=== PATIENT | male | born 1965 | race Caucasian/White ===

== ENCOUNTER 2018-07-07 02:18 | Inpatient (IN) ==
--- NOTE | 2018-07-07 03:30 | Emergency Department Note ---
Disposition Clinical Impression: Atrial fibrillation with RVR, Elevated troponin Fluid overload Qualifiers: Hypervolemia type: unspecified Qualified Code(s): E87.70 - Fluid overload, unspecified Disposition: Admitted As Inpatient Condition: Fair Referrals: NONE,PCP [Primary Care Provider] - Forms: ED Satisfaction Letter Time of Disposition: 05:55 General Adult HPI - General Chief complaint: ED Shortness of Breath/Dyspnea Stated complaint: sob and legs swelling Time Seen by Provider: 07/07/18 02:45 Source: patient, EMS Limitations: no limitations Nursing Notes Reviewed: Yes Vital Signs Reviewed: Yes - History of Present Illness HPI Narrative: Patient is a 52-year-old male presenting with difficulty breathing. Patient has little known medical history as he does not follow with her regular physician. Patient states over the past 4-5 months she has been noticing increased weight gain, with his regular weight being around 350 pounds, currently 390 pounds with significant lower extremity swelling. He states that shortness of breath is significantly worsened at night when he is laying flat, currently he does have to lay upward in a recliner to sleep. He denies any chest pain, no nausea or vomiting. No diaphoresis. Does state that his lower extrude a swelling has Nicho worsening over the past few weeks. Shortness of breath worse over the past few days significant worse over the last day. He does not wear oxygen at home. He is a chronic smoker. Patient denies history of heart issues, however he does not follow a physician regularly. He does not take any medications daily. He does state that he has been diagnosed with atrial fibrillation, however has been unable to afford his medications, therefore is no longer taking his warfarin. No fever, chills or cough. Pain Scale: 0 - Related Data Allergies Allergy/AdvReac Type Severity Reaction Status Date / Time No Known Allergies Allergy Verified 07/07/18 02:25 Review of Systems: In addition to that documented in the HPI above, the additional ROS was obtained: General: Denies fever. Denies chills. Denies weight loss. Denies behavioral change. Affirms weight gain Eyes: Denies visual changes. ENT: Denies nasal congestion. Denies sore throat. Denies hearing change. Cardio: Denies chest pain. Denies palpitations. Respiratory: Affirms shortness of breath. GI: Denies nausea, Denies vomiting, or diarrhea. Denies hematochezia denies melena. Denies abdominal pain. : Denies dysuria, hematuria, or urinary retention MSK: Affirms lower extrude a swelling Neuro: Denies slurred speech. Denies numbness or tingling. Denies focal weakness. Denies headache. Denies loss of consciousness. Psych: Denies mood changes. Past Medical History - Past Medical History Medical history: Reports: no medical history Psychiatric history: Reports: no psych history - Social History Smoking Status: Current every day smoker Smokeless Tobacco Status: No Alcohol use: Reports: rarely Drug use: Reports: none Physical Exam General: Conversant. No apparent distress. Follow commands. Appears stated age. Neck: No JVD. Trachea midline. Neck supple. Eyes: PERRL. No scleral icterus. HENT: Normocephalic and atraumatic. Moist mucus membranes. Cardiovascular: Tachycardic and irregular. Normal S1 and S2. No murmurs appreciated. Normal capillary refill. Extremities well perfused with 2+ distal pulses bilaterally. Patient has a significant 3+ pitting edema that extends up into his lower thigh Pulmonary: Normal and equal breath sounds bilaterally, anteriorly and posteriorly. No wheezes, rales, or rhonchi. Not in respiratory distress. Speaks in full sentences. Abdomen: Soft, nondistended, without tenderness. No bruits or masses. No guarding or rebound. Obese abdomen Neuro: Alert and oriented x3. No slurred speech. No focal deficits noted. Skin: No rashes noted on visualized skin. Musculoskeletal: No bony abnormalities visualized. Moves all extremities. Psych: Normal mood. Pleasant. Makes appropriate eye contact. - General Limitations: no limitations General appearance: alert, in no apparent distress Course Vital Signs Temperature 98.7 F 07/07/18 02:19 Pulse Rate 62 07/07/18 02:19 Respiratory Rate 20 07/07/18 02:19 Blood Pressure 185/126 07/07/18 02:19 O2 Sat by Pulse Oximetry 97 07/07/18 02:19 Temperature 98.7 F 07/07/18 02:19 Pulse Rate 105 07/07/18 06:13 Respiratory Rate 20 07/07/18 06:13 Blood Pressure 153/124 07/07/18 06:13 O2 Sat by Pulse Oximetry 95 07/07/18 06:13 Oxygen Delivery Oxygen Delivery Room Air Medical Decision Making - MDM Narrative Medical decision making narrative: Patient is a 52-year-old male presenting with shortness of breath. Patient does not see primary care provider regularly. States that he feels as though he has atrial fibrillation, he is not on any anticoagulant medication, is not sure if he is actually been diagnosed by physician. Patient has had weight gain diffusely throughout his entire body, also specifically to his lower extremities. On examination, patient is in no acute distress, alert and oriented 3, clear to auscultation bilaterally, he does have an irregular tachycardic rhythm. EKG on arrival, patient shows to be atrial fibrillation and RVR, patient does not know when this started. He also has about 3+ pitting edema that extends up into his distal thigh. CBC is unremarkable, BMP does showed serum creatinine of 2.2, otherwise unremarkable. Unknown baseline. Chest x-ray shows perihilar interstitial edema. Due to this as well as extensive appearance of fluid overload, we will hold fluids at this time. Lasix was started as BNP was in the 1300s. Troponin is also elevated at 0.18, suspect this is most likely demand ischemia secondary to atrial fibrillation and RVR as well as congestive heart failure with chronic fluid overload. Given these findings, as well as A. fib RVR, patient will be given 20 mg IV of Cardizem and started on drip. Patient was also given Lasix 40 mg IV. Patient is remained stable while here in the ER, at this point in time, given elevated troponin, atrial fibrillation with RVR as well as significant fluid overload with elevated BNP, those with the patient would be best suited for admission at this point in time. I did discuss this with the patient and he is agreeable. 618: Spoke with hospitalist, will start low-dose heparin, as well as order TSH, magnesium as well as give the patient potassium chloride 20 mEq. - Medical Records Medical records reviewed: Yes I reviewed the patient's medical records. - Lab Data Lab results reviewed: Yes I reviewed the patient's lab results. Result diagrams: 07/07/18 03:55 07/07/18 03:55 Lab Results 07/07/18 07/07/18 07/07/18 Range/Units 03:55 03:55 03:55 WBC 8.4 (4.3-11.1) K/mcL RBC 4.82 (4.19-5.50) M/mcL Hgb 13.9 (12.9-16.9) g/dL Hct 43.1 (37.5-50.1) % MCV 89.4 (83.0-100.0) fL MCH 28.8 (28.0-33.3) pg MCHC 32.3 (31.6-35.5) g/dL RDW 16.0 H (11.5-14.5) % Plt Count 253 (140-400) K/mcL MPV 9.7 (9.4-12.4) fL Immature Gran % 0.4 (0-4) % Seg Neutrophils % 75.0 % Lymphocytes % 16.7 % Monocytes % 7.0 % Eosinophils % 0.5 % Basophils % 0.4 % Neutrophils # 6.3 (1.6-8.9) K/mcL Lymphocytes # 1.4 (0.6-4.6) K/mcL Monocytes # 0.6 (0.0-1.3) K/mcL Eosinophils # 0.0 (0.0-0.6) K/mcL Basophils # 0.0 (0.0-0.2) K/mcL Sodium 138 (136-145) mEq/L Potassium 3.5 (3.5-5.1) mEq/L Chloride 102 (98-107) mEq/L Carbon Dioxide 25 (23-29) mEq/L BUN 32 H (6-20) mg/dL Creatinine 2.02 H (0.70-1.30) mg/dL Est GFR ( Amer) 42 L (> 60) Est GFR (Non-Af Amer) 35 L (> 60) BUN/Creatinine Ratio 16 (6-26) Glucose 124 H (70-105) mg/dL Calculated Osmolality 294 (280-300) Calcium 9.5 (8.6-10.3) mg/dL Troponin I 0.18 H* (< 0.04) ng/mL B-Natriuretic Peptide 1314 H (Less than 100) pg/mL - Radiology Data Radiology results reviewed: Yes I reviewed the patient's radiology results. Chest X-Ray 07/07/18 03:09 IMPRESSION: Cardiomegaly and perihilar interstitial edema. D/ / Jerrod Mcclendon MD / Jerrod Mcclendon MD Interpreting Provider: Jerrod Mcclendon MD - EKG Data EKG #1 EKG attestation: Yes I reviewed and interpreted this EKG. EKG results narrative: EKG performed at 320 ventricular rate of 133, irregularly irregular rhythm, left axis deviation, slight ST depression in lead V5 and V6, no ST segment elevation. Appears to be atrial fibrillation with RVR with nonspecific ST changes. S.B.Shaina - Ken.Christopher Situation: Demographics, MOA Background: Presenting Complaint, Relevant PMH, Meds, & Allergies Assessment: Vital Signs, Course and respsone to treatment, Exam Concerns, Patient/Family Expectation, Pertinant Lab Results, Outstanding Labs Recommendation: Barrier(s) to disposition, Recommendation based on pending studies, treatments, or consults S.B.A.Baltazar Report Given to: Hospitalist Naye Repor Time: 05:55
[2018-07-07 04:06] LABS: Basophils % 0.4 %; Eosinophils % 0.5 %; Hematocrit 43.1 % (37.5-50.1); Hemoglobin 13.9 g/dL (12.9-16.9); Immature Granulocytes % 0.4 % (0-4); Lymphocytes # 1.4 K/mcL (0.6-4.6); Lymphocytes % 16.7 %; Mean Corpuscular HGB Conc 32.3 g/dL (31.6-35.5); Mean Corpuscular Hemoglobin 28.8 pg (28.0-33.3); Mean Corpuscular Volume 89.4 fL (83.0-100.0); Mean Platelet Volume 9.7 fL (9.4-12.4); Monocytes # 0.6 K/mcL (0.0-1.3); Neutrophils # 6.3 K/mcL (1.6-8.9); Platelet Count 253 K/mcL (140-400); Red Blood Count 4.82 M/mcL (4.19-5.50)
[2018-07-07 04:35] LABS: Calcium 9.5 mg/dL (8.6-10.3); Potassium 3.5 mEq/L (3.5-5.1)
[2018-07-07 04:37] LABS: Troponin I 0.18 ng/mL (< 0.04)
[2018-07-07] MEDS ORDERED: Furosemide 40 MG/4 ML VIAL IVP ONE (04:57)
[2018-07-07] MEDS ORDERED: *HR* Heparin 5,000 UNIT/ML VIAL IVP PRN ×2 (06:16)
[2018-07-07] MEDS ORDERED: *HR* Heparin 5,000 UNIT/ML VIAL IVP ONE (06:16)
[2018-07-07] MEDS: Heparin 25,000 UNIT/250 ML D5W 25,000 UNIT/250 ML IV.SOLN IVC SCH (06:40)
--- NOTE | 2018-07-07 06:53 | Emergency Department Note ---
Disposition Clinical Impression: Atrial fibrillation with RVR, Elevated troponin Fluid overload Qualifiers: Hypervolemia type: unspecified Qualified Code(s): E87.70 - Fluid overload, unspecified Disposition: Admitted As Inpatient Condition: Fair General Adult HPI - General Chief complaint: ED Shortness of Breath/Dyspnea Stated complaint: sob and legs swelling Time Seen by Provider: 07/07/18 02:45 Source: patient, EMS Limitations: no limitations Nursing Notes Reviewed: Yes Vital Signs Reviewed: Yes - History of Present Illness Pain Scale: 0 - Related Data Allergies Allergy/AdvReac Type Severity Reaction Status Date / Time No Known Allergies Allergy Verified 07/07/18 02:25 Past Medical History - Past Medical History Medical history: Reports: no medical history Psychiatric history: Reports: no psych history - Social History Smoking Status: Current every day smoker Smokeless Tobacco Status: No Alcohol use: Reports: rarely Drug use: Reports: none Physical Exam - General Limitations: no limitations General appearance: alert, in no apparent distress Course Vital Signs Temperature 98.7 F 07/07/18 02:19 Pulse Rate 62 07/07/18 02:19 Respiratory Rate 20 07/07/18 02:19 Blood Pressure 185/126 07/07/18 02:19 O2 Sat by Pulse Oximetry 97 07/07/18 02:19 Temperature 98.7 F 07/07/18 02:19 Pulse Rate 104 07/07/18 06:48 Respiratory Rate 20 07/07/18 06:48 Blood Pressure 170/139 07/07/18 06:48 O2 Sat by Pulse Oximetry 95 07/07/18 06:13 Oxygen Delivery Oxygen Delivery Room Air Medical Decision Making - Lab Data Lab results reviewed: Yes I reviewed the patient's lab results. Result diagrams: 07/07/18 03:55 07/07/18 03:55 Lab Results 07/07/18 07/07/18 07/07/18 Range/Units 03:55 03:55 03:55 WBC 8.4 (4.3-11.1) K/mcL RBC 4.82 (4.19-5.50) M/mcL Hgb 13.9 (12.9-16.9) g/dL Hct 43.1 (37.5-50.1) % MCV 89.4 (83.0-100.0) fL MCH 28.8 (28.0-33.3) pg MCHC 32.3 (31.6-35.5) g/dL RDW 16.0 H (11.5-14.5) % Plt Count 253 (140-400) K/mcL MPV 9.7 (9.4-12.4) fL Immature Gran % 0.4 (0-4) % Seg Neutrophils % 75.0 % Lymphocytes % 16.7 % Monocytes % 7.0 % Eosinophils % 0.5 % Basophils % 0.4 % Neutrophils # 6.3 (1.6-8.9) K/mcL Lymphocytes # 1.4 (0.6-4.6) K/mcL Monocytes # 0.6 (0.0-1.3) K/mcL Eosinophils # 0.0 (0.0-0.6) K/mcL Basophils # 0.0 (0.0-0.2) K/mcL Sodium 138 (136-145) mEq/L Potassium 3.5 (3.5-5.1) mEq/L Chloride 102 (98-107) mEq/L Carbon Dioxide 25 (23-29) mEq/L BUN 32 H (6-20) mg/dL Creatinine 2.02 H (0.70-1.30) mg/dL Est GFR ( Amer) 42 L (> 60) Est GFR (Non-Af Amer) 35 L (> 60) BUN/Creatinine Ratio 16 (6-26) Glucose 124 H (70-105) mg/dL Calculated Osmolality 294 (280-300) Calcium 9.5 (8.6-10.3) mg/dL Troponin I 0.18 H* (< 0.04) ng/mL B-Natriuretic Peptide 1314 H (Less than 100) pg/mL - Radiology Data Radiology results reviewed: Yes I reviewed the patient's radiology results. Chest X-Ray 07/07/18 03:09 IMPRESSION: Cardiomegaly and perihilar interstitial edema. D/ / Jerrod Mcclendon MD / Jerrod Mcclendon MD Interpreting Provider: Jerrod Mcclendon MD - EKG Data EKG #1 EKG attestation: Yes I reviewed and interpreted this EKG. EKG results narrative: EKG shows atrial fibrillation with RVR with ventricular rate of 133. ST segment depression in V5 and V6. No ST segment elevation. Critical Care Time Critical Care Time: Yes Total Critical Care Time: 45 Attestation: Critical care performed: Time is exclusive of separately billable procedures. Time includes: direct [place] ent care, patient reassessment, coordination of patient care, interpretation of data (laboratory data, radiology data, and respiratory data), review of patient's medical records, medical consultation and documentation of patient care. Procedures included in critical care time: Procedures excluded from critical care time: Attestation Statement - Attestation Attestation: I, Joe Proctor MD, personally evaluated this patient and discussed their management with the resident physician. I reviewed the resident's note and agree with the documented findings, medical decision making, and plan of care. 52-year-old male present to the emergency department by EMS with a complaint of increasing swelling of his lower extremities and increasing shortness of breath. Patient states the symptoms started about February but got especially worse over the past 2 weeks. He denies any chest pain. He complains of dyspnea with any significant exertion. He also complains of orthopnea and states if he tries to lie down at all and get short of breath. He has been sleeping in a recliner and actually sometimes sleeps sitting straight up and leaning forward. He has not seen a doctor in years. He is not on any medications. He states that he has diagnosed himself with atrial fibrillation based on his feeling of his heart fluttering and beating irregular and rapid. On examination patient is a well-developed morbidly obese male in no acute distress. He is alert and oriented 3. There is no cyanosis or diaphoresis. Patient is tachypneic. Chest is nontender to palpation. Breath sounds are clear and equal bilaterally. Heart is irregularly irregular with a moderate tachycardia. Abdomen soft and nontender with normal bowel sounds. Patient does have 3+ pitting edema of the lower extremities bilaterally. EKG shows atrial fibrillation with RVR with ventricular rate of 133. ST segment depression in V5 and V6. No ST segment elevation. Chest x-ray shows cardiomegaly and perihilar congestion. Labs reviewed. Elevated troponin and BNP. Patient received a Cardizem bolus and started on Cardizem infusion. He also received IV Lasix. Started on heparin infusion. The hospitalist, Dr. Silver, was consulted and accepted admission of the patient.
[2018-07-07 07:19] LABS: Hematocrit 43.5 % (37.5-50.1); Hemoglobin 13.9 g/dL (12.9-16.9); Mean Corpuscular Hemoglobin 28.7 pg (28.0-33.3); Mean Corpuscular Volume 89.9 fL (83.0-100.0); Mean Platelet Volume 9.7 fL (9.4-12.4); Platelet Count 258 K/mcL (140-400); Red Blood Count 4.84 M/mcL (4.19-5.50); Red Cell Distribution Width 16.2 % (11.5-14.5)
[2018-07-07 07:36] LABS: Heparin anti-factor XA UFH 0.01 IU/mL (0.30-0.70); INR 1.2
[2018-07-07 07:40] LABS: Magnesium 2.3 mg/dL (1.6-2.6)
[2018-07-07 07:53] LABS: Thyroid Stimulating Hormone 7.25 mcIU/mL (0.340-5.600)
[2018-07-07] MEDS ORDERED: MOM Conc 10 ML UD.LIQ PO PRN (08:01)
[2018-07-07] MEDS ORDERED: Naloxone 0.4 MG/ML INJ IVP PRN (08:01)
[2018-07-07] MEDS ORDERED: Ondansetron 4 MG/2 ML VIAL IVP PRN (08:01)
[2018-07-07] MEDS ORDERED: Mag Hydrox/Al Hydrox/Simeth 30 ML UDC PO PRN (08:01)
--- NOTE | 2018-07-07 09:27 | Internal Med History&Physical ---
Date of Encounter: 07/07/18 Time of Encounter: 10:02 Internal Medicine - H&P: HPI Chief complaint: short of breath Admitted From: Emergency Dept Plans for Post Hospital Care: Home History of present illness: Mr. Potter is a 52 year old male with no reported medical history (but not been to doctor in long time) presented to ED with dyspnea and palpitations. He was evaluated in ED and found to be in rapid a fib and subsequently admitted. Mr Potter stated he has had issues with palpitations for about the last year. He feels that his heart rate is rapid and irregular at times but normal other times. His father has a fib and patient thought that was the problem. Over the last few months he has also noted increased dyspnea and edema. These symptoms have become much worse over last 2 weeks. No fever or chills. Denies chest pain. Just hard to take a deep breath at times. He has been sleeping upright over last 2 weeks and has awakened with dyspnea. Nothing has seemed to help. Denies prior hx of cardiac disease except he has had untreated hypertension he thinks for about the last 3 years. At this time he is feeling somewhat better. Heart rate is better controlled with Cardizem drip. Past Med Surg Social Fam HX - Past Medical History Source: patient, obtained from family Medical history: hypertension Psychiatric history: no psych history - Past Surgical History Surgical History: no surgical history - Social History Smoking Status: Current every day smoker Packs per day: 1 pack per week Smokeless Tobacco Status: No Alcohol use: rarely Drug use: none Occupational status: employed (personnel director) Current living situation: With Family Activity Level: Independent ambulation Recent Out of Country Travel Within the Last 8 Weeks: No Exposure or Possible Exposure to Illness During Travel: No - Family History Father Living Status: Hx Family Cardiac Disorders: Yes (Had AFIB) Hx Family Respiratory Disorders: Yes (absess outside of lung) Hx Family Cancer: No Hx Family GI Disorders: Yes (lost part of stomach due to ulcers) Hx Family Genitourinary Disorders: No Hx Family Endocrine Disorder: No Hx Family Musculoskeletal Disorders: No Hx Family Neuromuscular Disorders: No Hx Family Neurologic Disorders: No Hx Family HEENT Disorders: Yes (cataracts) Hx Family Autoimmune Disorders: No Hx Family Reproductive Disorders: No Hx Family Psychosocial Disorders: No Hx Family Medical Disorders: No Mother Living Status: Hx Family Endocrine Disorder: Yes (thyroid problem) Internal Medicine - H&P: Meds Allergy/AdvReac Type Severity Reaction Status Date / Time No Known Allergies Allergy Verified 07/07/18 02:25 All Systems PM: A 10-system review of systems was performed and is negative for pertinent findings except as documented above in the HPI. - Constitutional Constitutional: fatigue, malaise, weight gain - EENT Eyes: no discharge, no loss of vision Ears: no decreased hearing Nose, mouth and throat: no dental pain, no post-nasal drip - Cardiovascular Cardiovascular ROS IM: dyspnea, dyspnea on exertion, edema, irregular heart rhythm, orthopnea, palpitations, paroxysmal nocturnal dyspnea, no chest pain, no lightheadedness, no syncope - Respiratory Respiratory: dyspnea, dyspnea on exertion, no cough, no wheezing, no snoring, no pain with cough Additional comments: stated he does have apnea at night. - Gastrointestinal Gastrointestinal: bloating, no abdominal pain, no diarrhea, no vomiting - Genitourinary Genitourinary ROS male: no dysuria, no nocturia - Musculoskeletal Musculoskeletal ROS IM: back pain, no arthralgias - Integumentary Integumentary IM: erythema (legs), no rash - Neurological Neurological ROS: no abnormal gait, no memory loss, no numbness - Endocrine Endocrine IM: no cold intolerance, no polydipsia - Hematologic/Lymphatic Hematologic/Lymphatic: no easy bleeding - Allergic/Immunologic Allergic/Immunologic: no itchy eyes - Constitutional Vitals: Temp Pulse Resp BP Pulse Ox 98.7 F 113 17 172/141 95 07/07/18 08:07 07/07/18 08:07 07/07/18 08:29 07/07/18 08:07 07/07/18 08:29 General appearance: Present: A&O X 3, answers questions appropriately Exam: See below - Head Head exam: Present: normocephalic - Eye Eye exam: Present: EOMI, PERRL Pupils: Present: PERRL - ENT ENT exam: Present: mucous membranes moist - Neck Neck exam general surgery: Present: supple. Absent: thyromegaly - Respiratory Respiratory exam: Present: rales (L base greater than R). Absent: rhonchi, wheezes - Cardiovascular Cardiovascular exam: Present: irregular rhythm, tachycardia - GI/Abdominal GI/Abdominal exam: Present: distended, normal bowel sounds, soft. Absent: mass, tenderness - Extremities Exam Extremities exam: Present: full ROM, tenderness (Both legs with edema above knees and erythema noted both lower legs. No open areas. Tinea noted.), warm - Back Exam Back exam: Present: full ROM - Neurological Exam Neurological exam: Present: alert, oriented X3, no focal deficits - Psychiatric Psychiatric exam: Present: normal affect, normal mood - Skin Skin exam: Present: dry, erythema, warm Internal Med - H&P Results - Labs CBC & Chem 7: 07/07/18 07:07 07/07/18 03:55 Labs: Short CBC 07/07/18 07/07/18 Range/Units 03:55 07:07 WBC 8.4 8.8 (4.3-11.1) K/mcL Hgb 13.9 13.9 (12.9-16.9) g/dL Hct 43.1 43.5 (37.5-50.1) % Plt Count 253 258 (140-400) K/mcL Neutrophils # 6.3 (1.6-8.9) K/mcL BMP 07/07/18 03:55 Sodium 138 Potassium 3.5 Chloride 102 Carbon Dioxide 25 BUN 32 H Creatinine 2.02 H Glucose 124 H Calcium 9.5 Cardiac Enzymes 07/07/18 Range/Units 03:55 Troponin I 0.18 H* (< 0.04) ng/mL - EKG Data -: EKG Interpreted by Myself Rate: tachycardia (Rapid a fib. No acute change) - Impressions ITS Impressions Chest X-Ray 07/07/18 03:09 IMPRESSION: Cardiomegaly and perihilar interstitial edema. D/ / Jerrod Mcclendon MD / Jerrod Mcclendon MD Interpreting Provider: Jerrod Mcclendon MD - Assessment and Plan (1) CHF (congestive heart failure) Current Visit: Yes Status: Suspected Assessment and plan: Pt presents with symptoms of dyspnea and edema. Echo ordered - suspect systolic heart failure. Diurese today. Qualifiers: Heart failure type: systolic Heart failure chronicity: acute on chronic Qualified Code(s): I50.23 - Acute on chronic systolic (congestive) heart failure (2) Atrial fibrillation Current Visit: Yes Status: Suspected Assessment and plan: Pt with hx of one year of symptoms. Was in rapid atrial fibrillation on admission Currently on Cardizem drip. Heparin drip started. Echo ordered. Coreg added for rate and BP as well. Pt has limited finances which will affect PO medications at discharge. Qualifiers: Atrial fibrillation type: paroxysmal Qualified Code(s): I48.0 - Paroxysmal atrial fibrillation (3) Morbid obesity with BMI of 45.0-49.9, adult Current Visit: Yes Status: Chronic Assessment and plan: Chronic issue. (4) Demand ischemia Current Visit: Yes Status: Acute Assessment and plan: Pt has mild elevation of troponin on admission Plan serial checks for 3 instances. (5) CKD (chronic kidney disease) stage 3, GFR 30-59 ml/min Current Visit: Yes Status: Suspected Assessment and plan: Pt has elevated creatinine. No baseline in computer. Continue cautious diuresis and rate control. Recheck labs tomorrow. (6) Hypertension Current Visit: Yes Status: Chronic Assessment and plan: Pt has hx of hypertension for at least 3 years and is on no meds. Coreg added. No JOJO or ARB due to renal function No hydralazine to prevent reflex tachycardia. Qualifiers: Hypertension type: essential hypertension Qualified Code(s): I10 - Essential (primary) hypertension - Time Spent With Patient Total time spent is greater than 50% in coordination of care (as documented) at patient's floor/unit and/or counseling patient:
--- NOTE | 2018-07-07 10:31 | Electrocardiograph Report ---
[address] [place], [place] [address] Test Date: 2018-07-07 Pat Name: Law Potter Department: EXAM4 Room: 2S2 Gender: M [employer] Fin[employer]: : 1965 Requested By: Haider Cardona Order Number: [id number] Reading MD: Bernabe Gilliland Measurements Intervals [place] Rate: 133 P: NM: QRS: -76 QRSD: 121 T: 96 QT: 359 QTc: 534 Interpretive Statements Atrial fibrillation with rapid ventricular response Nonspecific IVCD with LAD Anteroseptal infarct, old Abnormal T, consider ischemia, lateral leads Electronically Signed On 07-07-2018 10:30:03 EDT by Bernabe Gilliland
[2018-07-07] MEDS ORDERED: Perflutren Lipid Microsphere 1.3 ML in 0.9 % Sodium Chloride 8.7 ML IVP ONE (13:20)
[2018-07-07] MEDS: Furosemide 40 MG/4 ML VIAL IVP SCH (16:01)
[2018-07-07 16:52] LABS: Estimated Average Glucose 120 mg/dl; Hemoglobin A1C 5.8 %
[2018-07-08] MEDS ORDERED: *HR* Metoprolol 5 MG/5 ML VIAL IVP ONE ×2 (00:06→23:24)
[2018-07-08] MEDS: Heparin 25,000 UNIT/250 ML D5W 25,000 UNIT/250 ML IV.SOLN IVC SCH ×2 (02:16→15:23)
[2018-07-08 06:53] LABS: Calcium 9.6 mg/dL (8.6-10.3); Chol/HDL Ratio 2.4 (0-4.9); Magnesium 2.2 mg/dL (1.6-2.6); Potassium 3.4 mEq/L (3.5-5.1)
[2018-07-08 07:01] LABS: Hematocrit 41.5 % (37.5-50.1); Hemoglobin 13.4 g/dL (12.9-16.9); Mean Corpuscular HGB Conc 32.3 g/dL (31.6-35.5); Mean Corpuscular Hemoglobin 29.3 pg (28.0-33.3); Mean Corpuscular Volume 90.6 fL (83.0-100.0); Platelet Count 255 K/mcL (140-400); Red Blood Count 4.58 M/mcL (4.19-5.50); Red Cell Distribution Width 16.5 % (11.5-14.5)
[2018-07-08] MEDS: Furosemide 40 MG/4 ML VIAL IVP SCH (08:08)
--- NOTE | 2018-07-08 09:45 | Cardiology Consult Note ---
<Ray Jules - Last Filed: 07/08/18 10:30> Date of Encounter: 07/08/18 Time of Encounter: 09:45 Assessment and Plan (1) CHF (congestive heart failure) Current Visit: Yes Status: Acute Per Cardiology: Presented with CHF symptoms. Chest x-ray showed cardiomegaly with edema. EF on echo 30-35%. BNP 1300s. On IV Lasix 40 mg twice a day per primary service. Patient reports baseline weight about 360 pounds, currently about 35-40 pound we ight gain. Current net I&O -2825ml. we will implement strict I&O, daily weight, 1.5 L fluid restriction. On Coreg 3.125 mg by mouth twice a day, heart rates in the 80s to 90s, systolic blood pressures in the 150s, we will titrate beta gurmeet. We will avoid adding JOJO inhibitor or ARB at this point due to kidney function. Recommendations for left heart catheterization, however optimize clinica status and recommend nephrology consult for concerns of ZBIGNIEW vs CKD. Anticipate may need more aggressive diuresis, will defer to nephrology recommendations. Qualifiers: Heart failure type: systolic Heart failure chronicity: acute on chronic Qualified Code(s): I50.23 - Acute on chronic systolic (congestive) heart failure (2) Elevated troponin Current Visit: Yes Status: Acute Per Cardiology: Troponins flat and adynamic of 0.18, 0.17, 0.14, and 0.16. Chest pain-free. Suspect demand ischemia in the setting of CHF, ZBIGNIEW vs CKD, A. fib with RVR, however non-STEMI cannot be excluded. Plan for left heart catheterization during this hospital stay. We will consider cardiac rehabilitation consult if appropriate based on clinical course. On heparin drip. (3) Atrial fibrillation Current Visit: Yes Status: Acute Per Cardiology: ECG showed A. fib in the 130s. Currently A. fib in the 90s to 100s on telemetry. Cardizem drip now off. We will discontinue. Recommend avoiding calcium channel gurmeet with EF of 3035%. Titrating beta gurmeet. Continue with rate control strategy for now. Recommend further ischemic evaluation. Regarding long-term anticoagulation, [id number] = at least a 2 (HTN, CHF). Continue heparin drip for now. We will need to address long-term anticoagulation during hospital course. Qualifiers: Atrial fibrillation type: unspecified Qualified Code(s): I48.91 - Unspecified atrial fibrillation (4) CKD (chronic kidney disease) stage 3, GFR 30-59 ml/min Current Visit: Yes Status: Acute Per Cardiology: AK versus EKG. Patient denies any past history of CK D. Does not follow with PCP. Recommend nephrology consult. Additionally, anticipate left heart catheterization during hospital stay. Discussion w patient/family: The assessment and plan as outlined above was discussed with the patient and/or family members who expressed understanding and agreement. All questions were answered. Thank you for involving us in the care of your patient. Please call with any questions. History of Present Illness Consult date: 07/08/18 Consult reason: EF 30% Chief complaint: URENA, Palps History of present illness: Mr. Potter is a 52 year old male with a relevant past medical history of hypertension, nicotine abuse. Cardiology consult for EF of 30%. Patient seen with at bedside. He reports progressively worsening dyspnea on exertion over the past 3-4 months. 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 Additionally, he indicates significant increased swelling to lower extremity is from baseline. He does report about 35-40 pound weight gain. He denies any chest pain symptoms. He does report intermittent palpitations for quite some time, however recently increase in frequency and has been continuous. He denies any known history of atrial fibrillation, CAD, or CHF. Does not have a PCP. He denies any active bleeding or blood loss. Reports shortness of breath has improved somewhat during hospital stay with Lasix. He denies any dizziness, syncope, falls. He reports he smokes about one pack per week the past 30 years. Past Med Surg Social Fam HX - Past Medical History Attestation: Yes The following information was validated with the patient. Source: patient, old records reviewed, obtained from family Medical history: hypertension Psychiatric history: no psych history - Past Surgical History Surgical History: no surgical history - Social History Smoking Status: Current every day smoker Packs per day: 1 pack per week Smokeless Tobacco Status: No Alcohol use: rarely Drug use: none - Family History Father Living Status: Hx Family Cardiac Disorders: Yes (Had AFIB) Hx Family Respiratory Disorders: Yes (absess outside of lung) Hx Family Cancer: No Hx Family GI Disorders: Yes (lost part of stomach due to ulcers) Hx Family Genitourinary Disorders: No Hx Family Endocrine Disorder: No Hx Family Musculoskeletal Disorders: No Hx Family Neuromuscular Disorders: No Hx Family Neurologic Disorders: No Hx Family HEENT Disorders: Yes (cataracts) Hx Family Autoimmune Disorders: No Hx Family Reproductive Disorders: No Hx Family Psychosocial Disorders: No Hx Family Medical Disorders: No Mother Living Status: Hx Family Endocrine Disorder: Yes (thyroid problem) Medications and Allergies Allergy/AdvReac Type Severity Reaction Status Date / Time No Known Allergies Allergy Verified 07/07/18 02:25 All Systems Review: The remainder of the systems were reviewed and are negative - Constitutional Constitutional: weight gain - Cardiovascular Cardiovascular: as per HPI, dyspnea on exertion, irregular heart rhythm, leg edema, palpitations - Respiratory Respiratory: dyspnea Physical Examination Vital Signs, Last 4 Hours Temp Pulse Resp BP Pulse Ox 07/08/18 06:44 98.2 F 88 15 155/126 95 General: Conversant, No Apparent Distress HEENT: Atraumatic, Normocephaly, Mucus Membranes Moist Neck: No JVD, Normal carotid pulses Cardiac: No Murmur, Other (Irregularly irregular) Lungs: No Wheeze, Rales, Rhonchi, Other (Mild conversational dyspnea noted, diminished breath sounds at bilateral bases) Neuro: Alert and responsive, No focal deficits noted Abdomen: Soft, Non-Tender Skin: No rashes noted on visualized skin Musculoskeletal: No Chest Wall Tenderness Extremities: No Clubbing, No Cyanosis, Normal Pulses, Other (> than +3 bilateral lower extremity edema to knees) Results 07/08/18 05:52 07/08/18 05:52 Lab Results Laboratory Tests 07/07/18 07/07/18 07/07/18 03:55 03:55 07:07 Hgb Hct INR Potassium Creatinine Est GFR (Non-Af Amer) Hemoglobin A1c Magnesium Troponin I 0.18 H* B-Natriuretic Peptide 1314 H LDL Cholesterol, Calc TSH 7.250 H 07/07/18 07/07/18 07/07/18 07:07 07:07 09:05 Hgb Hct INR 1.2 Potassium Creatinine Est GFR (Non-Af Amer) Hemoglobin A1c 5.8 H Magnesium Troponin I 0.17 H* B-Natriuretic Peptide LDL Cholesterol, Calc TSH 03/14/19 03/14/19 03/15/19 15:31 21:37 05:52 Hgb 13.4 Hct 41.5 INR Potassium Creatinine Est GFR (Non-Af Amer) Hemoglobin A1c Magnesium Troponin I 0.14 H* 0.16 H* B-Natriuretic Peptide LDL Cholesterol, Calc TSH 07/08/18 05:52 Hgb Hct INR Potassium 3.4 L Creatinine 2.17 H Est GFR (Non-Af Amer) 32 L Hemoglobin A1c Magnesium 2.2 Troponin I B-Natriuretic Peptide LDL Cholesterol, Calc 35 TSH ITS Impressions Chest X-Ray 07/07/18 03:09 IMPRESSION: Cardiomegaly and perihilar interstitial edema. D/ / Jerrod Mcclendno MD / Jerrod Mcclendon MD Interpreting Provider: Jerrod Mcclendon MD Echocardiogram 07/07/18 08:06 Impressions: LVEF 30-35%. Moderately dilated left ventricle. Moderate concentric left ventricular hypertrophy. Indeterminate diastolic function. Normal right ventricular structure and function. Moderate biatrial enlargement Mild mitral regurgitation. No evidence of pulmonary hypertension. Covering hospitalist notified via the paging system Left Ventricular Wall Motion: Rest Echo Findings The apex, apical inferior, mid inferior, basal inferior, apical anterior, mid anterior, basal anterior, apical septal, mid inferior septal, basal inferior septal, apical lateral, mid anterior lateral, basal anterior lateral, mid anterior septal, mid inferior lateral, basal anterior septal and basal inferior lateral wilson were hypokinetic. Findings: Study Quality * Technically adequate exam. ECG Findings * Atrial fibrillation. Left Ventricle * LVEF 30-35%. * Moderately dilated left ventricle. * Moderate concentric left ventricular hypertrophy. * Indeterminate diastolic function. * Definity echo contrast was used. * There is no LV thrombus. * Severe global left ventricular systolic dysfunction. Right Ventricle * Normal right ventricular structure and function. Left Atrium * Moderate biatrial enlargement Right Atrium * Moderately dilated right atrium. Interatrial Septum * No evidence of PFO by color Doppler. Aortic Valve * Aortic valve not well visualized. * No aortic regurgitation. * No aortic stenosis. Mitral Valve * Normal mitral valve structure. * No mitral stenosis. * Mild mitral regurgitation. Tricuspid Valve * Trace tricuspid regurgitation. * No tricuspid stenosis. * Normal tricuspid valve structure. * No evidence of pulmonary hypertension. Pulmonic Valve * No pulmonic regurgitation. Aorta * Normally sized aortic root. Pericardium * The pericardium appears normal. IVC * The IVC is dilated. Pulmonary Artery * Normal visualized portions of the main pulmonary artery. Active Medications Al Hydrox/Mg Hydrox/Simethicone (Maalox) 15 ml PO Q6HR PRN PRN Reason: Dyspepsia Stop: 01/06/19 08:02 Carvedilol (Coreg) 3.125 mg PO BIDWM SMITHA; Protocol Stop: 01/06/19 09:46 Last Admin: 07/08/18 08:07 Dose: 3.125 mg Furosemide (Lasix) 40 mg IVP BIDDIURETIC SMITHA Stop: 01/06/19 17:01 Last Admin: 07/08/18 08:08 Dose: 40 mg Heparin Sodium (Porcine) (Heparin) 4,000 unit IVP Q6HR PRN PRN Reason: SEE COMMENTS Stop: 01/06/19 06:17 Last Admin: 07/07/18 16:42 Dose: 4,000 unit Heparin Sodium (Porcine) (Heparin) 2,000 unit IVP Q6H PRN PRN Reason: SEE COMMENTS Stop: 01/06/19 06:17 Diltiazem HCl 50 mg/ Sodium (Chloride) 50 mls @ 5 mls/hr IVC .Q10H SMITHA; Protocol Stop: 01/06/19 04:31 Last Admin: 07/08/18 00:35 Dose: Not Given Heparin Sodium/Dextrose (Heparin 25,000 Unit/250 Ml D5w) 25,000 unit in 250 mls @ 9.874 mls/hr IVC .Q24H SMITHA; Protocol Stop: 01/06/19 06:31 Last Titration: 07/08/18 07:05 Dose: 9.52 unit/kg/hr, 17.1 mls/hr Magnesium Hydroxide (Milk Of Magnesia Conc) 10 ml PO DAILY PRN PRN Reason: Constipation Stop: 01/06/19 08:02 Naloxone HCl (Narcan) 0.4 mg IVP Q2M PRN PRN Reason: SEE COMMENTS Stop: 01/06/19 08:02 Ondansetron HCl (Zofran) 4 mg IVP Q8HR PRN PRN Reason: Nausea And Vomiting Stop: 01/06/19 08:02 - Imaging and Cardiology Echo: report reviewed - EKG Interpretation EKG results cardiology: personally reviewed (atrial fibrillation the 130s) Consult Discharge Plan - Plan Referrals: NONE,PCP [Primary Care Provider] - <Maine Duenas - Last Filed: 07/08/18 13:19> Date of Encounter: 07/08/18 - Attending Attestation I examined this patient and my medical decision-making was reviewed with the [employer]ER. I agree with the documented findings, disposition and treatment plan as described. Assessment and Plan Discussion w patient/family: The assessment and plan as outlined above was discussed with the patient and/or family members who expressed understanding and agreement. All questions were ans wered. Thank you for involving us in the care of your patient. Please call with any questions. History of Present Illness History of present illness: Mr. Potter is a 52 year old male All Systems Review: The remainder of the systems were reviewed and are negative Physical Examination Vital Signs, Last 4 Hours Temp Pulse Resp BP Pulse Ox 07/08/18 11:04 98.6 F 104 16 169/137 95 Results 07/08/18 05:52 07/08/18 05:52 Lab Results 07/07/18 07/07/18 07/08/18 15:31 21:37 05:52 WBC 7.4 Hgb 13.4 Hct 41.5 Plt Count 255 Sodium Potassium Chloride Carbon Dioxide BUN Creatinine Glucose Calcium Magnesium Troponin I 0.14 H* 0.16 H* 07/08/18 05:52 WBC Hgb Hct Plt Count Sodium 141 Potassium 3.4 L Chloride 100 Carbon Dioxide 28 BUN 31 H Creatinine 2.17 H Glucose 100 Calcium 9.6 Magnesium 2.2 Troponin I
--- NOTE | 2018-07-08 09:52 | Internal Med Progress Note ---
<Ney Alvarez - Last Filed: 07/08/18 16:59> Hospitalist Progress Note - Encounter Date of Encounter: 07/08/18 - Exam Vitals: Temp Pulse Resp BP Pulse Ox 98.3 F 102 16 163/108 92 07/08/18 15:21 07/08/18 15:21 07/08/18 15:21 07/08/18 15:21 07/08/18 15:21 - Assessment and Plan (1) CHF (congestive heart failure) Current Visit: Yes Status: Acute (2) Atrial fibrillation Current Visit: Yes Status: Chronic (3) Morbid obesity with BMI of 45.0-49.9, adult Current Visit: Yes Status: Chronic (4) Demand ischemia Current Visit: Yes Status: Acute (5) CKD (chronic kidney disease) stage 3, GFR 30-59 ml/min Current Visit: Yes Status: Acute (6) Hypertension Current Visit: Yes Status: Chronic - Time Spent with Patient Total time spent is greater than 50% in coordination of care (as documented) at patient's floor/unit and/or counseling patient: Internal Medicine: Result - Labs CBC & Chem 7: 07/08/18 05:52 07/08/18 05:52 Labs: Short CBC 07/08/18 Range/Units 05:52 WBC 7.4 (4.3-11.1) K/mcL Hgb 13.4 (12.9-16.9) g/dL Hct 41.5 (37.5-50.1) % Plt Count 255 (140-400) K/mcL BMP 07/08/18 05:52 Sodium 141 Potassium 3.4 L Chloride 100 Carbon Dioxide 28 BUN 31 H Creatinine 2.17 H Glucose 100 Calcium 9.6 Cardiac Enzymes 07/07/18 Range/Units 21:37 Troponin I 0.16 H* (< 0.04) ng/mL - ABG Interpretation ABG results: PT/INR, D-dimer PT 13.0 Seconds (9.4-12.1) H 07/07/18 07:07 Consult Discharge Plan - Plan Referrals: NONE,PCP [Primary Care Provider] - [facility]] - Attending Attestation I examined this patient and my medical decision-making was reviewed with the Res ident Physician on 07/08/18. I agree with the documented findings, disposition and treatment plan as described except to the extent set forth below. Mr Potter is currently admitted for acute systolic CHF and rapid a fib. He remains moderate to high risk due to potential for worsening clinical status. Mr Potter is doing OK. He has diuresed well. No fever or chills. Renal function remains elevated. No CP. Exam alert comfortable Mucus membranes dry Heart irreg - not tachy Lungs decreased Abd soft Less edema today. i/P 1. Acute systolic CHF - diuresing. Cardiology input appreciated 2. Chronic atrial fib - rate better controlled 3. Probable CKD - renal to see Further diagnoses and plan as above. <Diana Bradshaw - Last Filed: 07/08/18 17:50> Hospitalist Progress Note - Encounter Date of Encounter: 07/08/18 Time of Encounter: 08:30 - Subjective Interval History: Patient reports palpitations has ceased. His shortness or breath and edema is improving. He reports polyuria but no difficulty or burning with urinations. No events overnight. Cardizem drip has been titrated off. - Exam Vitals: Temp Pulse Resp BP Pulse Ox 98.2 F 88 15 155/126 95 07/08/18 06:44 07/08/18 06:44 07/08/18 06:44 07/08/18 06:44 07/08/18 06:44 Exam: General: pleasant, in no acute distress, A&Ox3 Head: atraumatic, normocephalic, Mouth: mucous membranes moist, no mucosal lesions, no obvious caries Cardiac:irregularly irregular Respiratory: rales worse in lung bases Abdomen: BSx4, Soft, not distended, no tenderness, no masses, no organomegaly Extremities: pulses intact,normal ROM, bilat pedeal edema +2 pitting up to knees Psychiatric: normal mood and affect, intact memory, good judgement and insight - Assessment and Plan (1) Atrial fibrillation with RVR Current Visit: Yes Status: Acute Assessment and Plan: New diagnosis of A fib symptomatic and seen on EKG; currently rate controlled A fib off cardizem drip . CAD VASC of 2 - increase coreg due to hypertension - continue heparin drip - cardiology consulted (2) Elevated troponin Current Visit: Yes Status: Acute Assessment and Plan: Elevated troponin trended 0.16, 0.14, 0.17 to 0.18 with out EKG acute change of ST elevations or chest pain - cardiology consulted and advised may be demand ischemia but can not use out NSTEMI thus plan for LHC during hospital stay - continue cardiac monitoring - continue heparin drip (3) CHF (congestive heart failure) Current Visit: Yes Status: Acute Assessment and Plan: New diagnosis of CHF with increased shortness of breath and pedal edema after long untreated HTN. Chest XR showed cardiomegaly and pulmonary edema with BNP of 1314 on admit. Lipid panel essentially normal with low HDL 34. - increased dose of coreg - continue IV lasix 40 mg Bid - strict I/Os - daily weights - fluid restriction, cardiac and renal diets - cardiology consulted ECHO 07-07-18 EF 30-35% with moderate LVH and indeterminate diastolic function (4) Hypertension Current Visit: Yes Status: Chronic Assessment and Plan: Uncontrolled with BP on admit 185/126 now 140/115. Avoid JOJO or ARB due to renal toxic . Avoid hydralazine due to rebound HTN - increase coreg dose - prn lopressor with parameter (5) CKD (chronic kidney disease) stage 3, GFR 30-59 ml/min Current Visit: Yes Status: Acute Assessment and Plan: Undiagnosed CKD v ZBIGNIEW with Scr 2.17 from 1.02 with unknown baseline and no history of CKD - avoid nephrotoxic - strict I/Os - nephrology consulted as requested by cardiology for recommendations with plans for [facility] (6) Pre-diabetes Current Visit: Yes Status: Acute Assessment and Plan: New diagnosis pre-DM with A1c 5.8; mild hyperglycemia 100-130 - patient referred for residency clinic for out patient follow up (7) Morbid obesity with BMI of 45.0-49.9, adult Current Visit: Yes Status: Chronic Assessment and Plan: Morbid obesity modifiable risk factor for many diagnosis above Elevated TSH with normal free T thus less likely to be due to hypothyroid (8) Uninsured Current Visit: Yes Status: Acute Assessment and Plan: Social work following with [facility] paperwork - expect in patient cost may be covered but will attempt to keep medication cost in mind on discharge DVT Prophylaxis: heparin drip - Time Spent with Patient Total time spent is greater than 50% in coordination of care (as documented) at patient's floor/unit and/or counseling patient: Internal Medicine: Result - Labs CBC & Chem 7: 07/08/18 05:52 07/08/18 05:52 Labs: Short CBC 07/08/18 Range/Units 05:52 WBC 7.4 (4.3-11.1) K/mcL Hgb 13.4 (12.9-16.9) g/dL Hct 41.5 (37.5-50.1) % Plt Count 255 (140-400) K/mcL BMP 07/08/18 05:52 Sodium 141 Potassium 3.4 L Chloride 100 Carbon Dioxide 28 BUN 31 H Creatinine 2.17 H Glucose 100 Calcium 9.6 Cardiac Enzymes 07/07/18 07/07/18 07/07/18 Range/Units 09:05 15:31 21:37 Troponin I 0.17 H* 0.14 H* 0.16 H* (< 0.04) ng/mL - ABG Interpretation ABG results: PT/INR, D-dimer PT 13.0 Seconds (9.4-12.1) H 07/07/18 07:07 - Impressions Impressions Echocardiogram 07/07/18 08:06 Impressions: LVEF 30-35%. Moderately dilated left ventricle. Moderate concentric left ventricular hypertrophy. Indeterminate diastolic function. Normal right ventricular structure and function. Moderate biatrial enlargement Mild mitral regurgitation. No evidence of pulmonary hypertension. Covering hospitalist notified via the paging system Left Ventricular Wall Motion: Rest Echo Findings The apex, apical inferior, mid inferior, basal inferior, apical anterior, mid anterior, basal anterior, apical septal, mid inferior septal, basal inferior septal, apical lateral, mid anterior lateral, basal anterior lateral, mid anterior septal, mid inferior lateral, basal anterior septal and basal inferior lateral wilson were hypokinetic. Findings: Study Quality * Technically adequate exam. ECG Findings * Atrial fibrillation. Left Ventricle * LVEF 30-35%. * Moderately dilated left ventricle. * Moderate concentric left ventricular hypertrophy. * Indeterminate diastolic function. * Definity echo contrast was used. * There is no LV thrombus. * Severe global left ventricular systolic dysfunction. Right Ventricle * Normal right ventricular structure and function. Left Atrium * Moderate biatrial enlargement Right Atrium * Moderately dilated right atrium. Interatrial Septum * No evidence of PFO by color Doppler. Aortic Valve * Aortic valve not well visualized. * No aortic regurgitation. * No aortic stenosis. Mitral Valve * Normal mitral valve structure. * No mitral stenosis. * Mild mitral regurgitation. Tricuspid Valve * Trace tricuspid regurgitation. * No tricuspid stenosis. * Normal tricuspid valve structure. * No evidence of pulmonary hypertension. Pulmonic Valve * No pulmonic regurgitation. Aorta * Normally sized aortic root. Pericardium * The pericardium appears normal. IVC * The IVC is dilated. Pulmonary Artery * Normal visualized portions of the main pulmonary artery. <Ney Alvarez - Last Filed: 07/08/18 16:59> (1) CHF (congestive heart failure) Qualifiers: Heart failure type: systolic Heart failure chronicity: acute on chronic Qualified Code(s): I50.23 - Acute on chronic systolic (congestive) heart failure (2) Atrial fibrillation Qualifiers: Atrial fibrillation type: persistent Qualified Code(s): I48.1 - Persistent atrial fibrillation (6) Hypertension Qualifiers: Hypertension type: essential hypertension Qualified Code(s): I10 - Essential (primary) hypertension <Diana Bradshaw - Last Filed: 07/08/18 17:50> (3) CHF (congestive heart failure) Qualifiers: Heart failure type: systolic Heart failure chronicity: acute on chronic Qualified Code(s): I50.23 - Acute on chronic systolic (congestive) heart failure (4) Hypertension Qualifiers: Hypertension type: essential hypertension Qualified Code(s): I10 - Essential (primary) hypertension
[2018-07-08] MEDS: Aspirin Enteric Coated 81 MG Tablet PO SCH (13:14)
[2018-07-08] MEDS: Furosemide 20 MG/2 ML VIAL IVP SCH (16:44)
--- NOTE | 2018-07-08 23:45 | Nephrology Consult Note ---
Date of Encounter: 07/08/18 Time of Encounter: 18:00 Assessment and Plan (1) Elevated serum creatinine Current Visit: Yes Status: Acute Unclear if ZBIGNIEW vs CKD Will obtain US of kidney Will check Urine for UA, urea, sodium and protein Will hold diuretics for now UOP noted at 2675cc in the past 24hrs (2) Atrial fibrillation with RVR Current Visit: Yes Status: Acute per cardio (3) CHF (congestive heart failure) Current Visit: Yes Status: Acute Continue fluid restriction Continue strict I/Os Will discuss pro/cons of LHC given renal dysfxn with patient Qualifiers: Heart failure type: systolic Heart failure chronicity: acute Qualified Code(s): I50.21 - Acute systolic (congestive) heart failure History of Present Illness - Reason for Consult Consult date: 07/08/18 Acute Kidney Injury Requesting physician: Diana Bradshaw - History of Present Illness 52 y o male with no known PMH as pt has not seen a doctor in years admitted for progressive dyspnea of sveral months duration. He wsa noted in Afib and treatme nt was started for CHF with iv lasix. Echo showed EF of 30-35%. Renal consulted for elevated SCr at 2.17, baseline SCr unkbonw as pt has not had labs in the recent past. Pt denied any prior history of renal disease. Cardiology also consulted for cardiac evaluation with LHC planned once optimized. Past Med Surg Social Fam HX - Past Medical History Medical history: hypertension Psychiatric history: no psych history - Past Surgical History Surgical History: no surgical history - Social History Smoking Status: Current every day smoker Packs per day: 1 pack per week Smokeless Tobacco Status: No Alcohol use: rarely Drug use: none - Family History Father Living Status: Hx Family Cardiac Disorders: Yes (Had AFIB) Hx Family Respiratory Disorders: Yes (absess outside of lung) Hx Family Cancer: No Hx Family GI Disorders: Yes (lost part of stomach due to ulcers) Hx Family Genitourinary Disorders: No Hx Family Endocrine Disorder: No Hx Family Musculoskeletal Disorders: No Hx Family Neuromuscular Disorders: No Hx Family Neurologic Disorders: No Hx Family HEENT Disorders: Yes (cataracts) Hx Family Autoimmune Disorders: No Hx Family Reproductive Disorders: No Hx Family Psychosocial Disorders: No Hx Family Medical Disorders: No Mother Living Status: Hx Family Endocrine Disorder: Yes (thyroid problem) Medications and Allergies Multivitamin [One Daily] 1 tab PO DAILY 07/08/18 [History] Ubidecarenone [Co Q-10] 400 mg PO DAILY 07/08/18 [History] Allergy/AdvReac Type Severity Reaction Status Date / Time No Known Allergies Allergy Verified 07/07/18 02:25 Review of Systems All Systems review (narrative): The rest of the systems are negative Constitutional: fatigue (denies) Cardiovascular: chest pain (denies), leg edema (admits) Respiratory: dyspnea (admits) Exam - Vital Signs Vital signs: Initial Vital Signs Temp Pulse Resp BP Pulse Ox 98.7 F 62 20 185/126 97 07/07/18 02:19 07/07/18 02:19 07/07/18 02:19 07/07/18 02:19 07/07/18 02:19 Vital Signs - Last 8 Hours Temp Pulse Resp BP Pulse Ox 07/08/18 23:24 99.0 F 102 16 178/125 95 07/08/18 21:28 132/98 07/08/18 19:50 98.5 F 105 16 141/102 94 Intake and Output 07/08/18 07/08/18 07/08/18 07:59 15:59 23:59 Intake Total 137.7 / 137.7 164.5 / 164.5 240 / 240 Output Total 425 / 425 1650 / 1650 950 / 950 Balance -287.3 / -287.3 -1485.5 / -1485.5 -710 / -710 Intake: IV Fluids 137.7 / 137.7 164.5 / 164.5 Heparin 25,000 UNIT/250 ML D5W 137.7 / 137.7 164.5 / 164.5 25,000 unit In 250 ml @ 5.5 UNIT/KG/HR 9.874 mls/hr IVC . Q24H [facility] Rx#:[id number] Oral 240 / 240 Output: Urine 425 / 425 1650 / 1650 950 / 950 Other: Meal Dinner Percent of Meal Consumed 100% Blood Glucose* 85 95 Results - Lab Results 07/09/18 05:44 07/11/18 06:30 Most recent lab results Calcium 9.6 mg/dL (8.6-10.3) 07/08/18 05:52 Magnesium 2.2 mg/dL (1.6-2.6) 07/08/18 05:52 Consult Discharge Plan - Plan Referrals: [facility] [Outside] NONE,PCP [Primary Care Provider] -
[2018-07-09] MEDS: Heparin 25,000 UNIT/250 ML D5W 25,000 UNIT/250 ML IV.SOLN IVC SCH ×2 (05:33→21:28)
[2018-07-09 06:03] LABS: Basophils % 0.9 %; Eosinophils % 2.9 %; Hematocrit 41.7 % (37.5-50.1); Hemoglobin 13.1 g/dL (12.9-16.9); Immature Granulocytes % 0.6 % (0-4); Lymphocytes % 28.7 %; Mean Corpuscular HGB Conc 31.4 g/dL (31.6-35.5); Mean Corpuscular Hemoglobin 28.9 pg (28.0-33.3); Mean Corpuscular Volume 91.9 fL (83.0-100.0); Mean Platelet Volume 9.7 fL (9.4-12.4); Monocytes % 10.7 %; Platelet Count 249 K/mcL (140-400); Red Blood Count 4.54 M/mcL (4.19-5.50); Red Cell Distribution Width 16.7 % (11.5-14.5); Segmented Neutrophils % 56.2 %
[2018-07-09 06:04] LABS: Basophils # 0.1 K/mcL (0.0-0.2); Eosinophils # 0.2 K/mcL (0.0-0.6); Monocytes # 0.7 K/mcL (0.0-1.3); Neutrophils # 3.9 K/mcL (1.6-8.9)
[2018-07-09 06:22] LABS: Calcium 9.6 mg/dL (8.6-10.3)
--- NOTE | 2018-07-09 07:32 | Cardiology Progress Note ---
Date of Encounter: 07/09/18 Time of Encounter: 07:30 Assessment and Plan (1) CHF (congestive heart failure) Current Visit: Yes Status: Acute Per Cardiology: Presented with CHF symptoms. Chest x-ray showed cardiomegaly with edema. EF on echo 30-35%. BNP 1300s. On IV Lasix 20 mg twice a day. Patient reports baseline weight about 360 pounds. Current net I&O -5145ml. On strict I&O, daily weight, 1.5 L fluid restriction. On BB, no ACEI/ARB for now d/t ZBIGNIEW vs CKD. Will eval for C during stay. Qualifiers: Heart failure type: systolic Heart failure chronicity: acute on chronic Qualified Code(s): I50.23 - Acute on chronic systolic (congestive) heart failure (2) Elevated troponin Current Visit: Yes Status: Acute Per Cardiology: Troponins flat and adynamic of 0.18, 0.17, 0.14, and 0.16. Chest pain-free. Suspect demand ischemia in the setting of CHF, ZBIGNIEW vs CKD, A. fib with RVR, however non-STEMI cannot be excluded. Plan for left heart catheterization during this hospital stay. On Hep gtt. asa, statin, BB. (3) Atrial fibrillation Current Visit: Yes Status: Chronic Per Cardiology: ECG showed A. fib in the 130s. Currently A. fib in the 90s to 100s on telemetry. Cardizem drip now off-- recommend avoiding calcium channel gurmeet with EF of 30-35%. Continue with rate control strategy for now; will titrate beta gurmeet. Regarding long-term anticoagulation, [id number] = at least a 2 (HTN, CHF). Continue heparin drip for now. We will need to address long-term anticoagulation during hospital course. Qualifiers: Atrial fibrillation type: persistent Qualified Code(s): I48.1 - Persistent atrial fibrillation (4) CKD (chronic kidney disease) stage 3, GFR 30-59 ml/min Current Visit: Yes Status: Acute Per Cardiology: ZBIGNIEW vs CKD. Nephrology following. Discussion w patient/family: The assessment and plan as outlined above was discussed with the patient and/or family members who expressed understanding and agreement. All questions were answered. Thank you for involving us in the care of your patient. Please call with any questions. Subjective Principal diagnosis: CHF, Afib, CMP Interval history: Reports SOB has improved. No CP, no palps. Objective Vital Signs, Last 4 Hours Temp Pulse Resp BP Pulse Ox 07/09/18 07:08 98.5 F 65 16 151/96 95 07/09/18 04:20 155/124 General: Conversant, No Apparent Distress HEENT: Atraumatic, Normocephaly, Mucus Membranes Moist Neck: No JVD, Normal carotid pulses Cardiac: No Murmur, Other (Irregularly irregular) Lungs: Normal Breath Sounds, No Wheeze, Rales, Rhonchi Neuro: Alert and responsive, No focal deficits noted Abdomen: Soft, Non-Tender Skin: No rashes noted on visualized skin Musculoskeletal: No Chest Wall Tenderness Extremities: No Clubbing, No Cyanosis, Normal Pulses, Other (+3 pitting edema) Results 07/09/18 05:44 07/09/18 05:44 Lab Results Laboratory Tests 07/07/18 07/09/18 07/09/18 03:55 05:44 05:44 Hgb 13.1 Hct 41.7 Creatinine 2.34 H Est GFR (Non-Af Amer) 29 L Troponin I 0.18 H* Intake & Output 07/06/18 07/07/18 07/08/18 07/09/18 23:59 23:59 23:59 23:59 Intake Total 537.8 / 537.8 542.2 / 542.2 450 / 450 Output Total 2675 / 2675 3025 / 3025 975 / 975 Balance -2137.2 / -2137.2 -2482.8 / -2482.8 -525 / -525 Weight 179.532 kg 180.2 kg Active Medications Al Hydrox/Mg Hydrox/Simethicone (Maalox) 15 ml PO Q6HR PRN PRN Reason: Dyspepsia Stop: 01/06/19 08:02 Aspirin (Aspirin Ec) 81 mg PO DAILY [facility] Stop: 01/07/19 11:01 Last Admin: 07/08/18 13:14 Dose: 81 mg Atorvastatin Calcium (Lipitor) 20 mg PO HS [facility] Stop: 01/07/19 21:01 Last Admin: 07/08/18 20:48 Dose: 20 mg Carvedilol (Coreg) 6.25 mg PO BIDWM [facility]; Protocol Stop: 01/07/19 17:01 Last Admin: 07/08/18 16:44 Dose: 6.25 mg Furosemide (Lasix) 20 mg IVP BIDDIURETIC [facility] Stop: 01/07/19 17:01 Last Admin: 07/08/18 16:44 Dose: 20 mg Heparin Sodium (Porcine) (Heparin) 4,000 unit IVP Q6HR PRN PRN Reason: SEE COMMENTS Stop: 01/06/19 06:17 Last Admin: 07/07/18 16:42 Dose: 4,000 unit Heparin Sodium (Porcine) (Heparin) 2,000 unit IVP Q6H PRN PRN Reason: SEE COMMENTS Stop: 01/06/19 06:17 Heparin Sodium/Dextrose (Heparin 25,000 Unit/250 Ml D5w) 25,000 unit in 250 mls @ 9.874 mls/hr IVC .Q24H [facility]; Protocol Stop: 01/06/19 06:31 Last Admin: 07/09/18 05:33 Dose: 9.52 unit/kg/hr, 17.1 mls/hr Magnesium Hydroxide (Milk Of Magnesia Conc) 10 ml PO DAILY PRN PRN Reason: Constipation Stop: 01/06/19 08:02 Metoprolol Tartrate (Lopressor) 5 mg IVP Q6HR PRN PRN Reason: Blood Pressure - High Stop: 01/07/19 15:31 Naloxone HCl (Narcan) 0.4 mg IVP Q2M PRN PRN Reason: SEE COMMENTS Stop: 01/06/19 08:02 Ondansetron HCl (Zofran) 4 mg IVP Q8HR PRN PRN Reason: Nausea And Vomiting Stop: 01/06/19 08:02 - Imaging and Cardiology Echo: report reviewed Consult Discharge Plan - Plan Referrals: [facility] [Outside] NONE,PCP [Primary Care Provider] -
[2018-07-09] MEDS: Aspirin Enteric Coated 81 MG Tablet PO SCH (08:31)
[2018-07-09] MEDS: Furosemide 20 MG/2 ML VIAL IVP SCH ×2 (08:32→17:22)
--- NOTE | 2018-07-09 14:36 | Internal Med Progress Note ---
<Sidney Hannah - Last Filed: 07/09/18 15:01> Hospitalist Progress Note - Encounter Date of Encounter: 07/09/18 Time of Encounter: 11:05 - Subjective Interval History: Patient was seen and examined at bedside this morning. He states that overall he is feeling very well with near resolution of the shortness of breath. He s till is experiencing some lower extremity swelling but this is improved as well. Continues to deny any symptoms of fevers, chills, chest pain. No acute events overnight. - Exam Vitals: Temp Pulse Resp BP Pulse Ox 98.0 F 89 16 147/98 92 07/09/18 14:03 07/09/18 14:03 07/09/18 14:03 07/09/18 14:03 07/09/18 14:03 Exam: Gen.: Vitals noted. No acute distress. AAOx3, resting comfortably in bed. Morbidly obese HEENT: PERRL/EOMI, oropharynx clear, Normocephalic, atraumatic, MMM. No JVD Cardiac: Irregularly irregular rhythm, rate controlled, no murmur, +S1/S2, 2+ BLE edema, right greater than left Pulmonary: CTA bilaterally, no wheezes, rales or rhonchi, equal chest expansion, unlabored breathing Abdomen: soft, nontender, BS noted, no guarding, no palpable HSM Skin: warm and dry, no visible lesions. MSK: ROM intact, no joint swelling noted, gait no assessed while in bed. Non tender calf or clubbing Neuro: A&Ox3, moves all extremities, no focal deficits, sensation intact Psych: Appropriate mood and behavior, AOx3 - Assessment and Plan (1) CHF (congestive heart failure) Current Visit: Yes Status: Acute Assessment and Plan: - Acute onset congestive heart failure, no previous known history - Presented with acute onset shortness of breath and swelling - Echocardiogram obtained at this visit shows ejection fraction of 30-35% with severe LVH and indeterminant diastolic dysfunction - Cardiology has been consulted, appreciate recommendations - I/Os of -5.6L since admission - Etiology is likely CAD which is never been worked up Plan - We will continue to diuresis gently however patient does have kidney disease which is unclear if acute or chronic - Lasix 20 mg IV twice a day for now - Have consulted nephrology for further management of kidney function, workup pending - Cardiology recommends ischemic workup once patient has been further diuresed - Fluid restriction diet. Strict I/Os (2) Atrial fibrillation Current Visit: Yes Status: Chronic Assessment and Plan: - Pt with hx of one year of symptoms. Was in rapid atrial fibrillation on admission - No reported history however he does have significant family history - Heparin drip started. - Echocardiogram shows biatrial enlargement - Patient taken off Cardizem drip due to systolic heart failure. Currently tolerating Coreg at 12.5 mg twice a day - CHADVASC 2, will likely need warfarin at discharge - Rate currently controlled. Pt has limited finances which will affect PO medications at discharge. Social work following (3) Morbid obesity with BMI of 45.0-49.9, adult Current Visit: Yes Status: Chronic Assessment and Plan: Chronic issue. Recommend outpatient dietary and exercise changes (4) Demand ischemia Current Visit: Yes Status: Acute Assessment and Plan: Pt has mild elevation of troponin on admission Troponin peak at 0.18, trended and adynamic Cardiology following, heparin drip running Suspect demand secondary to congestive heart failure exacerbation, atrial fibrillation with rapid ventricular response (5) CKD (chronic kidney disease) stage 3, GFR 30-59 ml/min Current Visit: Yes Status: Acute Assessment and Plan: Pt has elevated creatinine. No baseline in computer. Unclear if ZBIGNIEW vs CKD Continue cautious diuresis and rate control. BUNs/creatinine of 32/2.34 which is mildly worse from presentation with a c reatinine of 2.02 after gentle diuresis Nephrology has been consult, appreciate recommendations. Workup including urine studies, retroperitoneal ultrasound pending Will continue to monitor closely. (6) Hypertension Current Visit: Yes Status: Chronic Assessment and Plan: Pt has hx of hypertension for at least 3 years and is on no meds. Coreg added and increased 12.5 mg twice a day. No JOJO or ARB due to renal function No hydralazine to prevent reflex tachycardia. Has when necessary metoprolol Better controlled today 147/98- we will continue monitor current regimen - Time Spent with Patient Total time spent is greater than 50% in coordination of care (as documented) at patient's floor/unit and/or counseling patient: Internal Medicine: Result - Labs CBC & Chem 7: 07/09/18 05:44 07/09/18 05:44 Labs: Short CBC 07/09/18 Range/Units 05:44 WBC 6.9 (4.3-11.1) K/mcL Hgb 13.1 (12.9-16.9) g/dL Hct 41.7 (37.5-50.1) % Plt Count 249 (140-400) K/mcL Neutrophils # 3.9 (1.6-8.9) K/mcL BMP 07/09/18 05:44 Sodium 145 Potassium 4.0 Chloride 103 Carbon Dioxide 33 H BUN 32 H Creatinine 2.34 H Glucose 118 H Calcium 9.6 - ABG Interpretation ABG results: PT/INR, D-dimer PT 13.0 Seconds (9.4-12.1) H 07/07/18 07:07 Consult Discharge Plan - Plan Referrals: [facility] [Outside] NONE,PCP [Primary Care Provider] - <Ney Alvarez - Last Filed: 07/09/18 16:08> Hospitalist Progress Note - Encounter Date of Encounter: 07/09/18 - Exam Vitals: Temp Pulse Resp BP Pulse Ox 98.0 F 89 16 147/98 92 07/09/18 14:03 07/09/18 14:03 07/09/18 14:03 07/09/18 14:03 07/09/18 14:03 - Assessment and Plan (1) CHF (congestive heart failure) Current Visit: Yes Status: Acute (2) Atrial fibrillation Current Visit: Yes Status: Chronic (3) Morbid obesity with BMI of 45.0-49.9, adult Current Visit: Yes Status: Chronic (4) Demand ischemia Current Visit: Yes Status: Acute (5) CKD (chronic kidney disease) stage 3, GFR 30-59 ml/min Current Visit: Yes Status: Suspected (6) Hypertension Current Visit: Yes Status: Chronic - Time Spent with Patient Total time spent is greater than 50% in coordination of care (as documented) at patient's floor/unit and/or counseling patient: Internal Medicine: Result - Labs CBC & Chem 7: 07/09/18 05:44 07/09/18 05:44 Labs: Short CBC 07/09/18 Range/Units 05:44 WBC 6.9 (4.3-11.1) K/mcL Hgb 13.1 (12.9-16.9) g/dL Hct 41.7 (37.5-50.1) % Plt Count 249 (140-400) K/mcL Neutrophils # 3.9 (1.6-8.9) K/mcL BMP 07/09/18 05:44 Sodium 145 Potassium 4.0 Chloride 103 Carbon Dioxide 33 H BUN 32 H Creatinine 2.34 H Glucose 118 H Calcium 9.6 - ABG Interpretation ABG results: PT/INR, D-dimer PT 13.0 Seconds (9.4-12.1) H 07/07/18 07:07 - Attending Attestation I examined this patient and my medical decision-making was reviewed with the Resident Physician on 07/09/18. I agree with the documented findings, disposition and treatment plan as described except to the extent set forth below. Mr Potter is currently admitted for acute exac CHF and a fib. He remains moderate to high risk due to potential for worsening clinical status. Mr Potter is feeling OK. He continues to diurese. He denies pain. No fever or chills. Waiting renal ultrasound. Exam alert Comfortable Mucus membranes dry Heart irrg - not tachy Lungs clear at this time Abd soft Less edema I/P 1. Acute exac chr systolic CHF - continues to diurese as able. Will need ischemic eval. 2. CKD - creatinine around 2. Suspect this is chronic. US pending 3. A fib - rate better controlled with Coreg 4. Morbid obesity Further diagnoses and plan as above. <Sidney Hannah - Last Filed: 07/09/18 15:01> (1) CHF (congestive heart failure) Qualifiers: Heart failure type: systolic Heart failure chronicity: acute Qualified Code(s): I50.21 - Acute systolic (congestive) heart failure (2) Atrial fibrillation Qualifiers: Atrial fibrillation type: persistent Qualified Code(s): I48.1 - Persistent atrial fibrillation (6) Hypertension Qualifiers: Hypertension type: essential hypertension Qualified Code(s): I10 - Essential (primary) hypertension <Ney Alvarez - Last Filed: 07/09/18 16:08> (1) CHF (congestive heart failure) Qualifiers: Heart failure type: systolic Heart failure chronicity: acute Qualified Code(s): I50.21 - Acute systolic (congestive) heart failure (2) Atrial fibrillation Qualifiers: Atrial fibrillation type: persistent Qualified Code(s): I48.1 - Persistent atrial fibrillation (6) Hypertension Qualifiers: Hypertension type: essential hypertension Qualified Code(s): I10 - Essential (primary) hypertension
[2018-07-09 16:02] LABS: Bilirubin,Urine Negative (Negative); Blood,Urine Negative (Negative); Clarity,Urine Clear (Clear); Color,Urine Yellow (Yellow); Glucose,Urine (UA) Normal (Normal); Ketones,Urine Negative (Negative); Leukocyte Esterase,Urine Negative (Negative); Nitrite,Urine Negative (Negative); PH,Urine 5.5 pH Units (5.0-8.0); Protein,Urine 30 mg/dL (Neg-Trace); Specific Gravity,Urine 1.023 (1.010-1.025); Urobilinogen,Urine Normal (Normal)
[2018-07-09 16:05] LABS: Bacteria,Urine None Seen per hpf (None-Few); Hyaline Casts,Urine None Seen per lpf (None-Few); RBC,Urine 0-3 per hpf (0-3); Squamous Epithelial Cell,Urine Few per lpf (None-Few); WBC,Urine 0-3 per hpf (0-3)
[2018-07-09 16:10] LABS: Sodium, Urine 41.6 mEq/L
[2018-07-09] MEDS: *HR* Metoprolol 5 MG/5 ML VIAL IVP PRN (20:34)
--- NOTE | 2018-07-09 23:48 | Nephrology Progress Note ---
Date of Encounter: 07/09/18 Time of Encounter: 17:00 - Assessment and Plan (1) Elevated serum creatinine Current Visit: Yes Status: Acute SCr slightly worse at 2.34, GFR 29, will monitor for now UOP great US of kidney pending Urine studies pending Discussed at length pros/cons of [facility]. Discussed prophylasix with mucomyst, ivf if tolerated etc (2) Atrial fibrillation with RVR Current Visit: Yes Status: Acute per cardio (3) CHF (congestive heart failure) Current Visit: Yes Status: Acute Continue strict I/Os Continue fluid restriction Will use diuretics intermittently Qualifiers: Heart failure type: systolic Heart failure chronicity: acute Qualified Code(s): I50.21 - Acute systolic (congestive) heart failure Subjective Principal diagnosis: CHF, Afib, CMP Interval history: Pt seen and examined with at bedside with no complaints, feels better with slightly less LE edema. UOP noted over 3 liters in the past 24hrs Objective - Vital Signs Vital signs: Vital Signs Temp Pulse Resp BP Pulse Ox 07/09/18 20:25 147/113 07/09/18 19:39 97.9 F 93 16 95 07/09/18 14:03 98.0 F 89 16 147/98 92 07/09/18 10:18 98.0 F 87 14 149/85 92 07/09/18 07:08 98.5 F 65 16 151/96 95 07/09/18 04:20 155/124 07/09/18 02:32 98.2 F 95 20 156/110 95 07/09/18 01:36 100 158/125 Intake and Output 07/09/18 07/09/18 07/09/18 07:59 15:59 23:59 Intake Total 450 / 450 174 / 174 396 / 396 Output Total 975 / 975 1000 / 1000 275 / 275 Balance -525 / -525 -826 / -826 121 / 121 Intake: IV Fluids 250 / 250 54 / 54 196 / 196 Heparin 25,000 UNIT/250 ML D5W 250 / 250 54 / 54 196 / 196 25,000 unit In 250 ml @ 5.5 UNIT/KG/HR 9.874 mls/hr IVC . Q24H [facility] Rx#:[id number] Oral 200 / 200 120 / 120 200 / 200 Output: Urine 975 / 975 1000 / 1000 275 / 275 Other: Meal Lunch Dinner Percent of Meal Consumed 100% 100% # Bowel Movements 0 0 Weight 180.2 kg Patient Weight 07/09/18 23:59 Weight 180.2 kg - General Appearance General appearance: Present: well-developed, well-nourished, obese EENT: Present: ATNC, mucous membranes moist Neck: Present: no JVD, supple Additional Comments: good areation ant bilat with slight decrease BS Cardiology: Present: edema (LE bilat), normal S1, normal S2 Gastrointestinal: Present: no tenderness, no guarding, obese Integumentary: Present: warm and dry Neurologic: Present: no focal deficit Musculoskeletal: Present: no deformities Psychiatric: Present: mood/affect appropriate, cooperative - Lab 07/09/18 05:44 07/11/18 06:30 Most recent lab results Calcium 9.6 mg/dL (8.6-10.3) 07/09/18 05:44 Magnesium 2.2 mg/dL (1.6-2.6) 07/08/18 05:52 Urine Creatinine 160 mg/dL 07/09/18 15:41 Urine Sodium 41.6 mEq/L 07/09/18 15:41 Consult Discharge Plan - Plan Referrals: [facility] [Outside] NONE,PCP [Primary Care Provider] -
[2018-07-10] MEDS: *HR* Metoprolol 5 MG/5 ML VIAL IVP PRN (05:17)
[2018-07-10 06:02] LABS: Calcium 9.3 mg/dL (8.6-10.3); Potassium 3.3 mEq/L (3.5-5.1)
[2018-07-10] MEDS: Furosemide 20 MG/2 ML VIAL IVP SCH ×2 (07:46→16:44)
[2018-07-10] MEDS: Aspirin Enteric Coated 81 MG Tablet PO SCH (07:46)
--- NOTE | 2018-07-10 08:10 | Cardiology Progress Note ---
Date of Encounter: 07/10/18 Time of Encounter: 08:10 Assessment and Plan (1) CHF (congestive heart failure) Current Visit: Yes Status: Acute Per Cardiology: Presented with CHF symptoms. Chest x-ray showed cardiomegaly with edema. EF on echo 30-35%. BNP 1300s. On IV Lasix 20 mg twice a day. Patient reports baseline weight about 360 pounds. Current net I&O -6362ml and weight down 26 lbs according to records. On strict I&O, daily weight, 1.5 L fluid restriction. On BB, no ACEI/ARB for now d/t ZBIGNIEW vs CKD. Will eval for LHC during stay. Qualifiers: Heart failure type: systolic Heart failure chronicity: acute Qualified Code(s): I50.21 - Acute systolic (congestive) heart failure (2) Elevated troponin Current Visit: Yes Status: Acute Per Cardiology: Troponins flat and adynamic of 0.18, 0.17, 0.14, and 0.16. Chest pain-free. Suspect demand ischemia in the setting of CHF, ZBIGNIEW vs CKD, A. fib with RVR, however non-STEMI cannot be excluded. Plan for left heart catheterization during this hospital stay. On Hep gtt. asa, statin, BB. (3) Atrial fibrillation Current Visit: Yes Status: Chronic Per Cardiology: ECG showed A. fib in the 130s. Currently A. fib in the 80's-90's on telemetry. Cardizem drip now off-- recommend avoiding calcium channel gurmeet with EF of 30-35%. On BB; continue with rate control strategy for now. Regarding long-term anticoagulation, [id number] = at least a 2 (HTN, CHF). Continue heparin drip for now. We will need to address long-term anticoagulation during hospital course. Qualifiers: Atrial fibrillation type: persistent Qualified Code(s): I48.1 - Persistent atrial fibrillation (4) CKD (chronic kidney disease) stage 3, GFR 30-59 ml/min Current Visit: Yes Status: Suspected Per Cardiology: ZBIGNIEW vs CKD. Nephrology following. Discussion w patient/family: The assessment and plan as outlined above was discussed with the patient and/or family members who expressed understanding and agreement. All questions were answered. Thank you for involving us in the care of your patient. Please call with any questions. Subjective Principal diagnosis: CHF, Afib, CMP Interval history: Reports SOB has improved. No CP, no palps. Objective Vital Signs, Last 4 Hours Temp Pulse Resp BP Pulse Ox 07/10/18 07:55 98.0 F 95 16 165/119 96 07/10/18 04:50 98.2 F 93 18 151/102 95 General: Conversant, No Apparent Distress HEENT: Atraumatic, Normocephaly, Mucus Membranes Moist Neck: No JVD, Normal carotid pulses Cardiac: Reg Rate and Rhythm, Normal S1 and S2, No Murmur Lungs: Normal Breath Sounds, No Wheeze, Rales, Rhonchi Neuro: Alert and responsive, No focal deficits noted Abdomen: Soft, Non-Tender Skin: No rashes noted on visualized skin Musculoskeletal: No Chest Wall Tenderness Extremities: No Clubbing, No Cyanosis, Normal Pulses, Other (+2-3 pitting bilateral LE edema) Results 07/09/18 05:44 07/10/18 05:13 Lab Results Laboratory Tests 07/10/18 05:13 Potassium 3.3 L Creatinine 2.10 H Est GFR (Non-Af Amer) 33 L Active Medications Al Hydrox/Mg Hydrox/Simethicone (Maalox) 15 ml PO Q6HR PRN PRN Reason: Dyspepsia Stop: 01/06/19 08:02 Aspirin (Aspirin Ec) 81 mg PO DAILY [facility] Stop: 01/07/19 11:01 Last Admin: 07/10/18 07:46 Dose: 81 mg Atorvastatin Calcium (Lipitor) 20 mg PO HS [facility] Stop: 01/07/19 21:01 Last Admin: 07/09/18 20:34 Dose: 20 mg Carvedilol (Coreg) 12.5 mg PO BIDWM [facility]; Protocol Stop: 01/08/19 08:01 Last Admin: 07/10/18 07:46 Dose: 12.5 mg Furosemide (Lasix) 20 mg IVP BIDDIURETIC [facility] Stop: 01/07/19 17:01 Last Admin: 07/10/18 07:46 Dose: 20 mg Heparin Sodium (Porcine) (Heparin) 4,000 unit IVP Q6HR PRN PRN Reason: SEE COMMENTS Stop: 01/06/19 06:17 Last Admin: 07/07/18 16:42 Dose: 4,000 unit Heparin Sodium (Porcine) (Heparin) 2,000 unit IVP Q6H PRN PRN Reason: SEE COMMENTS Stop: 01/06/19 06:17 Heparin Sodium/Dextrose (Heparin 25,000 Unit/250 Ml D5w) 25,000 unit in 250 mls @ 9.874 mls/hr IVC .Q24H [facility]; Protocol Stop: 01/06/19 06:31 Last Titration: 07/10/18 07:47 Dose: 9.52 unit/kg/hr, 17.1 mls/hr Magnesium Hydroxide (Milk Of Magnesia Conc) 10 ml PO DAILY PRN PRN Reason: Constipation Stop: 01/06/19 08:02 Metoprolol Tartrate (Lopressor) 5 mg IVP Q6HR PRN PRN Reason: Blood Pressure - High Stop: 01/07/19 15:31 Last Admin: 07/10/18 05:17 Dose: 5 mg Naloxone HCl (Narcan) 0.4 mg IVP Q2M PRN PRN Reason: SEE COMMENTS Stop: 01/06/19 08:02 Ondansetron HCl (Zofran) 4 mg IVP Q8HR PRN PRN Reason: Nausea And Vomiting Stop: 01/06/19 08:02 - Imaging and Cardiology Echo: report reviewed Cardiac cath: pending Consult Discharge Plan - Plan Referrals: [facility] [Outside] NONE,PCP [Primary Care Provider] -
--- NOTE | 2018-07-10 10:14 | Internal Med Progress Note ---
<Sidney Hannah - Last Filed: 07/10/18 12:32> Hospitalist Progress Note - Encounter Date of Encounter: 07/10/18 Time of Encounter: 10:05 - Subjective Interval History: Patient seen and examined at bedside this morning. He states that he continues to feel better and better each day. His breathing is near baseline and his s welling has improved. He still does have some bilateral lower extremity edema. No other concerns at this time - Exam Vitals: Temp Pulse Resp BP Pulse Ox 98.0 F 95 16 165/119 96 07/10/18 07:55 07/10/18 07:55 07/10/18 07:55 07/10/18 07:55 07/10/18 07:55 Exam: Gen.: Vitals noted. No acute distress. AAOx3, resting comfortably in bed. Morbidly obese HEENT: PERRL/EOMI, oropharynx clear, Normocephalic, atraumatic, MMM. No JVD Cardiac: Irregularly irregular rhythm, rate controlled, no murmur, +S1/S2, 2+ BLE edema, right greater than left Pulmonary: CTA bilaterally, no wheezes, rales or rhonchi, equal chest expansion, unlabored breathing Abdomen: soft, nontender, BS noted, no guarding, no palpable HSM Skin: warm and dry, no visible lesions. MSK: ROM intact, no joint swelling noted, gait no assessed while in bed. Non tender calf or clubbing Neuro: A&Ox3, moves all extremities, no focal deficits, sensation intact Psych: Appropriate mood and behavior, AOx3 - Assessment and Plan (1) CHF (congestive heart failure) Current Visit: Yes Status: Acute Assessment and Plan: - Acute onset congestive heart failure, no previous known history - Presented with acute onset shortness of breath and swelling - Echocardiogram obtained at this visit shows ejection fraction of 30-35% with severe LVH and indeterminant diastolic dysfunction - Cardiology has been consulted, appreciate recommendations - I/Os of -7.5 L since admission - Etiology is likely CAD which is never been worked up Plan - We will continue to diuresis gently however patient does have kidney disease which is unclear if acute or chronic - Lasix 20 mg IV twice a day for now - Have consulted nephrology for further management of kidney function, workup pending - Cardiology recommends ischemic workup once patient has been further diuresed - Fluid restriction diet. Strict I/Os (2) Atrial fibrillation Current Visit: Yes Status: Chronic Assessment and Plan: - Pt with hx of one year of symptoms. Was in rapid atrial fibrillation on admission - No reported history however he does have significant family history - Heparin drip started. - Echocardiogram shows biatrial enlargement - Patient taken off Cardizem drip due to systolic heart failure. Currently tolerating Coreg - CHADVASC 2, will likely need warfarin at discharge - Rate currently controlled. Plan - We will increase Coreg to 25 mg twice a day to assist in blood pressure control - Continue heparin drip with probable transition to warfarin pending cardiology recommendations and further workup Pt has limited finances which will affect PO medications at discharge. Social work following (3) Morbid obesity with BMI of 45.0-49.9, adult Current Visit: Yes Status: Chronic Assessment and Plan: Chronic issue. Recommend outpatient dietary and exercise changes (4) Demand ischemia Current Visit: Yes Status: Acute Assessment and Plan: Pt has mild elevation of troponin on admission Troponin peak at 0.18, trended and adynamic Cardiology following, heparin drip running Suspect demand secondary to congestive heart failure exacerbation, atrial fibrillation with rapid ventricular response (5) CKD (chronic kidney disease) stage 3, GFR 30-59 ml/min Current Visit: Yes Status: Suspected Assessment and Plan: Pt has elevated creatinine. No baseline in computer. Unclear if ZBIGNIEW vs CKD Continue cautious diuresis and rate control. BUNs/creatinine of 31/2.10 which is mildly improved from creatinine of 2.34 yesterday Urine studies suggest an intrinsic etiology, high suspicion for CKD Nephrology has been consult, appreciate recommendations. retroperitoneal ultrasound pending Will continue to monitor closely. (6) Hypertension Current Visit: Yes Status: Chronic Assessment and Plan: Pt has hx of hypertension for at least 3 years and is on no meds. Coreg added and increased 25 mg twice a day. No JOJO or ARB due to renal function No hydralazine to prevent reflex tachycardia. Has when necessary metoprolol Better controlled today 126/87- we will continue monitor current regimen DVT Prophylaxis: heparin drip - Time Spent with Patient Total time spent is greater than 50% in coordination of care (as documented) at patient's floor/unit and/or counseling patient: Internal Medicine: Result - Labs CBC & Chem 7: 07/09/18 05:44 07/10/18 05:13 Labs: BMP 07/10/18 05:13 Sodium 143 Potassium 3.3 L Chloride 104 Carbon Dioxide 30 H BUN 31 H Creatinine 2.10 H Glucose 96 Calcium 9.3 Urine 07/09/18 Range/Units 15:41 Urine Color Yellow (Yellow) Urine Clarity Clear (Clear) Urine pH 5.5 (5.0-8.0) pH Units Ur Specific [place] 1.023 (1.010-1.025) Urine Protein 30 H (Neg-Trace) mg/dL Urine Glucose (UA) Normal (Normal) mg/dL - ABG Interpretation ABG results: PT/INR, D-dimer PT 13.0 Seconds (9.4-12.1) H 07/07/18 07:07 Consult Discharge Plan - Plan Referrals: [facility] [Outside] NONE,PCP [Primary Care Provider] - <Ney Alvarez - Last Filed: 07/10/18 17:55> Hospitalist Progress Note - Encounter Date of Encounter: 07/10/18 - Exam Vitals: Temp Pulse Resp BP Pulse Ox 98.2 F 88 16 145/98 94 07/10/18 14:51 07/10/18 14:51 07/10/18 14:51 07/10/18 14:51 07/10/18 14:51 - Assessment and Plan (1) CHF (congestive heart failure) Current Visit: Yes Status: Acute (2) Atrial fibrillation Current Visit: Yes Status: Chronic (3) Morbid obesity with BMI of 45.0-49.9, adult Current Visit: Yes Status: Chronic (4) Demand ischemia Current Visit: Yes Status: Acute (5) CKD (chronic kidney disease) stage 3, GFR 30-59 ml/min Current Visit: Yes Status: Suspected (6) Hypertension Current Visit: Yes Status: Chronic - Time Spent with Patient Total time spent is greater than 50% in coordination of care (as documented) at patient's floor/unit and/or counseling patient: Internal Medicine: Result - Labs CBC & Chem 7: 07/09/18 05:44 07/10/18 05:13 Labs: BMP 07/10/18 05:13 Sodium 143 Potassium 3.3 L Chloride 104 Carbon Dioxide 30 H BUN 31 H Creatinine 2.10 H Glucose 96 Calcium 9.3 - ABG Interpretation ABG results: PT/INR, D-dimer PT 13.0 Seconds (9.4-12.1) H 07/07/18 07:07 - Impressions Impressions Retroperitoneum Ultrasound 07/10/18 23:34 IMPRESSION: Left renal cyst, otherwise unremarkable study. No obstructive uropathy. D/ / 07/10/2018 13:06:17 Stephan Esqueda MD / mikael Interpreting Provider: Stephan Esqueda MD - Attending Attestation I examined this patient and my medical decision-making was reviewed with the Resident Physician on 07/10/18. I agree with the documented findings, disposition and treatment plan as described except to the extent set forth below. Mr Potter is currently admitted for acute exac CHF and a fib. He remains mode rate to high risk due to potential for worsening clinical status. Mr Potter is doing OK. He continues to diurese. No fever or chills. No CP. Exam Alert Comfortable Mucus membranes dry Heart irreg and not tachy No wheeze Abd soft Less edema I/P 1. Acute exac CHF systolic 2. Atrial fibrillation - rate controlled 3 HTN Further diagnoses and plan as above. <Sidney Hannah - Last Filed: 07/10/18 12:32> (1) CHF (congestive heart failure) Qualifiers: Heart failure type: systolic Heart failure chronicity: acute Qualified Code(s): I50.21 - Acute systolic (congestive) heart failure (2) Atrial fibrillation Qualifiers: Atrial fibrillation type: persistent Qualified Code(s): I48.1 - Persistent atrial fibrillation (6) Hypertension Qualifiers: Hypertension type: essential hypertension Qualified Code(s): I10 - Essential (primary) hypertension <Ney Alvarez - Last Filed: 07/10/18 17:55> (1) CHF (congestive heart failure) Qualifiers: Heart failure type: systolic Heart failure chronicity: acute Qualified Code(s): I50.21 - Acute systolic (congestive) heart failure (2) Atrial fibrillation Qualifiers: Atrial fibrillation type: persistent Qualified Code(s): I48.1 - Persistent atrial fibrillation (6) Hypertension Qualifiers: Hypertension type: essential hypertension Qualified Code(s): I10 - Essential (primary) hypertension
[2018-07-10] MEDS: Heparin 25,000 UNIT/250 ML D5W 25,000 UNIT/250 ML IV.SOLN IVC SCH (14:29)
--- NOTE | 2018-07-10 19:32 | Nephrology Progress Note ---
Date of Encounter: 07/10/18 Time of Encounter: 12:00 - Assessment and Plan (1) Elevated serum creatinine Current Visit: Yes Status: Acute SCr slightly better at 2.1, GFR 33, will monitor UOP remains good with diuretics US of kidney shows slight size asymmetry with other molina unremarkable with no signs of chronicity Urine studies show trace microalbuminuria only Discussed at length pros/cons of LHC. Discussed prophylasix with mucomyst, ivf if tolerated or at least hold am iv lasix etc (2) Atrial fibrillation with RVR Current Visit: Yes Status: Acute per cardio (3) CHF (congestive heart failure) Current Visit: Yes Status: Acute LHC delayed, continue mucomyst for now Will hold lasix when LHC to be done Qualifiers: Heart failure type: systolic Heart failure chronicity: acute Qualified Code(s): I50.21 - Acute systolic (congestive) heart failure Subjective Principal diagnosis: CHF, Afib, CMP Interval history: Pt seen and examined with at bedside with no complaints, feels better with slightly less LE edema. UOP noted over 2 liters in the past 24hrs Objective - Vital Signs Vital signs: Vital Signs Temp Pulse Resp BP Pulse Ox 07/10/18 14:51 98.2 F 88 16 145/98 94 07/10/18 10:27 97.8 F 82 16 126/87 91 07/10/18 07:55 98.0 F 95 16 165/119 96 07/10/18 04:50 98.2 F 93 18 151/102 95 07/09/18 20:25 147/113 07/09/18 19:39 97.9 F 93 16 95 Intake and Output 07/10/18 07/10/18 07/10/18 07:59 15:59 23:59 Intake Total 138 / 138 612 / 612 620 / 620 Output Total 650 / 650 1375 / 1375 Balance -512 / -512 -763 / -763 620 / 620 Intake: IV Fluids 138 / 138 112 / 112 Heparin 25,000 UNIT/250 ML D5W 138 / 138 112 / 112 25,000 unit In 250 ml @ 5.5 UNIT/KG/HR 9.874 mls/hr IVC . Q24H [facility] Rx#:[id number] Oral 500 / 500 620 / 620 Output: Urine 650 / 650 1375 / 1375 Other: Meal Lunch Dinner Percent of Meal Consumed 100% 100% # Bowel Movements 0 0 Weight 167.3 kg Patient Weight 07/10/18 23:59 Weight 167.3 kg - General Appearance General appearance: Present: well-developed, well-nourished, obese EENT: Present: ATNC, mucous membranes moist Neck: Present: supple Additional Comments: good areation with slight decreased bases bilat Cardiology: Present: edema, normal S1, normal S2 Gastrointestinal: Present: no tenderness, no guarding, obese Integumentary: Present: warm and dry Neurologic: Present: no focal deficit Musculoskeletal: Present: no deformities Psychiatric: Present: mood/affect appropriate, cooperative - Lab 07/09/18 05:44 07/11/18 06:30 Most recent lab results Calcium 9.3 mg/dL (8.6-10.3) 07/10/18 05:13 Magnesium 2.2 mg/dL (1.6-2.6) 07/08/18 05:52 Urine Creatinine 160 mg/dL 07/09/18 15:41 Urine Sodium 41.6 mEq/L 07/09/18 15:41 Consult Discharge Plan - Plan Referrals: [facility] [Outside] NONE,PCP [Primary Care Provider] -
[2018-07-10] MEDS: *HR* Acetylcysteine 20% 600 MG/3 ML ORAL SYRINGE PO SCH (21:07)
[2018-07-11] MEDS: Heparin 25,000 UNIT/250 ML D5W 25,000 UNIT/250 ML IV.SOLN IVC SCH ×2 (04:48→20:21)
[2018-07-11 07:10] LABS: Calcium 9.5 mg/dL (8.6-10.3); Potassium 3.5 mEq/L (3.5-5.1)
--- NOTE | 2018-07-11 08:33 | Cardiology Progress Note ---
Date of Encounter: 07/11/18 Time of Encounter: 08:30 Assessment and Plan (1) CHF (congestive heart failure) Current Visit: Yes Status: Acute Per Cardiology: Presented with CHF symptoms. Chest x-ray showed cardiomegaly with edema. EF on echo 30-35%. BNP 1300s. On IV Lasix 20 mg twice a day. Patient reports baseline weight about 360 pounds. Current net I&O -7474ml and weight down 26 lbs according to records. On strict I&O, daily weight, 1.5 L fluid restriction. On BB, no ACEI/ARB for now d/t suspected ZBIGNIEW. Qualifiers: Heart failure type: systolic Heart failure chronicity: acute Qualified Code(s): I50.21 - Acute systolic (congestive) heart failure (2) Elevated troponin Current Visit: Yes Status: Acute Per Cardiology: Troponins flat and adynamic of 0.18, 0.17, 0.14, and 0.16. Chest pain-free. Suspect demand ischemia in the setting of CHF, ZBIGNIEW vs CKD, A. fib with RVR, however non-STEMI cannot be excluded. Plan for [facility] possibly tomorrow-- will continue following with Nephrology. On Hep gtt., asa, statin, BB. (3) Atrial fibrillation Current Visit: Yes Status: Chronic Per Cardiology: ECG showed A. fib in the 130s. Avg HR past 12 hrs 81, afib. Cardizem drip now off-- recommend avoiding calcium channel gurmeet with EF of 30-35%. On BB; continue with rate control strategy for now. Regarding long-term anticoagulation, [id number] = at least a 2 (HTN, CHF). Continue heparin drip for now. We will need to address long-term anticoagulation during hospital course (after [facility]). Qualifiers: Atrial fibrillation type: persistent Qualified Code(s): I48.1 - Persistent atrial fibrillation (4) CKD (chronic kidney disease) stage 3, GFR 30-59 ml/min Current Visit: Yes Status: Suspected Per Cardiology: ZBIGNIEW vs CKD. Nephrology following-- appears to be ZBIGNIEW, recs to hold off on [facility] today. Discussion w patient/family: The assessment and plan as outlined above was discussed with the patient and/or family members who expressed understanding and agreement. All questions were answered. Thank you for involving us in the care of your patient. Please call with any questions. Subjective Principal diagnosis: CHF, Afib, CMP Interval history: Reports SOB has improved. No CP, no palps. Objective Vital Signs, Last 4 Hours Temp Pulse Resp BP Pulse Ox 07/11/18 04:37 97.6 F 84 16 120/83 90 General: Conversant, No Apparent Distress HEENT: Atraumatic, Normocephaly, Mucus Membranes Moist Neck: No JVD, Normal carotid pulses Cardiac: Reg Rate and Rhythm, Normal S1 and S2, No Murmur Lungs: Normal Breath Sounds, No Wheeze, Rales, Rhonchi Neuro: Alert and responsive, No focal deficits noted Abdomen: Soft, Non-Tender Skin: No rashes noted on visualized skin Musculoskeletal: No Chest Wall Tenderness Extremities: No Clubbing, No Cyanosis, Normal Pulses, Other (2+ pitting bilateral lower extremity edema) Results 07/09/18 05:44 07/11/18 06:30 Lab Results Laboratory Tests 07/11/18 06:30 Potassium 3.5 Creatinine 2.10 H Est GFR (Non-Af Amer) 33 L Impressions Retroperitoneum Ultrasound 07/10/18 23:34 IMPRESSION: Left renal cyst, otherwise unremarkable study. No obstructive uropathy. D/ /10/2018 13:06:17 Stephan Esqueda MD / mikael Interpreting Provider: Stephan Esqueda MD Active Medications Acetylcysteine (Acetylcysteine 20%) 600 mg PO BID [facility] Stop: 07/13/18 09:01 Last Admin: 07/10/18 21:07 Dose: 600 mg Al Hydrox/Mg Hydrox/Simethicone (Maalox) 15 ml PO Q6HR PRN PRN Reason: Dyspepsia Stop: 01/06/19 08:02 Aspirin (Aspirin Ec) 81 mg PO DAILY [facility] Stop: 01/07/19 11:01 Last Admin: 07/10/18 07:46 Dose: 81 mg Atorvastatin Calcium (Lipitor) 20 mg PO HS [facility] Stop: 01/07/19 21:01 Last Admin: 07/10/18 21:06 Dose: 20 mg Carvedilol (Coreg) 25 mg PO BIDWM [facility]; Protocol Stop: 01/09/19 17:01 Last Admin: 07/10/18 16:44 Dose: 25 mg Furosemide (Lasix) 20 mg IVP BID [facility] Stop: 01/10/19 09:01 Heparin Sodium (Porcine) (Heparin) 4,000 unit IVP Q6HR PRN PRN Reason: SEE COMMENTS Stop: 01/06/19 06:17 Last Admin: 07/07/18 16:42 Dose: 4,000 unit Heparin Sodium (Porcine) (Heparin) 2,000 unit IVP Q6H PRN PRN Reason: SEE COMMENTS Stop: 01/06/19 06:17 Heparin Sodium/Dextrose (Heparin 25,000 Unit/250 Ml D5w) 25,000 unit in 250 mls @ 9.874 mls/hr IVC .Q24H [facility]; Protocol Stop: 01/06/19 06:31 Last Admin: 07/11/18 04:48 Dose: 9.52 unit/kg/hr, 17.1 mls/hr Magnesium Hydroxide (Milk Of Magnesia Conc) 10 ml PO DAILY PRN PRN Reason: Constipation Stop: 01/06/19 08:02 Metoprolol Tartrate (Lopressor) 5 mg IVP Q6HR PRN PRN Reason: Blood Pressure - High Stop: 01/07/19 15:31 Last Admin: 07/10/18 05:17 Dose: 5 mg Naloxone HCl (Narcan) 0.4 mg IVP Q2M PRN PRN Reason: SEE COMMENTS Stop: 01/06/19 08:02 Ondansetron HCl (Zofran) 4 mg IVP Q8HR PRN PRN Reason: Nausea And Vomiting Stop: 01/06/19 08:02 - Imaging and Cardiology Echo: report reviewed Cardiac cath: pending Consult Discharge Plan - Plan Referrals: [facility] [Outside] NONE,PCP [Primary Care Provider] -
[2018-07-11] MEDS: Furosemide 20 MG/2 ML VIAL IVP SCH ×2 (09:42→20:19)
[2018-07-11] MEDS: Aspirin Enteric Coated 81 MG Tablet PO SCH (09:43)
[2018-07-11] MEDS: *HR* Acetylcysteine 20% 600 MG/3 ML ORAL SYRINGE PO SCH ×2 (09:43→20:19)
[2018-07-11 10:30] LABS: Total Volume 24 Hour,Urine 2.88 Liters (0.80-1.80)
--- NOTE | 2018-07-11 10:42 | Internal Med Progress Note ---
<Diana Bradshaw - Last Filed: 07/11/18 16:57> Hospitalist Progress Note - Encounter Date of Encounter: 07/11/18 Time of Encounter: 10:42 - Subjective Interval History: Patient denies shortness of breath. Reports pedal edema improving. He agrees to [facility] tomorrow. - Exam Vitals: Temp Pulse Resp BP Pulse Ox 97.6 F 84 16 120/83 90 07/11/18 04:37 07/11/18 04:37 07/11/18 04:37 07/11/18 04:37 07/11/18 04:37 Exam: Gen.: Vitals noted. No acute distress. AAOx3, resting comfortably in bed. Morbidly obese HEENT: PERRL/EOMI, oropharynx clear, Normocephalic, atraumatic, Cardiac: RRR +S1/S2, Extremity; 2+ B LE edema up to calves with improvement from Wednesday Pulmonary: CTA bilaterally, no wheezes, rales or rhonchi, equal chest expansion, unlabored breathing Abdomen: soft, nontender, BS noted, no guarding Skin: warm and dry, no visible lesions. MSK: ROM intact, no joint swelling noted, Neuro: A&Ox3, moves all extremities, no focal deficits, sensation intact Psych: Appropriate mood and behavior, AOx3 - Assessment and Plan (1) Atrial fibrillation with RVR Current Visit: Yes Status: Acute Assessment and Plan: New diagnosis A fib rate controlled for past 24 hrs on increased dose of cardizem - continue cardizem 25 mg bid - continue heparin - continue cardiac monitoring (2) Elevated troponin Current Visit: Yes Status: Acute Assessment and Plan: Down trended elevated troponin 0.18, 0.17, 0.14, and 0.16. No acute EKG chagnes DDx silent NSTEMI v demand ischemia due to CNF & A fib - cardiology consulted and plans for [facility] tomorrow (3) CHF (congestive heart failure) Current Visit: Yes Status: Acute Assessment and Plan: New diagnosis heart failure presented in exacerbation with fluid overload on admission with BNP > 1300 and Chest XR interstitial edema . Echo EF 30 % with severe LVH - continue IV lasix 20 mg BID - strict I/O- net cumulative near 8 L Cardiology and nephrology consulted - appreciate recommendations for [facility] tomorrow after second dose mucomyst (4) CKD (chronic kidney disease) stage 3, GFR 30-59 ml/min Current Visit: Yes Status: Suspected Assessment and Plan: ZBIGNIEW v CKD improving slowlt 2.1 from 2.34 with unknown baseline. Continue to have good UOP of 3 L yesterday - nephrology consulted and appreciate recommendation for gentle diaeresis & mycomist - avoid nephrotoxins - urine studies completed 07-10-18 Renal US showed left renal cysts but kidneys normal in size with out hydronephrosis (5) Hypertension Current Visit: Yes Status: Chronic Assessment and Plan: Untreated HTN that is better controlled today 120/83 to 136/90 - continue coreg - prn lopressor - avoid nephrotoxins such as JOJO or ARB - avoid hydralazine due to rebound HTN Discussed with patient need for outpatient follow up and establish PCP (6) Pre-diabetes Current Visit: Yes Status: Acute (7) Morbid obesity with BMI of 45.0-49.9, adult Current Visit: Yes Status: Chronic Assessment and Plan: Chronic -establish PCP outpatient (8) Uninsured Current Visit: Yes Status: Acute Assessment and Plan: Consider medication cost on discharge - Time Spent with Patient Total time spent is greater than 50% in coordination of care (as documented) at patient's floor/unit and/or counseling patient: Internal Medicine: Result - Labs CBC & Chem 7: 07/09/18 05:44 07/11/18 06:30 Labs: BMP 07/11/18 06:30 Sodium 144 Potassium 3.5 Chloride 105 Carbon Dioxide 30 H BUN 31 H Creatinine 2.10 H Glucose 101 Calcium 9.5 - ABG Interpretation ABG results: PT/INR, D-dimer PT 13.0 Seconds (9.4-12.1) H 07/07/18 07:07 - Impressions Impressions Retroperitoneum Ultrasound 07/10/18 23:34 IMPRESSION: Left renal cyst, otherwise unremarkable study. No obstructive uropathy. D/ : / 07/10/2018 13:06:17 Stephan Esqueda MD / mikael Interpreting Provider: Stephan Esqueda MD Consult Discharge Plan - Plan Referrals: [facility] [Outside] NONE,PCP [Primary Care Provider] - <Ney Alvarez - Last Filed: 07/11/18 18:49> Hospitalist Progress Note - Encounter Date of Encounter: 07/11/18 - Exam Vitals: Temp Pulse Resp BP Pulse Ox 97.2 F L 85 16 145/83 93 07/11/18 14:23 07/11/18 14:23 07/11/18 14:23 07/11/18 14:23 07/11/18 14:23 - Assessment and Plan (1) CHF (congestive heart failure) Current Visit: Yes Status: Acute (2) Atrial fibrillation Current Visit: Yes Status: Chronic (3) Morbid obesity with BMI of 45.0-49.9, adult Current Visit: Yes Status: Chronic (4) Demand ischemia Current Visit: Yes Status: Acute (5) CKD (chronic kidney disease) stage 3, GFR 30-59 ml/min Current Visit: Yes Status: Suspected (6) Hypertension Current Visit: Yes Status: Chronic - Time Spent with Patient Total time spent is greater than 50% in coordination of care (as documented) at patient's floor/unit and/or counseling patient: Internal Medicine: Result - Labs CBC & Chem 7: 07/09/18 05:44 07/11/18 06:30 Labs: BMP 07/11/18 06:30 Sodium 144 Potassium 3.5 Chloride 105 Carbon Dioxide 30 H BUN 31 H Creatinine 2.10 H Glucose 101 Calcium 9.5 - ABG Interpretation ABG results: PT/INR, D-dimer PT 13.0 Seconds (9.4-12.1) H 07/07/18 07:07 - Impressions Impressions Retroperitoneum Ultrasound 07/10/18 23:34 IMPRESSION: Left renal cyst, otherwise unremarkable study. No obstructive uropathy. D/ / 07/10/2018 13:06:17 Stephan Esqueda MD / mikael Interpreting Provider: Stephan Esqueda MD - Attending Attestation I examined this patient and my medical decision-making was reviewed with the Resident Physician on 07/11/18. I agree with the documented findings, disposition and treatment plan as described except to the extent set forth below. Mr Potter is currently admitted for acute exac CHF and a fib. He remains moderate to high risk due to potential for worsening clinical status. Mr Potter is resting at this time. No new issues. To have LHC tomorrow. No fever or chills. Exam alert Comfortable Mucus membranes dry Heart irreg and not tachy No wheeze abd soft Edema improving I/P 1. CHF - slowly improving. LHC tomorrow 2. A fib - rate controlled 3. HTN Further diagnoses and plan as above. <Diana Bradshaw - Last Filed: 07/11/18 16:57> (3) CHF (congestive heart failure) Qualifiers: Heart failure type: systolic Heart failure chronicity: acute Qualified Code(s): I50.21 - Acute systolic (congestive) heart failure (5) Hypertension Qualifiers: Hypertension type: essential hypertension Qualified Code(s): I10 - Essential (primary) hypertension <Ney Alvarez A - Last Filed: 07/11/18 18:49> (1) CHF (congestive heart failure) Qualifiers: Heart failure type: systolic Heart failure chronicity: acute Qualified Code(s): I50.21 - Acute systolic (congestive) heart failure (2) Atrial fibrillation Qualifiers: Atrial fibrillation type: persistent Qualified Code(s): I48.1 - Persistent atrial fibrillation (6) Hypertension Qualifiers: Hypertension type: essential hypertension Qualified Code(s): I10 - Essential (primary) hypertension
[2018-07-11 10:56] LABS: Protein/Creatinine Ratio,Urine 0.39 mg/mg (0.00-0.20)
--- NOTE | 2018-07-11 22:33 | Nephrology Progress Note ---
Date of Encounter: 07/11/18 Time of Encounter: 12:30 - Assessment and Plan (1) Elevated serum creatinine Current Visit: Yes Status: Acute SCr noted the same as yesterday at 2.1, GFR 33 Agree with holding LHC for another day Continue diuresis for now, UOP at 3325cc in the past 24hrs Urine showed trace proteinuria with US of kidney mostly unremarkable except for slight asymmetry (2) Atrial fibrillation with RVR Current Visit: Yes Status: Acute per cardio (3) CHF (congestive heart failure) Current Visit: Yes Status: Acute LHC delayed, continue mucomyst for now Will hold lasix when LHC to be done Qualifiers: Heart failure type: systolic Heart failure chronicity: acute Qualified Code(s): I50.21 - Acute systolic (congestive) heart failure Subjective Principal diagnosis: CHF, Afib, CMP Interval history: Pt seen and examined with at bedside with no complaints, continues to feel better. UOP noted over 3 liters in the past 24hrs. LHC delayed vy cardio for more optimization Objective - Vital Signs Vital signs: Vital Signs Temp Pulse Resp BP Pulse Ox 07/11/18 20:17 97.5 F L 70 15 146/96 95 07/11/18 14:23 97.2 F L 85 16 145/83 93 07/11/18 11:42 97.9 F 76 17 136/80 93 07/11/18 08:30 93 07/11/18 04:37 97.6 F 84 16 120/83 90 07/10/18 23:32 97.3 F L 85 15 147/89 95 Intake and Output 07/11/18 07/11/18 07/11/18 07:59 15:59 23:59 Intake Total 244 / 244 322.3 / 322.3 287.7 / 287.7 Output Total 650 / 650 1075 / 1075 Balance -406 / -406 -752.7 / -752.7 287.7 / 287.7 Intake: IV Fluids 244 / 244 82.3 / 82.3 167.7 / 167.7 Heparin 25,000 UNIT/250 ML D5W 244 / 244 82.3 / 82.3 167.7 / 167.7 25,000 unit In 250 ml @ 5.5 UNIT/KG/HR 9.874 mls/hr IVC . Q24H SMITHA Rx#:[id number] Oral 0 / 0 240 / 240 120 / 120 Output: Urine 650 / 650 1075 / 1075 Other: Meal Lunch Dinner Percent of Meal Consumed 100% 100% # Bowel Movements 0 0 Blood Glucose* 87 - General Appearance General appearance: Present: well-developed, well-nourished, obese EENT: Present: ATNC, mucous membranes moist Neck: Present: no JVD, supple Additional Comments: improved areation ant bilat Cardiology: Present: edema (LE improving bilat), normal S1, normal S2 Gastrointestinal: Present: no tenderness, no guarding, obese Integumentary: Present: warm and dry Neurologic: Present: no focal deficit Musculoskeletal: Present: no deformities Psychiatric: Present: mood/affect appropriate, cooperative - Lab 07/09/18 05:44 07/11/18 06:30 Most recent lab results Calcium 9.5 mg/dL (8.6-10.3) 07/11/18 06:30 Magnesium 2.2 mg/dL (1.6-2.6) 07/08/18 05:52 Urine Creatinine 74 mg/dL 07/09/18 15:41 Ur Total Protein 24 Hr 835 mg/day (50-80) H 07/09/18 15:41 Urine Sodium 41.6 mEq/L 07/09/18 15:41 Urine Total Protein 29 mg/dL (1-14) H 07/09/18 15:41 Consult Discharge Plan - Plan Referrals: [facility] [Outside] NONE,PCP [Primary Care Provider] -
[2018-07-12 06:09] LABS: Calcium 9.4 mg/dL (8.6-10.3); Potassium 3.5 mEq/L (3.5-5.1)
--- NOTE | 2018-07-12 08:25 | Event Note ---
Date of Encounter: 07/12/18 Time of Encounter: 08:30 - Cardiology Event Note Laboratory Tests 07/12/18 04:36 Creatinine 2.11 H Est GFR (Non-Af Amer) 33 L Net I&O = -9539ml. discussed with nephrology, and for left heart catheterization today. Holding IV Lasix this morning. Will evaluate resuming after catheterization. We will need to evaluate long-term anticoagulation after catheterization as well.
[2018-07-12] MEDS ORDERED: Heparin 1,000 UNITS/500 mL 500 ML ONE (08:33)
[2018-07-12] MEDS ORDERED: *HR* Heparin 10,000 UNIT/10 ML VIAL ONE (08:33)
[2018-07-12] MEDS ORDERED: ISOVUE-370 200 ML INFUS..BTL ONE (08:33)
[2018-07-12] MEDS ORDERED: 0.9 % Sodium Chloride 1,000 ML ONE (08:33)
[2018-07-12] MEDS ORDERED: Nitroglycerin 1,000 MCG/10 ML VIAL IV ONE (08:33)
[2018-07-12] MEDS ORDERED: ISOVUE-250 150 ML INFUS..BTL ONE (08:42)
--- NOTE | 2018-07-12 08:42 | Pre-Sedation Evaluation ---
Pre-sedation evaluation - Pre-sedation checklist Date of procedure: 07/12/18 Procedure: [facility] Recent Vitals: Last Vital Signs Temp 97.9 F 07/12/18 07:25 Pulse 79 07/12/18 07:25 Resp 16 07/12/18 07:25 BP 151/99 07/12/18 07:25 Pulse Ox 94 07/12/18 07:25 H&P (including ROS) documented in medical record: Yes Previous reaction to sedatives/anesthetics: No Dietary Status: NPO after Midnight Airway Assessment: Patient can open mouth completely, TMJ function normal, Micrognathia (under-bite, receding chin) absent, Neck with adequate range of mot ion Dentition: No loose teeth or bridges Possible difficult airway: Yes If Yes;: Morbid obesity ASA Classification *see protocol: CLASS II-Mild systemic disease Plan of Care: Pt appropriate candidate for procedure/moderate/conscious sedation, Risks/benefits of procedure/sedation discussed w/ patient/family Cardiac Registry (Cardio Only) - Functional Capacity Functional Capacity: < 4 METS - Clincal Frailty Scale Clinical Frailty Scale: Vulnerable
[2018-07-12] MEDS ORDERED: *HR* FentaNYL (PF) 100 MCG/2 ML VIAL ONE (08:49)
[2018-07-12] MEDS ORDERED: *HR* Midazolam HCl 2 MG/2 ML VIAL ONE (08:50)
[2018-07-12] MEDS ORDERED: Verapamil 5 MG/2 ML VIAL ONE (09:05)
--- NOTE | 2018-07-12 09:56 | Invasive Diagnostic Lab Proc ---
Name: Law Potter Date of Study: 07/12/2018 Date: 1965 Ht: 75.2in Medical Record#: [id number] Age: 52 Wt: 368.17lb Gender: Male BSA: 2.85 Order #: [id number] BMI: 45.78 Physicians Procedure Physician: Ny Adams MD, [facility] Referring MD: Referring MD: Staff Name Position Time In Masha Zapata RN Monitor 09:03 AM Bong Caraballo RN Framing Manager 09:03 AM Carrie Rowley RT (R) Scrub 09:03 AM Freddy Gonzalez RN Framing Manager 09:18 AM Indications Indication Non-Stemi Procedures Performed Procedure CORONARY ARTERY ANGIO S&I Pre-Procedure Checklist Informed consent is complete signed and on chart. H&P is on chart. ID band is on and ID verified with patient. Patient NPO for procedure The procedure was described for the patient and questions were answered. Blood Pressure: 151/99 ECG is on chart. Rhythm: Atrial Fibrillation Plan of Care Patient will tolerate the procedure without complications. Adequate level of comfort will be maintained. Hemodynamics will remain stable Patient will recover from procedure without complications. Respiratory function will be maintained. Cardiac rhythm will remain stable. Patient temperature will be maintained. Patient and/or family have verbalized understanding of the procedure. Patient Education Chief Complaint/Reason for Test: Cardiac Cath Developmental Category: Adult (18-64 years) Developmentally Appropriate for Age: Yes Learning Barriers: None Education Needs: Procedure Education Method: Verbal Information Taught: Cardiac Cath Educational Evaluation: Able to repeat information Intravenous Access Time IV Size Location DC'd Fluid/Drip Rate Units RN 08:56 AM 20g 1 1/4" Patent On Arrival Lt Hand 0.9NaCl 25 ml/hr Bong Caraballo RN Allergies No Known Allergies Vital Signs Time BP (mmHg) HR (bpm) O2 Sat. RR (bpm) LOC 08:56 AM 151 / 99 79 94 % 16 5 = Fully awake and oriented or at pre-proc level 09:04 AM / % 5 = Fully awake and oriented or at pre-proc level 09:04 AM / % 4 = Oriented but drowsy 09:19 AM / % 5 = Fully awake and oriented or at pre-proc level 09:15 AM 187 / 134 94 87 % 18 09:20 AM 182 / 114 102 87 % 21 09:25 AM 184 / 110 101 92 % 26 09:30 AM 168 / 117 81 94 % 16 09:35 AM 169 / 119 79 95 % 19 Procedural Medications Time Medication Dose Units Method Given By 09:04 AM Oxygen 2 L/min nasal cannula Bong Caraballo RN 09:18 AM Versed 2 mg Intravenous Bong Caraballo RN 09:18 AM Fentanyl 50 mcg Intravenous Bong Caraballo RN 09:21 AM Lidocaine 2% 1.5 ml Subcutaneous Ny Adams MD, [facility] 09:25 AM Heparin 4000 units Nitroglycerin 200 mcg Verapamil 2.5 mg Intraarterial Ny Adams MD, [facility] ASA Classification: CLASS II- Mild systemic disease (i.e. well-controlled diabetes, hypertension, asthma, cigarette smoking) Lia Score Preprocedure Postprocedure Activity 2- Moves 4 extremities sustained head lift Activity 2- Moves 4 extremities sustained head lift Circulation 2- SBP +/= 20 points of pre-anesthetic level Circulation 2- SBP +/= 20 points of pre-anesthetic level Consciousness 2- Awake and alert oriented x 3 Consciousness 2- Awake and alert oriented x 3 O2 Saturation 2- Able to maintain O2 satruation of 92% on room air O2 Saturation 2- Able to maintain O2 satruation of 92% on room air Respiratory 2- Able to deep breathe and cough well Respiratory 2- Able to deep breathe and cough well Total Score 10 Total Score 10 Contrast Agent: Isovue Diagnostic Contrast: 48 ml Total Contrast: 48 ml Fluoro Dose: 64 mGy Procedure Log Time Note Enter By 08:44 AM CathStat 09:02 AM Pt arrived to denture laboratory technician 1 at 09:02 scoates 09:03 AM Masha Zapata RN Position: Monitor Time in: 09:03 scoates 09:03 AM Bong Caraballo RN Position: Framing Manager Time in: 09:03 scoates 09:03 AM Carrie Rowley RT (R) Position: Scrub Time in: 09:03 scoates 09:03 AM Patient charges- Angio tray pack, Navilyst 3mm J, Pulse Oximetry and ACIST tubing and transducer scoates 09:03 AM Case Delayed no scoates 09:03 AM Physician arrived 09:03 scoates 09:03 AM Lamberto completed scoates 09:03 AM Sign in performed according to hospital policy. Informed consent was obtained. scoates 09:03 AM Procedure start 09:03 scoates 09:04 AM Time: 09:04 Patient comfortable and pain free: Yes scoates 09:04 AM Time: 09:04LOC: 5 = Fully awake and oriented or at pre-proc level scoates 09:04 AM Time: 09:04 Oxygen on at 2 L/min per nasal cannula by Bong Caraballo RN scoates 09:08 AM ASA Class CLASS II- Mild systemic disease (i.e. well-controlled diabetes, hypertension, asthma, cigarette smoking) scoates 09:08 AM Hair removed from procedure site in procedure lab using clippers. Lt wrist and rt groin prepped with Chloraprep by Bong Caraballo RN, then patient was draped. Skin intact. scoates 09:14 AM Vitals capture started with the following parameters, Patient=Adult, Interval=5 min, Initial Omeesjds=089 mmHg, Deflation Rate=3 mmHg, Cuff placed on Right Arm 09:15 AM HR=94 bpm, VUKX=651/134 mmhg, SpO2=87.0 %, Resp=18 B/min 09:17 AM Recorded ECG: HR=81 Condition=Condition 1 09:17 AM Reference ECG taken 09:17 AM Reference ECG taken 09:18 AM Time: :18 Versed 2 mg Intravenous Given by Bong Caraballo RN scoates 09:18 AM Time: 09:18 Fentanyl 50 mcg Intravenous Given by Bong Caraballo RN scoates 09:18 AM Freddy Gonzalez RN Position: Framing Manager Time in: 09:18 scoates 09:19 AM Time: :04LOC: 4 = Oriented but drowsy scoates 09:19 AM Time: 09:04 Patient comfortable and pain free: Yes scoates 09:20 AM AK=065 bpm, MITC=748/114 mmhg, SpO2=87.0 %, Resp=21 B/min 09:21 AM Time out was performed according to hospital policy. Conscious sedation and anesthesia was achieved (see medication log with in this report above) scoates 09:22 AM Time: 09:21 1.5 ml Lidocaine 2% to left radial Subcutaneous Given by Ny Adams MD, [facility] scoates 09:24 AM Access obtained by percutaneous puncture. 6Fr 11cm Terumo Glidesheath sheath placed in right Radial artery. [id number] scoates 09:25 AM Time: 09:25 Patient given 4,000 units Heparin, 200 mcg Nitroglycerin, and 2.5 mg Verapamil Intraarterial by Ny Adams MD, [facility]. This is given to reduce risk of vessel spasm and thrombosis. scoates 09:25 AM GH=274 bpm, KRHH=238/110 mmhg, SpO2=92.0 %, Resp=26 B/min, Comment=afib 09:27 AM Pressure channel 1 zeroed. 09:28 AM 5Fr FR 4 catheter inserted over the wire DN scoates 09:29 AM Recorded Pressure: Ao, HR=92, Condition=Condition 1 (Aorta) Ao 123/100/111 09:30 AM HR=81 bpm, KRLE=691/117 mmhg, SpO2=94.0 %, Resp=16 B/min, Comment=afib 09:30 AM RCA angiography performed in multiple views. scoates 09:30 AM Coronary Dominance: right scoates 09:31 AM Catheter removed scoates 09:32 AM 5Fr FL 4 catheter inserted over the wire DN scoates 09:33 AM Recorded Pressure: Ao, HR=90, Condition=Condition 1 (Aorta) Ao 123/95/108 09:33 AM LCA angiography performed in multiple views. scoates 09:34 AM Time: 09:19 Patient comfortable and pain free: Yes scoates 09:34 AM Time: 09:19LOC: 5 = Fully awake and oriented or at pre-proc level scoates 09:35 AM Catheter removed scoates 09:35 AM HR=79 bpm, JDUD=513/119 mmhg, SpO2=95.0 %, Resp=19 B/min 09:36 AM Procedure completed at 09:36 07/12/2018 scoates 09:36 AM Did you address TERESA flow and Dominance? Yes scoates 09:38 AM Sign out completed: Radiation Dose 478 mGy, 63.53 Gy/cm2 Fluoro Time: 1.8 Isovue 370 - 200ml contrast 48 ml given by Ny Adams MD, [facility]. Complications: None. The patient was discharged out of the carpenter/labor in stable condition. Sedation minutes 19. Cardiac Rehab Consult needed: No. Confirmed administered medications: Yes scoates 09:38 AM Isovue 370 - 200ml,1 Bottle(s) used. scoates 09:38 AM Arterial sheath pulled, Vasc Band closure device used and was Successful S/N. scoates 09:38 AM 15 ml air in Vasc Band. scoates 09:39 AM Estimated Blood Loss: minimal scoates 09:39 AM Post ECG Atrial Fibrillation scoates 09:40 AM Post Blood Pressure 184/117 scoates 09:40 AM 09:40 Post Pulses Lt Radial 1+ scoates 09:40 AM Information taught Cardiac Cath and Vasc Band scoates 09:41 AM Education needs Procedure, Plan of Care, and Responsibilities of Patient in Care scoates 09:41 AM Learning barriers :None scoates 09:41 AM Education Methods Verbal scoates 09:41 AM Education evaluation Able to repeat information scoates 09:41 AM Site status No bleeding/hematoma - Lt Wrist as reported by Janet Shukla RT at 09:41 scoates 09:41 AM Plavix, Effient or Brilinta given No scoates 09:41 AM Delay to floor No scoates 09:41 AM Family placed in consult room. scoates 09:43 AM Lesion found in Proximal RCA. Pre Stenosis: 20 Pre TERESA Flow: scoates 09:43 AM Lesion found in Mid RCA. Pre Stenosis: 20 Pre TERESA Flow: scoates 09:43 AM Lesion found in Proximal LAD. Pre Stenosis: 25 Pre TERESA Flow: scoates 09:43 AM Lesion found in Proximal Circumflex. Pre Stenosis: 25 Pre TERESA Flow: scoates 09:45 AM Report given to 3A nurse RN Pt taken to 3A Room #35. 09:45 scoates 09:45 AM Patient out of room: 09:45 scoates 09:47 AM Proximal Left Anterior Descending Coronary Artery with 25% stenosis. If graft is supplying this territory, 0 % stenosis. scoates 09:47 AM Circumflex, Obtuse Marginal, Left Posterior Descending, and Left Posterolateral Coronary Arteries with 25 % stenosis. If graft is supplying this area, 0 % stenosis scoates 09:47 AM Right Coronary, Right Posterior Descending Arteries with Right Posterolateral and Acute Marginal branches with 20 % stenosis. If graft is supplying this area, 0 % stenosis scoates Complications Complication None Hemodynamics Pressures Site Systolic/A Wave Diastolic/V Wave Mean AO 123 100 111 AO 123 95 108 Post Procedure Information Blood Pressure: 184/117 mmHg Rhythm: Atrial Fibrillation Post procedural instructions were given Closure Device Time Device Success/Fail 07/12/2018 9:40:00 AM Manual Compression Successful Site Checks Time Location Status Staff Sheath In? Note 09:41 AM Lt Wrist No bleeding/hematoma Janet Shukla RT Pulses Time Site Pre-Procedure Post-Procedure Note 07/12/2018 9:01:00 AM Bilateral DP & PT 1+ Bilateral radial 2+ 9:40:00 AM Lt Radial 1+ Updated by Masha Colvin RN on 07/12/2018 9:49:24 AM electronically signed on 07/12/2018 9:49:43 AM with status of Final
[2018-07-12] MEDS ORDERED: 0.9 % Sodium Chloride 1,000 ML IVC SCH (10:00)
--- NOTE | 2018-07-12 10:06 | Internal Med Progress Note ---
<Diana Bradshaw - Last Filed: 07/12/18 13:25> Hospitalist Progress Note - Encounter Date of Encounter: 07/12/18 Time of Encounter: 10:15 - Subjective Interval History: No new complaints- palpations and shortness of breath resolved. He is eager for [facility] today as dislikes NPO - Exam Vitals: Temp Pulse Resp BP Pulse Ox 97.9 F 79 16 151/99 94 07/12/18 07:25 07/12/18 07:25 07/12/18 07:25 07/12/18 07:25 07/12/18 07:25 Exam: Gen.: Vitals noted. No acute distress. AAOx3, resting comfortably in bed. Morbidly obese Cardiac: irregularly irregular rate controled + Extremity; 2+ B LE edema up to calves R>L Pulmonary: CTA bilaterally, no wheezes, rales or rhonchi, equal chest expansion, unlabored breathing Abdomen: soft, nontender, BS noted, no guarding Skin: warm and dry, no visible lesions. MSK: ROM intact, no joint swelling noted, Neuro: A&Ox3, moves all extremities, no focal deficits, sensation intact Psych: Appropriate mood and behavior, AOx3 - Assessment and Plan (1) Atrial fibrillation with RVR Current Visit: Yes Status: Acute Assessment and Plan: New diagnosis A fib rate controlled on cardizem 25 mg bid - restarted continue heparin after [facility] - start coumadin pharmacy to dose - moreno check lovenox bridge as patient anxious for discharge - continue cardiac monitoring CADVAS of 2 -per cardiology plan for skilled nursing anticoagulation with coumadin (2) Elevated troponin Current Visit: Yes Status: Acute Assessment and Plan: Down trended elevated troponin 0.18, 0.17, 0.14, and 0.16. No acute EKG changes DDx silent NSTEMI v demand ischemia due to CNF & A fib - cardiology consulted with [facility] today after mucomyst 07-12-18 [facility] showing minimal CAD recommended medical management (3) CHF (congestive heart failure) Current Visit: Yes Status: Acute Assessment and Plan: New diagnosis heart failure improving with dieureiss On admission presented in exacerbation with fluid overload with BNP > 1300 and Chest XR interstitial edema . Echo EF 30 % with severe LVH - agree with cardiology PO lasix 40 mg daily - strict I/O- net cumulative greater than 9 L Cardiology and nephrology consulted - appreciate recommendations (4) CKD (chronic kidney disease) stage 3, GFR 30-59 ml/min Current Visit: Yes Status: Suspected Assessment and Plan: Despite dieresis Scr holding steady around 2.1 from 2.34 with unknown baseline. Epect some increase tomorrow with C but received mucomyst prophylaxis Continue to have good UOP of nearly 2L yesterday Urine studies completed FEN suggesting pre-renal etiology. Trace protienuria - nephrology consulted and appreciate recommendations - avoid nephrotoxins 07-10-18 Renal US showed left renal cysts but kidneys normal in size with out hydronephrosis (5) Hypertension Current Visit: Yes Status: Chronic Assessment and Plan: Elevated today up to 160/118 with history of untreated HTN - continue coreg - prn lopressor - avoid nephrotoxins such as JOJO or ARB - avoid hydralazine due to rebound HTN Again discussed with patient need for outpatient follow up and establish PCP for continued adjustment (6) Pre-diabetes Current Visit: Yes Status: Acute Assessment and Plan: Plan for out patient follow up with [facility] (7) Morbid obesity with BMI of 45.0-49.9, adult Current Visit: Yes Status: Chronic (8) Uninsured Current Visit: Yes Status: Acute Assessment and Plan: Appreciate social work help with pricing lovenox bridge and HCAP DVT Prophylaxis: heparin - Summary of Assessment and Plan Summary of Assessment and Plan: Patient eager for possible discharge tomorrow - Time Spent with Patient Total time spent is greater than 50% in coordination of care (as documented) at patient's floor/unit and/or counseling patient: Internal Medicine: Result - Labs CBC & Chem 7: 07/12/18 11:15 07/12/18 04:36 Labs: BMP 07/12/18 04:36 Sodium 145 Potassium 3.5 Chloride 106 Carbon Dioxide 31 H BUN 33 H Creatinine 2.11 H Glucose 93 Calcium 9.4 - ABG Interpretation ABG results: PT/INR, D-dimer PT 13.0 Seconds (9.4-12.1) H 07/07/18 07:07 Consult Discharge Plan - Plan Referrals: [facility] [Outside] NONE,PCP [Primary Care Provider] - <Ney Alvarez - Last Filed: 07/12/18 18:12> Hospitalist Progress Note - Encounter Date of Encounter: 07/12/18 - Exam Vitals: Temp Pulse Resp BP Pulse Ox 97.9 F 79 16 146/99 93 07/12/18 14:58 07/12/18 14:58 07/12/18 14:58 07/12/18 14:58 07/12/18 14:58 - Assessment and Plan (1) CHF (congestive heart failure) Current Visit: Yes Status: Acute (2) Atrial fibrillation Current Visit: Yes Status: Chronic (3) Morbid obesity with BMI of 45.0-49.9, adult Current Visit: Yes Status: Chronic (4) Demand ischemia Current Visit: Yes Status: Acute (5) CKD (chronic kidney disease) stage 3, GFR 30-59 ml/min Current Visit: Yes Status: Suspected (6) Hypertension Current Visit: Yes Status: Chronic - Time Spent with Patient Total time spent is greater than 50% in coordination of care (as documented) at patient's floor/unit and/or counseling patient: Internal Medicine: Result - Labs CBC & Chem 7: 07/12/18 11:15 07/12/18 04:36 Labs: Short CBC 07/12/18 Range/Units 11:15 WBC 5.7 (4.3-11.1) K/mcL Hgb 13.3 (12.9-16.9) g/dL Hct 41.1 (37.5-50.1) % Plt Count 238 (140-400) K/mcL BMP 07/12/18 04:36 Sodium 145 Potassium 3.5 Chloride 106 Carbon Dioxide 31 H BUN 33 H Creatinine 2.11 H Glucose 93 Calcium 9.4 - ABG Interpretation ABG results: PT/INR, D-dimer PT 12.6 Seconds (9.4-12.1) H 07/12/18 11:15 - Attending Attestation I examined this patient and my medical decision-making was reviewed with the Resident Physician on 07/12/18. I agree with the documented findings, disposition and treatment plan as described except to the extent set forth below. Mr Potter is currently admitted for CHF exac and rapid a fib. He remains moderate to high risk due to potential for worsening clinical status. Mr Potter had [facility] today - medical management. No fever or chills. Feels OK. Hopes to be discharged soon. Exam alert Comfortable Mucus membranes dry Heart irreg and not tachy No wheeze abd soft Edema persists but better I/P 1. Systolic CHF- nonischemic. On medical management with betablocker. No JOJO/ARB due to renal disease. 2. Atrial fibrillation - rate controlled 3. Morbid obesity Further diagnoses and plan as above. Recheck labs tomorrow. <Diana Bradshaw - Last Filed: 07/12/18 13:25> (3) CHF (congestive heart failure) Qualifiers: Heart failure type: systolic Heart failure chronicity: acute Qualified Code(s): I50.21 - Acute systolic (congestive) heart failure (5) Hypertension Qualifiers: Hypertension type: essential hypertension Qualified Code(s): I10 - Essential (primary) hypertension <Ney Alvarez - Last Filed: 07/12/18 18:12> (1) CHF (congestive heart failure) Qualifiers: Heart failure type: systolic Heart failure chronicity: acute Qualified Code(s): I50.21 - Acute systolic (congestive) heart failure (2) Atrial fibrillation Qualifiers: Atrial fibrillation type: persistent Qualified Code(s): I48.1 - Persistent atrial fibrillation (6) Hypertension Qualifiers: Hypertension type: essential hypertension Qualified Code(s): I10 - Essential (primary) hypertension
[2018-07-12] MEDS ORDERED: *HR* Heparin 5,000 UNIT/ML VIAL IVP PRN ×2 (11:00)
[2018-07-12] MEDS ORDERED: *HR* Heparin 5,000 UNIT/ML VIAL IVP ONE (11:00)
--- NOTE | 2018-07-12 11:03 | Event Note ---
Date of Encounter: 07/12/18 Time of Encounter: 11:00 - Cardiology Event Note Per Dr. Marychuy Adams, [facility] with no intervention warranted; consider amyloidosis. I had lengthy discussion with patient and family regarding long-term anticoagulation. Has [id number]= 2 (CHF, HTN), patient has no health insurance and with ZBIGNIEW vs CKD, patient agreeable to Coumadin with target INR 2.0-3.0-- will initiate with pharmacy to dose. Will follow BMP and INR tomorrow. Consider resuming diuretics; will defer to nephrology.
[2018-07-12 11:31] LABS: Hematocrit 41.1 % (37.5-50.1); Hemoglobin 13.3 g/dL (12.9-16.9); Mean Corpuscular HGB Conc 32.4 g/dL (31.6-35.5); Mean Corpuscular Hemoglobin 29.3 pg (28.0-33.3); Mean Corpuscular Volume 90.5 fL (83.0-100.0); Mean Platelet Volume 9.7 fL (9.4-12.4); Platelet Count 238 K/mcL (140-400); Red Blood Count 4.54 M/mcL (4.19-5.50); Red Cell Distribution Width 16.7 % (11.5-14.5)
[2018-07-12] MEDS: *HR* Acetylcysteine 20% 600 MG/3 ML ORAL SYRINGE PO SCH ×2 (11:39→20:36)
[2018-07-12] MEDS: Aspirin Enteric Coated 81 MG Tablet PO SCH (11:39)
[2018-07-12 11:43] LABS: Heparin anti-factor XA UFH 0.34 IU/mL (0.30-0.70)
[2018-07-12 11:44] LABS: INR 1.1; Prothrombin Time 12.6 Seconds (9.4-12.1)
[2018-07-12] MEDS: Heparin 25,000 UNIT/250 ML D5W 25,000 UNIT/250 ML IV.SOLN IVC SCH (13:34)
[2018-07-12] MEDS: Furosemide 40 MG TABLET PO SCH (13:34)
[2018-07-12] MEDS ORDERED: Warfarin perPT PO PRN (18:00)
[2018-07-12] MEDS ORDERED: *HR* Warfarin 5 MG TABLET PO SCH (18:00)
--- NOTE | 2018-07-12 23:43 | Nephrology Progress Note ---
Date of Encounter: 07/12/18 Time of Encounter: 17:00 - Assessment and Plan (1) Elevated serum creatinine Current Visit: Yes Status: Acute SCr remains about the same at 2.11, GFR 33, recommended LHC today Diuretics held today, will resume by tomorrow orally UOP noted at 1725cc in the past 24hrs Po fluids today only Avoid any more nephrotoxins if possible Continue mucomyst for 6 doses total (2) Atrial fibrillation with RVR Current Visit: Yes Status: Acute (3) CHF (congestive heart failure) Current Visit: Yes Status: Acute Qualifiers: Heart failure type: systolic Heart failure chronicity: acute Qualified Code(s): I50.21 - Acute systolic (congestive) heart failure Subjective Principal diagnosis: CHF, Afib, CMP Interval history: Interim noted s/p LHC with mild CAD noted, amyloidosis to be considered. Pt seen and examined with at bedside with no complaints, still feeling better. UOP noted approx. 1.7 liters in the past 24hrs Objective - Vital Signs Vital signs: Vital Signs Temp Pulse Resp BP Pulse Ox 07/12/18 23:01 97.6 F 82 16 155/96 94 07/12/18 18:48 98.1 F 94 18 136/85 94 07/12/18 14:58 97.9 F 79 16 146/99 93 07/12/18 09:59 97.5 F L 87 16 160/118 93 07/12/18 07:25 97.9 F 79 16 151/99 94 07/12/18 04:42 97.9 F 79 14 155/108 90 07/12/18 00:28 98.0 F 92 17 158/90 95 Intake and Output 07/12/18 07/12/18 07/12/18 07:59 15:59 23:59 Intake Total 490 / 490 900 / 900 Output Total 1600 / 1600 175 / 175 18745 Balance -1600 / -1600 315 / 315 -975 / -975 Intake: IV Fluids 250 / 250 Heparin 25,000 UNIT/250 ML D5W 250 / 250 25,000 unit In 250 ml @ 5.5 UNIT/KG/HR 9.874 mls/hr IVC . Q24H SMITHA Rx#:[id number] Oral 240 / 240 900 / 900 Output: Urine 1600 / 1600 175 / 175 1874 Other: Meal Lunch Dinner Percent of Meal Consumed 100% 100% # Bowel Movements 0 0 Weight 168.339 kg Patient Weight 07/12/18 23:59 Weight 168.339 kg - Lab 07/12/18 11:15 07/12/18 04:36 Most recent lab results Calcium 9.4 mg/dL (8.6-10.3) 07/12/18 04:36 Magnesium 2.2 mg/dL (1.6-2.6) 07/08/18 05:52 Urine Creatinine 74 mg/dL 07/09/18 15:41 Ur Total Protein 24 Hr 835 mg/day (50-80) H 07/09/18 15:41 Urine Sodium 41.6 mEq/L 07/09/18 15:41 Urine Total Protein 29 mg/dL (1-14) H 07/09/18 15:41 Consult Discharge Plan - Plan Referrals: [facility] [Outside] NONE,PCP [Primary Care Provider] -
[2018-07-13] MEDS: Heparin 25,000 UNIT/250 ML D5W 25,000 UNIT/250 ML IV.SOLN IVC SCH (03:13)
[2018-07-13 06:23] LABS: INR 1.2; Prothrombin Time 13.6 Seconds (9.4-12.1)
[2018-07-13 06:38] LABS: Calcium 9.5 mg/dL (8.6-10.3); Potassium 3.7 mEq/L (3.5-5.1)
--- NOTE | 2018-07-13 08:58 | Discharge Summary ---
<Alberta Marsh - Last Filed: 07/13/18 14:00> Orders not resulted at time of discharge: Pending orders 07/14/18 04:00 BMP [Basic Metabolic Panel] AM 0400 PT/INR [Prothrombin Time INR] [COAG] AM 0400 07/15/18 04:00 PT/INR [Prothrombin Time INR] [COAG] AM 0400 Date of Encounter: 07/13/18 - Discharge Diagnosis (1) CHF (congestive heart failure) Status: Acute Qualifiers: Heart failure type: systolic Heart failure chronicity: acute Qualified Code(s): I50.21 - Acute systolic (congestive) heart failure (2) Atrial fibrillation Status: Acute Qualifiers: Atrial fibrillation type: unspecified Qualified Code(s): I48.91 - Unspecified atrial fibrillation (3) Morbid obesity with BMI of 45.0-49.9, adult Status: Chronic (4) Demand ischemia Status: Resolved (5) CKD (chronic kidney disease) stage 3, GFR 30-59 ml/min Status: Suspected (6) Hypertension Status: Chronic Qualifiers: Hypertension type: essential hypertension Qualified Code(s): I10 - Essential (primary) hypertension Hospital course: Mr. Potter is a 52 year old male - Time Spent with Patient Total time spent providing and/or coordinating discharge services: Time spent: Greater than 30 minutes (45 min) - Discharge Medications Prescriptions: New amLODIPine [Norvasc] 5 mg PO DAILY #30 tablet Aspirin Enteric Coated [Aspirin EC] 81 mg PO DAILY #30 tablet. Atorvastatin [Lipitor] 20 mg PO HS #30 tablet Carvedilol [Coreg] 25 mg PO BIDWM #60 tablet Furosemide [Lasix] 40 mg PO DAILY #30 tablet Warfarin [Coumadin] 5 mg PO DAILY@1800 30 Days #30 tablet Enoxaparin [Lovenox] 150 mg SQ Q12HR 7 Days #14 syr Continue Ubidecarenone [Co Q-10] 400 mg PO DAILY Multivitamin [One Daily] 1 tab PO DAILY Home Medications: Multivitamin [One Daily] 1 tab PO DAILY 07/08/18 [History] Ubidecarenone [Co Q-10] 400 mg PO DAILY 07/08/18 [History] Aspirin Enteric Coated [Aspirin EC] 81 mg PO DAILY #30 tablet. 07/13/18 [Rx] Atorvastatin [Lipitor] 20 mg PO HS #30 tablet 07/13/18 [Rx] Carvedilol [Coreg] 25 mg PO BIDWM #60 tablet 07/13/18 [Rx] Enoxaparin [Lovenox] 150 mg SQ Q12HR 7 Days #14 syr 07/13/18 [Rx] Furosemide [Lasix] 40 mg PO DAILY #30 tablet 07/13/18 [Rx] Warfarin [Coumadin] 5 mg PO DAILY@1800 30 Days #30 tablet 07/13/18 [Rx] amLODIPine [Norvasc] 5 mg PO DAILY #30 tablet 07/13/18 [Rx] Allergies/Adverse Reactions: Allergy/AdvReac Type Severity Reaction Status Date / Time No Known Allergies Allergy Verified 07/07/18 02:25 Date of admission: 07/07/18 08:01 Primary care physician: PCP NONE Consults: 07/07/18 10:00 Consult to Cio [CONS] Routine Reason for SW Consult: Finances, assistance with care. 07/07/18 15:43 Consult to Cardiology [CONS] Routine Comment: Consulting Provider: Cardiology Ayesha Reason for Consult: Echo findings for EF 30%, Severe LVH Call Completed: Yes 07/07/18 16:39 Consult to Nurse Navigator [CONS] Routine Comment: chf 07/08/18 14:45 Consult to Nephrology [CONS] Routine Consulting Provider: Kidney Ayesha/COLETTE/CARINE/LUIS Reason for Consult: ZBIGNIEW v unknwon CKD with new diagnosis A fib and CHF Ef 30% Call Completed: Yes - Constitutional Vitals: Temp Pulse Resp BP Pulse Ox 98.4 F 89 15 132/87 94 07/13/18 09:30 07/13/18 09:30 07/13/18 09:30 07/13/18 09:30 07/13/18 09:30 - Patient Status Disposition: Home, Self-Care Condition: Good - Discharge Instructions Follow Up With: Nicolette Gonzalez, LIFTER [Advanced Practice Nurse] - (nicolette arranging fu outpt) Mike Benitez [Resident] - 07/19/18 2:00 pm Tao Gibbs MD [Partnered Physician] - Additional Instructions: RISK FACTORS: STOP SMOKING: If you smoke, STOP. Smoking or tobacco use significantly increases your risk of heart disease because nicotine causes the arteries to narrow or constrict. It also causes fats to stick to the artery. Your chances of having a heart attack are greatly increased if you continue to smoke. For more information, call the education line for smoking cessation 1-370-WVDIHGT EAT A LOW FAT/CHOLESTEROL/SODIUM DIET: This diet may help reduce your chances of having a heart attack. LIFTING: With affected extremity: Avoid bending, pushing off and lifting more than 2 pounds for 24 hours The following 48 hours, avoid lifting anything more than 5 pounds Avoid strenuous activity or repetitive motions ACTIVITY: You may walk or climb stairs as tolerated You can resume sexual activity as tolerated In general, you are encouraged to engage in a minimum of 30 minutes or more of moderate intensity physical activity, such as brisk walking, daily or at least 3-4 times weekly BATHING Do not submerge the site into water (bath tub, hot tub, swimming pool, dishes) for 1 week. This can be a source for infection into the blood stream. You may shower after 24 hours SITE CARE: After 24 hours, you may remove the dressing and leave the site open to air. Keep the site clean and dry. Clean gently and pat dry. You can expect bruising and tenderness that gradually resolve within a week or two. Return to work as instructed per your physician Resume driving as instructed per physician Keep all scheduled follow up appointments Resume medications as instructed IMPORTANT: If prescribed a Platelet Aggregation Inhibitor such as, Plavix, Brilinta or Effient: Duration of therapy is minimum one year These medications are often used in combination with Aspirin in prevention of future heart attacks Never discontinue unless consult with your Senior Mechanical Technician STROKE (CVA) Risk factors for a stroke are: Age, cigarette smoking, diabetes, excessive alcohol consumption, family history, high blood pressure, overweight, physical inactivity, prior stroke, heart attack, diagnosis of carotid artery stenosis or other artery disease. Warning signs: Sudden numbness or weakness of the face, arm or leg; especially on one side of the body, sudden confusion, trouble speaking or understanding, sudden trouble seeing in one or both eyes, sudden trouble walking, dizziness, loss of balance or coordination, sudden severe headache with no cause. Call 911 or go to the Emergency Room. CONGESTIVE HEART FAILURE: If you have been diagnosed with Congestive Heart Failure (CHF) and your symptoms return, make an appointment with your physician Weigh yourself daily. Notify your physician if you have a weight gain of two or more pounds in one day or five or more pounds in one week. If you experience any difficulty breathing, please call 911 BLEEDING: Although the risk of bleeding is minimal, it can happen. If you have any bleeding from the site, apply firm pressure above the puncture site for 10-15 minutes. If the bleeding does not stop, continue manual pressure and call 911 Contact [facility] ( ) if: You develop a fever greater than 101 degrees Fahrenheit Your site becomes reddened or has any drainage You have an increase in pain or burning at the site or if a large knot forms at the site. If you experience chest pain, shortness of breath, dizziness, or extreme tiredness, stop the activity and rest. Please notify [facility] office if you experience any of these symptoms and they are not relieved by rest please call 911! - Diet and Activity Diet: low fat, low cholesterol, low salt diet, other (1.5 Liter daily fluid restriction) - Attending Attestation I examined this patient and my medical decision-making was reviewed with the Resident Physician Dr Hannah. I agree with the documented findings, disposition and treatment plan as described except to the extent set forth below. Mr Potter is admitted for CHF exac and rapid a fib which is now improved and rate controlled afib. His renal status is improving. He is stable for dc to home with lovenox renal dose bridge to coumadin as d/w pharmacy and cards and nephro fu outpt. Mr Potter is awake with family at bedside. He i feeling well. no cp, pressure sob, palpitations. gen- alert, awake,appears stated age eyes- pupils equal round cv- reg rate and irreg/irreg rhythm, normal s1,s2, no murmurs appreciated, trace pitting le edema, no jvd lungs- ctabl, no wheezing, rhonchi or crackles, normal resp effort on ra abd- soft, non tender, non distended, + bs neuro- AAOx3 1. Acute new diagnosis Systolic CHF- nonischemic. On medical management with betablocker. No JOJO/ARB due to renal disease. will fu with cards outpt. cont daily po lasix and nephro fu outpt; cards will further investigate possible infiltrative heart disease outpt 2. Atrial fibrillation - rate controlled- cont current regimen on dc, renal dose lovenox bridge to therapeutic coumadin, Coumadin clinic appt in place at time of dc 3. Morbid obesity- lifestyle modifications 4. HTN, stable with meds- outpt fu 5. CKD III- nephro followed and assisted in diuresis, fu outpt Further diagnoses and plan as noted by resident time spent on dc 45 min <Sidney Hannah - Last Filed: 07/13/18 14:52> - NOTES TO OUTPATIENT PROVIDER Notes to Outpatient Provider: Mr. Potter admitted for new onset HFrEF as well as new onset AFib. Underwent LHC with no stenotic lesions. Anticoagulated on warfarin and needs to follow up with coumadin clinic. Has cardiology follow up for etiology- cardiology considering amyloidosis. Orders not resulted at time of discharge: Pending orders 07/13/18 12:00 Heparin anti-factor XA UFH [COAG] Timed 07/14/18 04:00 BMP [Basic Metabolic Panel] AM 0400 PT/INR [Prothrombin Time INR] [COAG] AM 0400 07/15/18 04:00 PT/INR [Prothrombin Time INR] [COAG] AM 0400 Date of Encounter: 07/13/18 Time of Encounter: 08:57 - Discharge Diagnosis (1) CHF (congestive heart failure) Priority: Primary Status: Acute Qualifiers: Heart failure type: systolic Heart failure chronicity: acute Qualified Code(s): I50.21 - Acute systolic (congestive) heart failure (2) Atrial fibrillation Priority: Primary Status: Acute Qualifiers: Atrial fibrillation type: unspecified Qualified Code(s): I48.91 - Unspecified atrial fibrillation (3) Morbid obesity with BMI of 45.0-49.9, adult Priority: Secondary Status: Chronic (4) Demand ischemia Priority: Secondary Status: Resolved (5) Hypertension Priority: Secondary Status: Chronic Qualifiers: Hypertension type: essential hypertension Qualified Code(s): I10 - Essential (primary) hypertension (6) CKD (chronic kidney disease) stage 3, GFR 30-59 ml/min Priority: Secondary Status: Suspected Hospital course: Mr. Potter is a 52 year old male with no PMHx presents to ED with a complaint of SOB and palpitations. He reports no PCP and is unsure of his previous medical history. He reported becoming increasingly dyspnic on exertion for the past couple months. He has been experiencing palpitations for about a year but has not seen a doctor about it. He has a family history of AFib in his father. He thinks he may have had HTN for the past couple years which may have been uncontrolled. In the emergency department, vitals were significant for HR in the 130s and EKG confirmed atrial fibrillation. He was started on a cardizem gtt with good control of symptoms and heart rate. Labs showed a BUN/Cr of 32/2.02 with unclear baseline, Hgb A1c of 5.8%, Troponin peak of 0.18, and BNP of 1314. Lipid panel wnl except for HDl of 34. CXR showed evidence cardiomegaly with perihilar interstitial edema. He was admitted for suspected new onset CHF for diuresis as well as rate control of his AFIb. Throughout course of hospital stay, patient gradually improved. He was diuresed with improvement of symptoms. Echocardiogram showed EF of 30-35% with moderately dilated LV, Moderate LVH, indeterminate diastolic dysfunction, mild MR. Cardiology was consulted as well as nephrology. Cardiology performed LHC after optomization of respiratory status with findings of no stenotic lesions. They will follow as outpatient for further workup of etiology including infiltrative disease. Nephrology did optimize kidney function however this appears to be basline and suspect CKD III. He will follow up as outpatient. On day of discharge, his symptoms have improved and he is eager to return home. New meds of metoprolol, coumadin, aspirin, amlodipine, statin. He will be bridged with lovenox and follow up with coumadin clinic. He voices understanding. Discharged in stable medical condition. Discharge discussed with: patient, social work, case management - Time Spent with Patient Total time spent providing and/or coordinating discharge services: Date of admission: 07/07/18 08:01 Primary care physician: PCP NONE Consults: 07/07/18 10:00 Consult to Cio [CONS] Routine Reason for SW Consult: Finances, assistance with care. 07/07/18 15:43 Consult to Cardiology [CONS] Routine Comment: Consulting Provider: Dmitry Hodge Reason for Consult: Echo findings for EF 30%, Severe LVH Call Completed: Yes 07/07/18 16:39 Consult to Nurse Navigator [CONS] Routine Comment: chf 07/08/18 14:45 Consult to Nephrology [CONS] Routine Consulting Provider: Kidney Ayesha/COLETTE/CARINE/LUIS Reason for Consult: ZBIGNIEW v unknwon CKD with new diagnosis A fib and CHF Ef 30% Call Completed: Yes Discharging clinician: Sidney Hannah Anticipated date of discharge: 07/13/18 - Constitutional Vitals: Temp Pulse Resp BP Pulse Ox 98.1 F 82 15 148/119 92 07/13/18 06:37 07/13/18 06:37 07/13/18 06:37 07/13/18 06:37 07/13/18 06:37 General appearance: Present: A&O X 3, answers questions appropriately Exam: Gen.: Vitals noted. No acute distress. AAOx3, sitting up comfortably. HEENT: PERRL/EOMI, oropharynx clear, Normocephalic, atraumatic, MMM Cardiac: Irregularly irregular rhythm, rate controlled. , no murmur, +S1/S2, 2+ BLE edema, R>L improved from previous. Pulmonary: Minimal crackles appreciated at right base, otherwise CTA bilaterally. equal chest expansion, unlabored breathing Abdomen: soft, nontender, BS noted, no guarding, no palpable HSM Skin: warm and dry, no visible lesions. MSK: ROM intact, no joint swelling noted, gait no assessed while in bed. Non tender calf or clubbing Neuro: A&Ox3, moves all extremities, no focal deficits, sensation intact Psych: Appropriate mood and behavior, AOx3 - Patient Status Functional capacity at discharge: independent ambulation Overall status at discharge: patient is progressing back to baseline - Diet and Activity Activity: increase activity as tolerated, resume usual activities as tolerated Diet: advance to your usual diet
[2018-07-13] MEDS ORDERED: amLODIPine 5 MG TABLET PO SCH (09:00)
[2018-07-13] MEDS: Furosemide 40 MG TABLET PO SCH (09:50)
[2018-07-13] MEDS: *HR* Acetylcysteine 20% 600 MG/3 ML ORAL SYRINGE PO SCH (09:50)
[2018-07-13] MEDS: Aspirin Enteric Coated 81 MG Tablet PO SCH (09:50)
[2018-07-13 10:37] VITALS: BP 132/87
--- NOTE | 2018-07-13 11:08 | Cardiology Progress Note ---
Date of Encounter: 07/13/18 Time of Encounter: 11:06 Assessment and Plan (1) CHF (congestive heart failure) Current Visit: Yes Status: Acute Per Cardiology: Presented with CHF symptoms. CXR showed cardiomegaly with edema. EF on echo 30-35%. BNP 1300s. Has been transitioned to PO Lasix 40mg daily. Baseline weight ~ 360 pounds. Current net I&O -[id number] and weight down 26 lbs according to records. On strict I&O, daily weight, 1.5 L fluid restriction. On BB, no ACEI/ARB for now d/t suspected ZBIGNIEW. Underwent LHC yesterday d/t CMP. Minimal CAD, no intervention. Right radial access site healing well. No bleeding, hematoma or ecchymosis noted. Rest rictions discussed. On ASA, Statin, BB. Cardiology signing off. Reconsult PRN. Will coordinate outpt follow-up in 2 weeks. Qualifiers: Heart failure type: systolic Heart failure chronicity: acute Qualified Code(s): I50.21 - Acute systolic (congestive) heart failure (2) Atrial fibrillation Current Visit: Yes Status: Chronic Per Cardiology: ECG showed A. fib in the 130s. Avg HR past 12 hrs 78, afib. Cardizem drip off-- recommend avoiding calcium channel gurmeet with EF of 30-35%. On BB; continue with rate control strategy for now. Regarding long-term anticoagulation, [id number] = at least a 2 (HTN, CHF). Continue heparin drip while inpt. Notes reviewed from yesterday and pt is agreeable to Coumadin, started last night with dosing per pharmacy inpt. INR 1.2 today. Will send outpt referral to [facility] for management. Qualifiers: Atrial fibrillation type: persistent Qualified Code(s): I48.1 - Persistent atrial fibrillation (3) CKD (chronic kidney disease) stage 3, GFR 30-59 ml/min Current Visit: Yes Status: Suspected Per Cardiology: ZBIGNIEW vs CKD. Nephrology following-- appears to be ZBIGNIEW. No ACEi/ARB currently. Discussion w patient/family: The assessment and plan as outlined above was discussed with the patient and/or family members who expressed understanding and agreement. All questions were answered. Thank you for involving us in the care of your patient. Please call with any questions. I will discuss all the above with Dr. Ch and make changes as necessary. Subjective Principal diagnosis: CHF, Afib, CMP Interval history: No acute complaints this AM. Dyspnea has improved. [facility] yesterday with minimal CAD, no intervention. Objective Vital Signs, Last 4 Hours Temp Pulse Resp BP Pulse Ox 07/13/18 09:30 98.4 F 89 15 132/87 94 Vital Signs Temp Pulse Resp BP Pulse Ox 07/13/18 09:30 98.4 F 89 15 132/87 94 07/13/18 06:37 98.1 F 82 15 148/119 92 07/13/18 03:17 97.7 F 73 16 158/98 95 07/12/18 23:01 97.6 F 82 16 155/96 94 07/12/18 18:48 98.1 F 94 18 136/85 94 07/12/18 14:58 97.9 F 79 16 146/99 93 Intake and Output 07/12/18 07/13/18 07/13/18 23:59 07:59 15:59 Intake Total 900 / 900 230 / 230 480 / 480 Output Total 1875 / 1875 925 / 925 0 / 0 Balance -975 / -975 -695 / -695 480 / 480 Intake: IV Fluids 230 / 230 Heparin 25,000 UNIT/250 ML D5W 230 / 230 25,000 unit In 250 ml @ 14 UNIT /KG/HR 23.422 mls/hr IVC . [id number] [facility] Rx#:[id number] Oral 900 / 900 0 / 0 480 / 480 Output: Urine 1875 / 1875 925 / 925 0 / 0 Other: Meal Dinner Breakfast Percent of Meal Consumed 100% 100% Weight 168 kg Patient Weight 07/13/18 23:59 Weight 168 kg General: Conversant, No Apparent Distress HEENT: Atraumatic, Normocephaly, Mucus Membranes Moist Neck: No JVD, Normal carotid pulses Cardiac: Other (irregularly irregular) Lungs: Normal Breath Sounds, No Wheeze, Rales, Rhonchi Neuro: Alert and responsive, No focal deficits noted Abdomen: Soft, Non-Tender Skin: Other (right radial access site healing well. No bleeding, hematoma or ecchymosis noted.) Musculoskeletal: No Chest Wall Tenderness Extremities: No Clubbing, No Cyanosis, No Edema, Normal Pulses Results 07/12/18 11:15 07/13/18 05:30 Lab Results 07/12/18 07/12/18 07/13/18 11:15 11:15 05:30 WBC 5.7 Hgb 13.3 Hct 41.1 Plt Count 238 INR 1.1 Sodium 144 Potassium 3.7 Chloride 105 Carbon Dioxide 30 H BUN 27 H Creatinine 2.00 H Glucose 109 H Calcium 9.5 07/13/18 05:30 WBC Hgb Hct Plt Count INR 1.2 Sodium Potassium Chloride Carbon Dioxide BUN Creatinine Glucose Calcium Short CBC 07/12/18 Range/Units 11:15 WBC 5.7 (4.3-11.1) K/mcL Hgb 13.3 (12.9-16.9) g/dL Hct 41.1 (37.5-50.1) % Plt Count 238 (140-400) K/mcL BMP 07/13/18 Range/Units 05:30 Sodium 144 (136-145) mEq/L Potassium 3.7 (3.5-5.1) mEq/L Chloride 105 (98-107) mEq/L Carbon Dioxide 30 H (23-29) mEq/L BUN 27 H (6-20) mg/dL Creatinine 2.00 H (0.70-1.30) mg/dL Glucose 109 H (70-105) mg/dL Calcium 9.5 (8.6-10.3) mg/dL Active Medications Al Hydrox/Mg Hydrox/Simethicone (Maalox) 15 ml PO Q6HR PRN PRN Reason: Dyspepsia Stop: 01/06/19 08:02 Amlodipine Besylate (Norvasc) 5 mg PO DAILY [facility]; Protocol Stop: 01/12/19 09:01 Last Admin: 07/13/18 09:50 Dose: 5 mg Aspirin (Aspirin Ec) 81 mg PO DAILY [facility] Stop: 01/07/19 11:01 Last Admin: 07/13/18 09:50 Dose: 81 mg Atorvastatin Calcium (Lipitor) 20 mg PO HS [facility] Stop: 01/07/19 21:01 Last Admin: 07/12/18 20:35 Dose: 20 mg Carvedilol (Coreg) 25 mg PO BIDWM [facility]; Protocol Stop: 01/09/19 17:01 Last Admin: 07/13/18 06:51 Dose: 25 mg Furosemide (Lasix) 40 mg PO DAILY [facility] Stop: 01/11/19 12:31 Last Admin: 07/13/18 09:50 Dose: 40 mg Heparin Sodium (Porcine) (Heparin) 9,000 unit IVP Q6HR PRN PRN Reason: SEE COMMENTS Stop: 01/11/19 11:01 Heparin Sodium (Porcine) (Heparin) 4,500 unit IVP Q6H PRN PRN Reason: SEE COMMENTS Stop: 01/11/19 11:01 Heparin Sodium/Dextrose (Heparin 25,000 Unit/250 Ml D5w) 25,000 unit in 250 mls @ 23.422 mls/hr IVC .[id number] [facility]; Protocol Stop: 01/11/19 11:01 Last Admin: 07/13/18 03:13 Dose: 10.22 unit/kg/hr, 17.1 mls/hr Magnesium Hydroxide (Milk Of Magnesia Conc) 10 ml PO DAILY PRN PRN Reason: Constipation Stop: 01/06/19 08:02 Metoprolol Tartrate (Lopressor) 5 mg IVP Q6HR PRN PRN Reason: Blood Pressure - High Stop: 01/07/19 15:31 Last Admin: 07/10/18 05:17 Dose: 5 mg Naloxone HCl (Narcan) 0.4 mg IVP Q2M PRN PRN Reason: SEE COMMENTS Stop: 01/06/19 08:02 Ondansetron HCl (Zofran) 4 mg IVP Q8HR PRN PRN Reason: Nausea And Vomiting Stop: 01/06/19 08:02 Warfarin Sodium (Coumadin Perpt) 1 each PO DAILY@1800 PRN PRN Reason: SEE COMMENTS Stop: 01/11/19 18:01 Warfarin Sodium (Coumadin) 5 mg PO DAILY@1800 [facility] Stop: 01/11/19 18:01 Last Admin: 07/12/18 18:49 Dose: 5 mg - Imaging and Cardiology Echo: report reviewed Cardiac cath: report reviewed - EKG Interpretation EKG results cardiology: other (12 hr tele AVG HR 78, A-Fib) Consult Discharge Plan - Plan Additional Instructions: RISK FACTORS: STOP SMOKING: If you smoke, STOP. Smoking or tobacco use significantly increases your risk of heart disease because nicotine causes the arteries to narrow or constrict. It also causes fats to stick to the artery. Your chances of having a heart attack are greatly increased if you continue to smoke. For more information, call the education line for smoking cessation 7-918-MQPNWRA EAT A LOW FAT/CHOLESTEROL/SODIUM DIET: This diet may help reduce your chances of having a heart attack. LIFTING: With affected extremity: Avoid bending, pushing off and lifting more than 2 pounds for 24 hours The following 48 hours, avoid lifting anything more than 5 pounds Avoid strenuous activity or repetitive motions ACTIVITY: You may walk or climb stairs as tolerated You can resume sexual activity as tolerated In general, you are encouraged to engage in a minimum of 30 minutes or more of moderate intensity physical activity, such as brisk walking, daily or at least 3-4 times weekly BATHING Do not submerge the site into water (bath tub, hot tub, swimming pool, dishes) for 1 week. This can be a source for infection into the blood stream. You may shower after 24 hours SITE CARE: After 24 hours, you may remove the dressing and leave the site open to air. Keep the site clean and dry. Clean gently and pat dry. You can expect bruising and tenderness that gradually resolve within a week or two. Return to work as instructed per your physician Resume driving as instructed per physician Keep all scheduled follow up appointments Resume medications as instructed IMPORTANT: If prescribed a Platelet Aggregation Inhibitor such as, Plavix, Brilinta or Effient: Duration of therapy is minimum one year These medications are often used in combination with Aspirin in prevention of future heart attacks Never discontinue unless consult with your Desktop Support Engineer STROKE (CVA) Risk factors for a stroke are: Age, cigarette smoking, diabetes, excessive alcohol consumption, family history, high blood pressure, overweight, physical inactivity, prior stroke, heart attack, diagnosis of carotid artery stenosis or other artery disease. Warning signs: Sudden numbness or weakness of the face, arm or leg; especially on one side of the body, sudden confusion, trouble speaking or understanding, sudden trouble seeing in one or both eyes, sudden trouble walking, dizziness, loss of balance or coordination, sudden severe headache with no cause. Call 911 or go to the Emergency Room. CONGESTIVE HEART FAILURE: If you have been diagnosed with Congestive Heart Failure (CHF) and your symptoms return, make an appointment with your physician Weigh yourself daily. Notify your physician if you have a weight gain of two or more pounds in one day or five or more pounds in one week. If you experience any difficulty breathing, please call 911 BLEEDING: Although the risk of bleeding is minimal, it can happen. If you have any bleeding from the site, apply firm pressure above the puncture site for 10-15 minutes. If the bleeding does not stop, continue manual pressure and call 911 Contact [facility] ( ) if: You develop a fever greater than 101 degrees Fahrenheit Your site becomes reddened or has any drainage You have an increase in pain or burning at the site or if a large knot forms at the site. If you experience chest pain, shortness of breath, dizziness, or extreme tiredness, stop the activity and rest. Please notify [facility] office if you experience any of these symptoms and they are not relieved by rest please call 911! Referrals: [facility] [Outside] NONE,PCP [Primary Care Provider] - Prescriptions: amLODIPine [Norvasc] 5 mg PO DAILY #30 tablet Aspirin Enteric Coated [Aspirin EC] 81 mg PO DAILY #30 tablet. Atorvastatin [Lipitor] 20 mg PO HS #30 tablet Carvedilol [Coreg] 25 mg PO BIDWM #60 tablet Furosemide [Lasix] 40 mg PO DAILY #30 tablet Warfarin [Coumadin] 5 mg PO DAILY@1800 30 Days #30 tablet
[2018-07-13] MEDS ORDERED: *HR* Enoxaparin 150 MG/ML SYRINGE SQ ONE (13:25)
--- NOTE | 2018-07-13 23:59 | Nephrology Progress Note ---
Date of Encounter: 07/13/18 Time of Encounter: 12:00 - Assessment and Plan (1) Elevated serum creatinine Status: Acute SCr remains stable and slightly better at 2.0, GFR 35, s/p LHC yesterday Agree with discharged today if planned by primary team with po Diuretics Will need followup with nephrology within 4 weeks, BMP within 1 week Lifestyle modification advised (2) Atrial fibrillation with RVR Status: Acute per cardio (3) CHF (congestive heart failure) Status: Acute Continue fluid restriction Continue strict I/Os s/p LHC with mild CAD, amyloidosis to be considered Qualifiers: Heart failure type: systolic Heart failure chronicity: acute Qualified Code(s): I50.21 - Acute systolic (congestive) heart failure Subjective Principal diagnosis: CHF, Afib, CMP Interval history: Interim noted s/p LHC with mild CAD noted, amyloidosis to be considered. Pt seen and examined with at bedside with no complaints but eager to go home. UOP noted approx. 3650cc in the past 24hrs Objective - Vital Signs Vital signs: Vital Signs Temp Pulse Resp BP Pulse Ox 07/13/18 09:30 98.4 F 89 15 132/87 94 07/13/18 06:37 98.1 F 82 15 148/119 92 07/13/18 03:17 97.7 F 73 16 158/98 95 Intake and Output 07/13/18 07/13/18 07/13/18 07:59 15:59 23:59 Intake Total 230 / 230 640.5 / 640.5 Output Total 925 / 925 450 / 450 Balance -695 / -695 190.5 / 190.5 Intake: IV Fluids 230 / 230 160.5 / 160.5 Heparin 25,000 UNIT/250 ML D5W 230 / 230 160.5 / 160.5 25,000 unit In 250 ml @ 14 UNIT /KG/HR 23.422 mls/hr IVC . [id number] [facility] Rx#:[id number] Oral 0 / 0 480 / 480 Output: Urine 925 / 925 450 / 450 Other: Meal Lunch Percent of Meal Consumed 100% Weight 168 kg Patient Weight 07/13/18 23:59 Weight 168 kg - General Appearance General appearance: Present: well-developed, well-nourished, obese EENT: Present: ATNC, mucous membranes moist Neck: Present: no JVD, supple Respiratory: Present: clear Cardiology: Present: edema (Improving LE bilat), normal S1, normal S2 Gastrointestinal: Present: no tenderness, no guarding, obese Integumentary: Present: warm and dry Neurologic: Present: no focal deficit Musculoskeletal: Present: no deformities Psychiatric: Present: mood/affect appropriate, cooperative - Lab 07/12/18 11:15 07/13/18 05:30 Most recent lab results Calcium 9.5 mg/dL (8.6-10.3) 07/13/18 05:30 Magnesium 2.2 mg/dL (1.6-2.6) 07/08/18 05:52 Urine Creatinine 74 mg/dL 07/09/18 15:41 Ur Total Protein 24 Hr 835 mg/day (50-80) H 07/09/18 15:41 Urine Sodium 41.6 mEq/L 07/09/18 15:41 Urine Total Protein 29 mg/dL (1-14) H 07/09/18 15:41 Consult Discharge Plan - Plan Instructions: Atrial Fibrillation (DC) Additional Instructions: RISK FACTORS: STOP SMOKING: If you smoke, STOP. Smoking or tobacco use significantly increases your risk of heart disease because nicotine causes the arteries to narrow or constrict. It also causes fats to stick to the artery. Your chances of having a heart attack are greatly increased if you continue to smoke. For more information, call the education line for smoking cessation 7-009-DQYWAHG EAT A LOW FAT/CHOLESTEROL/SODIUM DIET: This diet may help reduce your chances of having a heart attack. LIFTING: With affected extremity: Avoid bending, pushing off and lifting more than 2 pounds for 24 hours The following 48 hours, avoid lifting anything more than 5 pounds Avoid strenuous activity or repetitive motions ACTIVITY: You may walk or climb stairs as tolerated You can resume sexual activity as tolerated In general, you are encouraged to engage in a minimum of 30 minutes or more of moderate intensity physical activity, such as brisk walking, daily or at least 3-4 times weekly BATHING Do not submerge the site into water (bath tub, hot tub, swimming pool, dishes) for 1 week. This can be a source for infection into the blood stream. You may shower after 24 hours SITE CARE: After 24 hours, you may remove the dressing and leave the site open to air. Keep the site clean and dry. Clean gently and pat dry. You can expect bruising and tenderness that gradually resolve within a week or two. Return to work as instructed per your physician Resume driving as instructed per physician Keep all scheduled follow up appointments Resume medications as instructed IMPORTANT: If prescribed a Platelet Aggregation Inhibitor such as, Plavix, Brilinta or Effient: Duration of therapy is minimum one year These medications are often used in combination with Aspirin in prevention of future heart attacks Never discontinue unless consult with your Local Sales Manager STROKE (CVA) Risk factors for a stroke are: Age, cigarette smoking, diabetes, excessive alcohol consumption, family history, high blood pressure, overweight, physical inactivity, prior stroke, heart attack, diagnosis of carotid artery stenosis or other artery disease. Warning signs: Sudden numbness or weakness of the face, arm or leg; especially on one side of the body, sudden confusion, trouble speaking or understanding, sudden trouble seeing in one or both eyes, sudden trouble walking, dizziness, loss of balance or coordination, sudden severe headache with no cause. Call 911 or go to the Emergency Room. CONGESTIVE HEART FAILURE: If you have been diagnosed with Congestive Heart Failure (CHF) and your symptoms return, make an appointment with your physician Weigh yourself daily. Notify your physician if you have a weight gain of two or more pounds in one day or five or more pounds in one week. If you experience any difficulty breathing, please call 911 BLEEDING: Although the risk of bleeding is minimal, it can happen. If you have any bleeding from the site, apply firm pressure above the puncture site for 10-15 minutes. If the bleeding does not stop, continue manual pressure and call 911 Contact [facility] ( ) if: You develop a fever greater than 101 degrees Fahrenheit Your site becomes reddened or has any drainage You have an increase in pain or burning at the site or if a large knot forms at the site. If you experience chest pain, shortness of breath, dizziness, or extreme tiredness, stop the activity and rest. Please notify [facility] office if you experience any of these symptoms and they are not relieved by rest please call 911! Referrals: Darius Gonzalez, SENIOR LEAD SOFTWARE ENGINEER [Advanced Practice Nurse] - (darius schuster fu outpt) Mike Benitez [Resident] - 07/19/18 2:00 pm Tao Gibbs MD [Partnered Physician] - Prescriptions: Enoxaparin [Lovenox] 150 mg SQ Q12HR 7 Days #14 syr amLODIPine [Norvasc] 5 mg PO DAILY #30 tablet Aspirin Enteric Coated [Aspirin EC] 81 mg PO DAILY #30 tablet. Atorvastatin [Lipitor] 20 mg PO HS #30 tablet Carvedilol [Coreg] 25 mg PO BIDWM #60 tablet Furosemide [Lasix] 40 mg PO DAILY #30 tablet Warfarin [Coumadin] 5 mg PO DAILY@1800 30 Days #30 tablet
== END 2018-07-13 15:50 | disposition home or self-care (01) | DRG 286 ==
LOC: EMEROOARM 02:18 → 2SOUTHHOLD 02:18 → SUATTDRO 06:33 → 2SOUTHHOLD 07:45 → SUATTDRO 08:01 → 3ANU 07-08 13:01
PROVIDERS: ADMIT Internal Medicine; ATTEND Internal Medicine

== ENCOUNTER 2018-11-19 18:35 | Inpatient (IN) ==
[2018-11-19] MEDS ORDERED: Isovue-370 500 ML BOTTLE IVP ONE (18:55)
[2018-11-19 19:06] LABS: Basophils % 0.5 %; Eosinophils # 0.2 K/mcL (0.0-0.6); Eosinophils % 2.7 %; Hematocrit 39.5 % (37.5-50.1); Immature Granulocytes % 0.7 % (0-4); Lymphocytes % 25.1 %; Mean Corpuscular HGB Conc 30.4 g/dL (31.6-35.5); Mean Corpuscular Hemoglobin 30.2 pg (28.0-33.3); Mean Corpuscular Volume 99.5 fL (83.0-100.0); Mean Platelet Volume 9.7 fL (9.4-12.4); Monocytes # 0.8 K/mcL (0.0-1.3); Monocytes % 10.2 %; Neutrophils # 4.9 K/mcL (1.6-8.9); Platelet Count 426 K/mcL (140-400); Red Blood Count 3.97 M/mcL (4.19-5.50); Red Cell Distribution Width 15.7 % (11.5-14.5); Segmented Neutrophils % 60.8 %; White Blood Count 8.1 K/mcL (4.3-11.1)
[2018-11-19 19:23] LABS: Albumin 3.4 g/dL (3.5-5.7); Albumin/Globulin Ratio 0.9 (1.1-2.2); Bilirubin,Total 0.6 mg/dL (0.3-1.0); Calcium 9.7 mg/dL (8.6-10.3); Globulin 3.6 g/dL (2.4-3.5); Potassium 4.1 mEq/L (3.5-5.1)
[2018-11-19] MEDS: DilTIAZem 50 MG in 0.9 % Sodium Chloride 40 ML IVC SCH (19:35)
[2018-11-19] MEDS ORDERED: Piperacillin/Tazobactam 3.375 GM in 0.9 % Sodium Chloride Mini Bag 100 ML IVPB ONE (20:58)
[2018-11-19] MEDS ORDERED: levoFLOXacin 750 MG/150 ML 750 MG/150 ML BAG IVPB ONE (21:00)
[2018-11-19 21:07] LABS: Bilirubin,Urine Negative (Negative); Blood,Urine Moderate (Negative); Clarity,Urine Turbid (Clear); Color,Urine Yellow (Yellow); Glucose,Urine (UA) Normal (Normal); Ketones,Urine Negative (Negative); Leukocyte Esterase,Urine Large (Negative); Nitrite,Urine Positive (Negative); Protein,Urine 30 mg/dL (Neg-Trace); Specific Gravity,Urine 1.012 (1.010-1.025); Urobilinogen,Urine Normal (Normal)
[2018-11-19 21:10] LABS: Bacteria,Urine Moderate per hpf (None-Few); Hyaline Casts,Urine None Seen per lpf (None-Few); Squamous Epithelial Cell,Urine Moderate per lpf (None-Few); WBC,Urine TNTC per hpf (0-3)
[2018-11-19] MEDS ORDERED: 0.9 % Sodium Chloride 1,000 ML IVC ONE (21:20)
[2018-11-19] MEDS ORDERED: Ondansetron 4 MG/2 ML VIAL IVP PRN (23:46)
[2018-11-19] MEDS ORDERED: Naloxone 0.4 MG/ML INJ IVP PRN (23:46)
[2018-11-19] MEDS ORDERED: Acetaminophen 325 MG TABLET PO PRN (23:46)
[2018-11-19] MEDS ORDERED: Docusate Oral Soln 100 MG/10 ML UDC GTUBE PRN (23:56)
[2018-11-19] MEDS ORDERED: Saliva Stimulant 100ml BOTTLE PO PRN (23:56)
[2018-11-20 00:28] LABS: White Blood Count 8.3 K/mcL (4.3-11.1)
[2018-11-20 00:29] LABS: Basophils % 0.5 %; Eosinophils # 0.2 K/mcL (0.0-0.6); Eosinophils % 2.9 %; Hematocrit 38.6 % (37.5-50.1); Immature Granulocytes % 0.7 % (0-4); Lymphocytes # 1.7 K/mcL (0.6-4.6); Mean Corpuscular HGB Conc 31.1 g/dL (31.6-35.5); Mean Corpuscular Hemoglobin 30.5 pg (28.0-33.3); Mean Platelet Volume 9.6 fL (9.4-12.4); Monocytes # 0.6 K/mcL (0.0-1.3); Monocytes % 7.5 %; Neutrophils # 5.6 K/mcL (1.6-8.9); Platelet Count 399 K/mcL (140-400); Red Blood Count 3.94 M/mcL (4.19-5.50); Red Cell Distribution Width 15.7 % (11.5-14.5); Segmented Neutrophils % 67.4 %
[2018-11-20 00:39] LABS: INR 1.3; Prothrombin Time 15.2 Seconds (9.4-12.1)
[2018-11-20] MEDS: MetroNIDAZOLE 500 MG/100 ML 500 MG/100 ML BAG IVPB SCH ×4 (00:39→23:33)
[2018-11-20 00:42] LABS: Activated Partial Thrombo Time 37.1 Seconds (26.0-36.0)
[2018-11-20 00:49] LABS: Albumin 3.5 g/dL (3.5-5.7); Bilirubin,Total 0.7 mg/dL (0.3-1.0); Calcium 9.5 mg/dL (8.6-10.3); Globulin 3.5 g/dL (2.4-3.5); Potassium 3.8 mEq/L (3.5-5.1)
[2018-11-20] MEDS: DilTIAZem 50 MG in 0.9 % Sodium Chloride 40 ML IVC SCH (04:12)
[2018-11-20] MEDS ORDERED: Amantadine Oral Soln 50 MG/5 ML UDC PO SCH (09:00)
[2018-11-20] MEDS: Ondansetron ODT 4 MG TAB.RAPDIS PO SCH ×3 (10:01→17:20)
[2018-11-20] MEDS: Sennosides/Docusate Sodium TABLET PO SCH ×2 (10:02→20:46)
[2018-11-20] MEDS: Famotidine 20 MG TABLET PO SCH ×2 (10:02→17:19)
[2018-11-20] MEDS: Furosemide 20 MG TABLET PO SCH (10:02)
[2018-11-20] MEDS: carvediloL 25 MG TABLET PO SCH ×2 (10:02→17:19)
[2018-11-20] MEDS: Apixaban 5 MG TABLET PO SCH ×2 (10:02→20:45)
[2018-11-20] MEDS: Piperacillin/Tazobactam 3.375 GM in 0.9 % Sodium Chloride Mini Bag 100 ML IVPB SCH ×2 (11:05→20:45)
[2018-11-20] MEDS ORDERED: Perflutren Lipid Microsphere 1.3 ML in 0.9 % Sodium Chloride 8.7 ML IVP ONE (12:41)
[2018-11-21 05:31] LABS: Basophils # 0.1 K/mcL (0.0-0.2); Basophils % 0.6 %; Eosinophils # 0.2 K/mcL (0.0-0.6); Hematocrit 36.3 % (37.5-50.1); Hemoglobin 11.1 g/dL (12.9-16.9); Immature Granulocytes % 0.6 % (0-4); Lymphocytes # 1.7 K/mcL (0.6-4.6); Lymphocytes % 21.8 %; Mean Corpuscular HGB Conc 30.6 g/dL (31.6-35.5); Mean Corpuscular Hemoglobin 30.6 pg (28.0-33.3); Mean Platelet Volume 9.8 fL (9.4-12.4); Monocytes # 0.8 K/mcL (0.0-1.3); Monocytes % 9.9 %; Neutrophils # 5.1 K/mcL (1.6-8.9); Platelet Count 375 K/mcL (140-400); Red Blood Count 3.63 M/mcL (4.19-5.50); Red Cell Distribution Width 15.5 % (11.5-14.5); Segmented Neutrophils % 65.1 %; White Blood Count 7.9 K/mcL (4.3-11.1)
[2018-11-21 05:55] LABS: Calcium 9.7 mg/dL (8.6-10.3); Magnesium 2.1 mg/dL (1.6-2.6); Phosphorous 3.6 mg/dL (2.7-4.5); Potassium 3.6 mEq/L (3.5-5.1)
[2018-11-21] MEDS: Famotidine 20 MG TABLET PO SCH ×2 (09:18→18:09)
[2018-11-21] MEDS: Apixaban 5 MG TABLET PO SCH ×2 (09:18→22:03)
[2018-11-21] MEDS: Piperacillin/Tazobactam 3.375 GM in 0.9 % Sodium Chloride Mini Bag 100 ML IVPB SCH ×2 (09:19→18:10)
[2018-11-21] MEDS: carvediloL 25 MG TABLET PO SCH ×2 (09:19→18:09)
[2018-11-21] MEDS: Ondansetron ODT 4 MG TAB.RAPDIS PO SCH ×3 (09:19→18:09)
[2018-11-21] MEDS: Sennosides/Docusate Sodium TABLET PO SCH ×2 (09:19→22:03)
[2018-11-21] MEDS: Furosemide 20 MG TABLET PO SCH (09:19)
[2018-11-22] MEDS: Piperacillin/Tazobactam 3.375 GM in 0.9 % Sodium Chloride Mini Bag 100 ML IVPB SCH ×3 (00:57→16:49)
[2018-11-22] MEDS: carvediloL 25 MG TABLET PO SCH ×2 (06:23→16:49)
[2018-11-22] MEDS: Apixaban 5 MG TABLET PO SCH ×2 (09:45→20:29)
[2018-11-22] MEDS: Ondansetron ODT 4 MG TAB.RAPDIS PO SCH ×3 (09:45→16:49)
[2018-11-22] MEDS: Sennosides/Docusate Sodium TABLET PO SCH ×2 (09:45→20:29)
[2018-11-22] MEDS: Furosemide 20 MG TABLET PO SCH (09:45)
[2018-11-22] MEDS: Famotidine 20 MG TABLET PO SCH ×2 (09:45→16:49)
[2018-11-22 09:48] LABS: Basophils % 0.6 %; Eosinophils # 0.2 K/mcL (0.0-0.6); Eosinophils % 2.6 %; Hematocrit 36.6 % (37.5-50.1); Hemoglobin 11.6 g/dL (12.9-16.9); Immature Granulocytes % 0.8 % (0-4); Lymphocytes # 1.6 K/mcL (0.6-4.6); Lymphocytes % 23.4 %; Mean Corpuscular HGB Conc 31.7 g/dL (31.6-35.5); Mean Corpuscular Hemoglobin 31.5 pg (28.0-33.3); Mean Corpuscular Volume 99.5 fL (83.0-100.0); Mean Platelet Volume 9.8 fL (9.4-12.4); Monocytes # 0.6 K/mcL (0.0-1.3); Monocytes % 9.2 %; Neutrophils # 4.2 K/mcL (1.6-8.9); Platelet Count 335 K/mcL (140-400); Red Blood Count 3.68 M/mcL (4.19-5.50); Red Cell Distribution Width 15.4 % (11.5-14.5); Segmented Neutrophils % 63.4 %; White Blood Count 6.7 K/mcL (4.3-11.1)
[2018-11-22 10:21] LABS: Calcium 9.7 mg/dL (8.6-10.3); Magnesium 2.1 mg/dL (1.6-2.6); Phosphorous 3.8 mg/dL (2.7-4.5); Potassium 3.6 mEq/L (3.5-5.1)
[2018-11-22] MEDS ORDERED: *HR* Metoprolol 5 MG/5 ML VIAL IVP PRN ×2 (16:37→16:38)
[2018-11-23] MEDS: Piperacillin/Tazobactam 3.375 GM in 0.9 % Sodium Chloride Mini Bag 100 ML IVPB SCH (00:35)
[2018-11-23 06:15] LABS: Basophils # 0.1 K/mcL (0.0-0.2); Basophils % 0.6 %; Eosinophils # 0.2 K/mcL (0.0-0.6); Eosinophils % 2.4 %; Hematocrit 36.6 % (37.5-50.1); Hemoglobin 11.3 g/dL (12.9-16.9); Immature Granulocytes % 0.9 % (0-4); Lymphocytes # 1.6 K/mcL (0.6-4.6); Lymphocytes % 20.4 %; Mean Corpuscular HGB Conc 30.9 g/dL (31.6-35.5); Mean Corpuscular Hemoglobin 30.5 pg (28.0-33.3); Mean Corpuscular Volume 98.9 fL (83.0-100.0); Mean Platelet Volume 9.7 fL (9.4-12.4); Monocytes # 0.9 K/mcL (0.0-1.3); Monocytes % 10.6 %; Neutrophils # 5.3 K/mcL (1.6-8.9); Platelet Count 325 K/mcL (140-400); Red Cell Distribution Width 15.5 % (11.5-14.5); Segmented Neutrophils % 65.1 %; White Blood Count 8.1 K/mcL (4.3-11.1)
[2018-11-23 06:34] LABS: Calcium 9.7 mg/dL (8.6-10.3); Potassium 3.5 mEq/L (3.5-5.1)
[2018-11-23] MEDS: Sennosides/Docusate Sodium TABLET PO SCH ×2 (08:54→21:45)
[2018-11-23] MEDS: Famotidine 20 MG TABLET PO SCH ×2 (08:54→17:30)
[2018-11-23] MEDS: Apixaban 5 MG TABLET PO SCH ×2 (08:54→21:45)
[2018-11-23] MEDS: carvediloL 25 MG TABLET PO SCH ×2 (08:54→17:30)
[2018-11-23] MEDS: Furosemide 20 MG TABLET PO SCH (08:55)
[2018-11-23] MEDS: Ondansetron ODT 4 MG TAB.RAPDIS PO SCH ×3 (08:55→17:30)
[2018-11-23] MEDS ORDERED: 0.9 % Sodium Chloride 500 ML IVC ONE (13:10)
[2018-11-24 05:19] LABS: Basophils # 0.1 K/mcL (0.0-0.2); Basophils % 0.8 %; Eosinophils # 0.2 K/mcL (0.0-0.6); Eosinophils % 2.1 %; Hematocrit 35.9 % (37.5-50.1); Hemoglobin 11.2 g/dL (12.9-16.9); Immature Granulocytes % 1.1 % (0-4); Lymphocytes # 1.8 K/mcL (0.6-4.6); Lymphocytes % 23.7 %; Mean Corpuscular HGB Conc 31.2 g/dL (31.6-35.5); Mean Corpuscular Hemoglobin 30.9 pg (28.0-33.3); Mean Corpuscular Volume 98.9 fL (83.0-100.0); Mean Platelet Volume 10.2 fL (9.4-12.4); Monocytes # 0.7 K/mcL (0.0-1.3); Monocytes % 9.6 %; Neutrophils # 4.7 K/mcL (1.6-8.9); Platelet Count 322 K/mcL (140-400); Red Blood Count 3.63 M/mcL (4.19-5.50); Red Cell Distribution Width 15.3 % (11.5-14.5); Segmented Neutrophils % 62.7 %; White Blood Count 7.5 K/mcL (4.3-11.1)
[2018-11-24 05:35] LABS: Calcium 9.7 mg/dL (8.6-10.3); Potassium 3.3 mEq/L (3.5-5.1)
[2018-11-24] MEDS: Sennosides/Docusate Sodium TABLET PO SCH ×2 (09:15→21:27)
[2018-11-24] MEDS: Furosemide 20 MG TABLET PO SCH (09:16)
[2018-11-24] MEDS: Apixaban 5 MG TABLET PO SCH ×2 (09:16→21:27)
[2018-11-24] MEDS: Famotidine 20 MG TABLET PO SCH ×2 (09:16→17:18)
[2018-11-24] MEDS: carvediloL 25 MG TABLET PO SCH ×2 (09:16→17:18)
[2018-11-24] MEDS: Ondansetron ODT 4 MG TAB.RAPDIS PO SCH ×3 (09:17→17:18)
[2018-11-25] MEDS: Furosemide 20 MG TABLET PO SCH (09:46)
[2018-11-25] MEDS: Apixaban 5 MG TABLET PO SCH ×2 (09:46→20:32)
[2018-11-25] MEDS: carvediloL 25 MG TABLET PO SCH ×2 (09:46→16:38)
[2018-11-25] MEDS: Sennosides/Docusate Sodium TABLET PO SCH ×2 (09:47→20:32)
[2018-11-25] MEDS: Famotidine 20 MG TABLET PO SCH ×2 (09:47→16:37)
[2018-11-25] MEDS: Ondansetron ODT 4 MG TAB.RAPDIS PO SCH ×3 (10:09→16:39)
[2018-11-25] MEDS ORDERED: Ipratropium/Albuterol Neb 3 ML IH ONE (11:03)
[2018-11-26] MEDS: Furosemide 20 MG TABLET PO SCH (09:17)
[2018-11-26] MEDS: Sennosides/Docusate Sodium TABLET PO SCH ×2 (09:17→22:14)
[2018-11-26] MEDS: carvediloL 25 MG TABLET PO SCH ×2 (09:17→17:29)
[2018-11-26] MEDS: Apixaban 5 MG TABLET PO SCH ×2 (09:17→22:14)
[2018-11-26] MEDS: Famotidine 20 MG TABLET PO SCH ×2 (09:17→17:29)
[2018-11-26] MEDS: Ondansetron ODT 4 MG TAB.RAPDIS PO SCH ×3 (09:17→17:29)
[2018-11-27 08:59] LABS: Hematocrit 37.3 % (37.5-50.1); Hemoglobin 11.9 g/dL (12.9-16.9); Mean Corpuscular HGB Conc 31.9 g/dL (31.6-35.5); Mean Corpuscular Volume 97.1 fL (83.0-100.0); Mean Platelet Volume 10.2 fL (9.4-12.4); Platelet Count 262 K/mcL (140-400); Red Blood Count 3.84 M/mcL (4.19-5.50); Red Cell Distribution Width 15.2 % (11.5-14.5); White Blood Count 6.7 K/mcL (4.3-11.1)
[2018-11-27] MEDS ORDERED: Furosemide 20 MG TABLET PO SCH (09:00)
[2018-11-27 09:21] LABS: Calcium 9.7 mg/dL (8.6-10.3); Magnesium 2.1 mg/dL (1.6-2.6); Potassium 3.5 mEq/L (3.5-5.1)
[2018-11-27] MEDS: Famotidine 20 MG TABLET PO SCH ×2 (10:08→16:46)
[2018-11-27] MEDS: Sennosides/Docusate Sodium TABLET PO SCH ×2 (10:08→22:19)
[2018-11-27] MEDS: carvediloL 25 MG TABLET PO SCH ×2 (10:08→16:46)
[2018-11-27] MEDS: Apixaban 5 MG TABLET PO SCH ×2 (10:08→22:19)
[2018-11-27] MEDS: Furosemide 20 MG TABLET PO SCH (10:09)
[2018-11-27] MEDS: Ondansetron ODT 4 MG TAB.RAPDIS PO SCH ×3 (10:40→16:46)
[2018-11-28] MEDS: Apixaban 5 MG TABLET PO SCH ×2 (09:42→23:18)
[2018-11-28] MEDS: carvediloL 25 MG TABLET PO SCH ×2 (09:42→17:10)
[2018-11-28] MEDS: Furosemide 20 MG TABLET PO SCH (09:43)
[2018-11-28] MEDS: Famotidine 20 MG TABLET PO SCH ×2 (09:43→17:11)
[2018-11-28] MEDS: Ondansetron ODT 4 MG TAB.RAPDIS PO SCH ×3 (09:43→17:10)
[2018-11-28] MEDS: Sennosides/Docusate Sodium TABLET PO SCH ×2 (09:43→23:18)
[2018-11-29] MEDS: Sennosides/Docusate Sodium TABLET PO SCH ×2 (09:31→21:05)
[2018-11-29] MEDS: Apixaban 5 MG TABLET PO SCH ×2 (09:31→21:05)
[2018-11-29] MEDS: Famotidine 20 MG TABLET PO SCH ×2 (09:31→16:48)
[2018-11-29] MEDS: Furosemide 20 MG TABLET PO SCH (09:31)
[2018-11-29] MEDS: Ondansetron ODT 4 MG TAB.RAPDIS PO SCH ×3 (09:31→16:48)
[2018-11-29] MEDS: carvediloL 25 MG TABLET PO SCH ×2 (09:31→16:48)
[2018-11-30] MEDS: Furosemide 20 MG TABLET PO SCH (09:15)
[2018-11-30] MEDS: Ondansetron ODT 4 MG TAB.RAPDIS PO SCH ×3 (09:15→17:10)
[2018-11-30] MEDS: carvediloL 25 MG TABLET PO SCH ×2 (09:15→17:09)
[2018-11-30] MEDS: Sennosides/Docusate Sodium TABLET PO SCH ×2 (09:15→22:12)
[2018-11-30] MEDS: Apixaban 5 MG TABLET PO SCH ×2 (09:15→22:12)
[2018-11-30] MEDS: Famotidine 20 MG TABLET PO SCH ×2 (09:15→17:09)
[2018-12-01] MEDS: Sennosides/Docusate Sodium TABLET PO SCH ×2 (08:24→20:28)
[2018-12-01] MEDS: Ondansetron ODT 4 MG TAB.RAPDIS PO SCH ×3 (08:24→17:32)
[2018-12-01] MEDS: Apixaban 5 MG TABLET PO SCH ×2 (08:24→20:29)
[2018-12-01] MEDS: carvediloL 25 MG TABLET PO SCH ×2 (08:24→17:32)
[2018-12-01] MEDS: Famotidine 20 MG TABLET PO SCH ×2 (08:24→17:32)
[2018-12-01] MEDS: Furosemide 20 MG TABLET PO SCH (08:24)
[2018-12-01] MEDS: amLODIPine 5 MG TABLET PO SCH (13:33)
[2018-12-02] MEDS: Apixaban 5 MG TABLET PO SCH ×2 (09:14→21:26)
[2018-12-02] MEDS: Ondansetron ODT 4 MG TAB.RAPDIS PO SCH ×3 (09:14→17:40)
[2018-12-02] MEDS: amLODIPine 5 MG TABLET PO SCH (09:14)
[2018-12-02] MEDS: Famotidine 20 MG TABLET PO SCH ×2 (09:15→17:40)
[2018-12-02] MEDS: carvediloL 25 MG TABLET PO SCH ×2 (09:15→17:40)
[2018-12-02] MEDS: Furosemide 20 MG TABLET PO SCH (09:15)
[2018-12-02] MEDS: Sennosides/Docusate Sodium TABLET PO SCH ×2 (09:15→21:26)
[2018-12-03] MEDS: carvediloL 25 MG TABLET PO SCH ×2 (08:43→16:59)
[2018-12-03] MEDS: Apixaban 5 MG TABLET PO SCH ×2 (08:43→22:07)
[2018-12-03] MEDS: Sennosides/Docusate Sodium TABLET PO SCH ×2 (08:44→22:08)
[2018-12-03] MEDS: Furosemide 20 MG TABLET PO SCH (08:44)
[2018-12-03] MEDS: Ondansetron ODT 4 MG TAB.RAPDIS PO SCH ×3 (08:44→17:01)
[2018-12-03] MEDS: Famotidine 20 MG TABLET PO SCH ×2 (08:44→17:00)
[2018-12-03] MEDS: amLODIPine 5 MG TABLET PO SCH (08:44)
[2018-12-04] MEDS: Apixaban 5 MG TABLET PO SCH ×2 (09:05→22:01)
[2018-12-04] MEDS: amLODIPine 5 MG TABLET PO SCH (09:05)
[2018-12-04] MEDS: Furosemide 20 MG TABLET PO SCH (09:05)
[2018-12-04] MEDS: Sennosides/Docusate Sodium TABLET PO SCH ×2 (09:06→22:01)
[2018-12-04] MEDS: carvediloL 25 MG TABLET PO SCH ×2 (09:07→15:11)
[2018-12-04] MEDS: Famotidine 20 MG TABLET PO SCH ×2 (09:07→15:11)
[2018-12-04] MEDS: Ondansetron ODT 4 MG TAB.RAPDIS PO SCH ×3 (09:07→15:11)
[2018-12-04 17:33] LABS: Bilirubin,Urine Negative (Negative); Blood,Urine Large (Negative); Clarity,Urine Cloudy (Clear); Color,Urine Yellow (Yellow); Glucose,Urine (UA) Normal (Normal); Ketones,Urine Negative (Negative); Leukocyte Esterase,Urine Large (Negative); Nitrite,Urine Negative (Negative); PH,Urine 6.5 pH Units (5.0-8.0); Protein,Urine 100 mg/dL (Neg-Trace); Specific Gravity,Urine 1.019 (1.010-1.025); Urobilinogen,Urine Normal (Normal)
[2018-12-04 17:38] LABS: Bacteria,Urine Few per hpf (None-Few); Hyaline Casts,Urine None Seen per lpf (None-Few); RBC,Urine TNTC per hpf (0-3); Squamous Epithelial Cell,Urine None Seen per lpf (None-Few); WBC,Urine TNTC per hpf (0-3)
[2018-12-05] MEDS: Nystatin Cream 15 GM TUBE TP PRN (00:47)
[2018-12-05 00:51] LABS: Hematocrit 37.7 % (37.5-50.1); Hemoglobin 11.9 g/dL (12.9-16.9); Mean Corpuscular HGB Conc 31.6 g/dL (31.6-35.5); Mean Corpuscular Hemoglobin 30.7 pg (28.0-33.3); Mean Corpuscular Volume 97.4 fL (83.0-100.0); Mean Platelet Volume 10.6 fL (9.4-12.4); Platelet Count 246 K/mcL (140-400); Red Blood Count 3.87 M/mcL (4.19-5.50); Red Cell Distribution Width 15.2 % (11.5-14.5); White Blood Count 6.5 K/mcL (4.3-11.1)
[2018-12-05 01:07] LABS: Magnesium 2.2 mg/dL (1.6-2.6); Potassium 3.5 mEq/L (3.5-5.1)
[2018-12-05] MEDS: Apixaban 5 MG TABLET PO SCH ×2 (09:47→21:03)
[2018-12-05] MEDS: Furosemide 20 MG TABLET PO SCH (09:47)
[2018-12-05] MEDS: Sennosides/Docusate Sodium TABLET PO SCH ×2 (09:48→21:03)
[2018-12-05] MEDS: carvediloL 25 MG TABLET PO SCH ×2 (09:48→16:33)
[2018-12-05] MEDS: Famotidine 20 MG TABLET PO SCH ×2 (09:48→16:33)
[2018-12-05] MEDS: Ondansetron ODT 4 MG TAB.RAPDIS PO SCH ×3 (09:48→16:33)
[2018-12-05] MEDS: amLODIPine 5 MG TABLET PO SCH (09:49)
[2018-12-06] MEDS: Nystatin Cream 15 GM TUBE TP PRN (01:35)
[2018-12-06 06:52] VITALS: BP 127/92
[2018-12-06] MEDS: carvediloL 25 MG TABLET PO SCH (10:04)
[2018-12-06] MEDS: Sennosides/Docusate Sodium TABLET PO SCH (10:05)
[2018-12-06] MEDS: Famotidine 20 MG TABLET PO SCH (10:05)
[2018-12-06] MEDS: amLODIPine 5 MG TABLET PO SCH (10:05)
[2018-12-06] MEDS: Furosemide 20 MG TABLET PO SCH (10:05)
[2018-12-06] MEDS: Apixaban 5 MG TABLET PO SCH (10:05)
[2018-12-06] MEDS: Ondansetron ODT 4 MG TAB.RAPDIS PO SCH ×2 (10:09→13:53)
== END 2018-12-06 15:46 | DRG 466 ==
LOC: EMEROOARM 18:35 → 2NENU 18:35 → SUATTDRO 22:26 → 2NENU 23:32
PROVIDERS: ADMIT Family Medicine; ATTEND Internal Medicine

== ENCOUNTER 2020-08-25 11:35 | Inpatient (IN) ==
[2020-08-25] MEDS ORDERED: 0.9 % Sodium Chloride 1,000 ML IVC ONE (11:46)
[2020-08-25 12:18] LABS: Basophils % 0.7 %; Eosinophils # 0.1 K/mcL (0.0-0.6); Eosinophils % 1.3 %; Hematocrit 44.2 % (37.5-50.1); Hemoglobin 13.8 g/dL (12.9-16.9); Immature Granulocytes % 0.7 % (0-4); Lymphocytes # 1.4 K/mcL (0.6-4.6); Mean Corpuscular HGB Conc 31.2 g/dL (31.6-35.5); Mean Corpuscular Hemoglobin 30.3 pg (28.0-33.3); Mean Corpuscular Volume 97.1 fL (83.0-100.0); Mean Platelet Volume 10.4 fL (9.4-12.4); Monocytes # 0.6 K/mcL (0.0-1.3); Monocytes % 10.3 %; Neutrophils # 3.9 K/mcL (1.6-8.9); Platelet Count 200 K/mcL (140-400); Red Blood Count 4.55 M/mcL (4.19-5.50); Red Cell Distribution Width 16.4 % (11.5-14.5)
[2020-08-25 12:26] LABS: INR 1.6; Prothrombin Time 18.1 Seconds (9.4-12.1)
[2020-08-25 12:29] LABS: Activated Partial Thrombo Time 36.9 Seconds (26.0-36.0)
[2020-08-25 12:35] LABS: Alanine Aminotransferase 20 Units/L (7-52); Albumin 3.7 g/dL (3.5-5.7); Albumin/Globulin Ratio 1.1 (1.1-2.2); Alkaline Phosphatase 137 Units/L (34-104); Aspartate Amino Transferase 15 Units/L (13-39); BUN/Creatinine Ratio 16 (6-26); Bilirubin,Total 0.7 mg/dL (0.3-1.0); Blood Urea Nitrogen 33 mg/dL (6-20); Calcium 9.3 mg/dL (8.6-10.3); Carbon Dioxide 30 mEq/L (23-29); Chloride 106 mEq/L (98-107); Globulin 3.5 g/dL (2.4-3.5); Glucose 98 mg/dL (70-105); Osmolality,Calculated 303 (280-300); Potassium 4.5 mEq/L (3.5-5.1); Sodium 143 mEq/L (136-145); Total Protein 7.2 g/dL (6.4-8.9); Troponin I < 0.03 ng/mL (< 0.04); eGFR For African Americans 40 (> 60); eGFR For Non-African Americans 33 (> 60)
[2020-08-25 13:12] LABS: Bacteria,Urine Few per hpf (None-Few); Bilirubin,Urine Negative (Negative); Blood,Urine Large (Negative); Clarity,Urine Clear (Clear); Color,Urine Light-Yellow (Yellow); Glucose,Urine (UA) Normal (Normal); Ketones,Urine Negative (Negative); Leukocyte Esterase,Urine Small (Negative); Mucus,Urine Few per lpf (None-Few); Nitrite,Urine Negative (Negative); PH,Urine 6.5 pH Units (5.0-8.0); Protein,Urine 30 mg/dL (Neg-Trace); RBC,Urine 50-100 per hpf (0-3); Specific Gravity,Urine 1.011 (1.010-1.025); Squamous Epithelial Cell,Urine Few per hpf (None-Few); Urobilinogen,Urine Normal (Normal)
[2020-08-25] MEDS ORDERED: Naloxone 0.4 MG/ML INJ IVP PRN (14:27)
[2020-08-25] MEDS ORDERED: Perflutren Lipid Microsphere 1.3 ML in 0.9 % Sodium Chloride 8.7 ML IVP PRN (14:28)
[2020-08-25] MEDS ORDERED: Acetaminophen 325 MG TABLET PO PRN (14:29)
[2020-08-25] MEDS ORDERED: Saliva Stimulant 44.3ml BOTTLE PO PRN (14:29)
[2020-08-25] MEDS ORDERED: Ondansetron ODT 4 MG TAB.RAPDIS PO PRN (14:35)
[2020-08-25] MEDS: Azithromycin 250 MG TABLET PO SCH (14:52)
[2020-08-25] MEDS: 0.9 % Sodium Chloride 1,000 ML IVC SCH (14:52)
[2020-08-25 18:58] LABS: Adenovirus Not Detected (Not Detect); Coronavirus 229E Not Detected (Not Detect); Coronavirus HKU1 Not Detected (Not Detect); Coronavirus NL63 Not Detected (Not Detect); Coronavirus OC43 Not Detected (Not Detect); Human Metapneumovirus Not Detected (Not Detect); Human Rhinovirus/Enterovirus Not Detected (Not Detect)
[2020-08-25 18:59] LABS: Bordetella Pertussis Not Detected (Not Detect); Chlamydophila pneumoniae Not Detected (Not Detect); Influenza A Subtype 2009 H1 Not Detected (Not Detect); Influenza B Not Detected (Not Detect); Mycoplasma pneumoniae Not Detected (Not Detect); Parainfluenza Virus 1 Not Detected (Not Detect); Parainfluenza Virus 2 Not Detected (Not Detect); Parainfluenza Virus 3 Not Detected (Not Detect); Parainfluenza Virus 4 Not Detected (Not Detect); Respiratory Syncytial Virus Not Detected (Not Detect)
[2020-08-25] MEDS: Apixaban 5 MG TABLET PO SCH (20:21)
[2020-08-25] MEDS: Docusate Oral Soln 100 MG/10 ML UDC PO SCH (20:21)
[2020-08-25] MEDS: Amantadine Oral Soln 50 MG/5 ML UDC PO SCH (20:21)
[2020-08-25] MEDS: levETIRAcetam 250 MG TABLET PO SCH (20:21)
[2020-08-25] MEDS: Sennosides/Docusate Sodium TABLET PO SCH (20:21)
[2020-08-26 02:02] LABS: Basophils % 0.5 %; Eosinophils # 0.1 K/mcL (0.0-0.6); Eosinophils % 1.2 %; Hematocrit 41.5 % (37.5-50.1); Hemoglobin 13.4 g/dL (12.9-16.9); Immature Granulocytes % 0.3 % (0-4); Lymphocytes # 2.4 K/mcL (0.6-4.6); Lymphocytes % 36.6 %; Mean Corpuscular HGB Conc 32.3 g/dL (31.6-35.5); Mean Corpuscular Volume 96.1 fL (83.0-100.0); Monocytes # 0.9 K/mcL (0.0-1.3); Monocytes % 13.4 %; Neutrophils # 3.1 K/mcL (1.6-8.9); Platelet Count 196 K/mcL (140-400); Red Blood Count 4.32 M/mcL (4.19-5.50); Red Cell Distribution Width 16.2 % (11.5-14.5); White Blood Count 6.6 K/mcL (4.3-11.1)
[2020-08-26 02:16] LABS: Calcium 8.8 mg/dL (8.6-10.3); Potassium 3.7 mEq/L (3.5-5.1)
[2020-08-26] MEDS: 0.9 % Sodium Chloride 1,000 ML IVC SCH (04:05)
[2020-08-26] MEDS: Sennosides/Docusate Sodium TABLET PO SCH ×2 (08:22→21:01)
[2020-08-26] MEDS: Apixaban 5 MG TABLET PO SCH ×2 (08:22→21:00)
[2020-08-26] MEDS: levETIRAcetam 250 MG TABLET PO SCH ×2 (08:22→21:02)
[2020-08-26] MEDS: Amantadine Oral Soln 50 MG/5 ML UDC PO SCH ×2 (08:23→21:02)
[2020-08-26] MEDS: Docusate Oral Soln 100 MG/10 ML UDC PO SCH ×2 (08:23→21:00)
[2020-08-26 09:08] LABS: Acinetobacter baumannii by PCR Not Detected (Not Detect); Candida albicans by PCR Not Detected (Not Detect); Candida glabrata by PCR Not Detected (Not Detect); Candida krusei by PCR Not Detected (Not Detect); Candida parapsilosis by PCR Not Detected (Not Detect); Candida tropicalis by PCR Not Detected (Not Detect); Enterobacter cloacae Cmplx PCR Not Detected (Not Detect); Enterobacteriaceae by PCR Not Detected (Not Detect); Enterococcus by PCR Not Detected (Not Detect); Escherichia coli by PCR Not Detected (Not Detect); Klebsiella oxytoca by PCR Not Detected (Not Detect); Klebsiella pneumoniae by PCR Not Detected (Not Detect); Proteus by PCR Not Detected (Not Detect); Pseudomonas aeruginosa by PCR Not Detected (Not Detect); Serratia marcescens by PCR Not Detected (Not Detect); Staphylococcus aureus by PCR Not Detected (Not Detect); Staphylococcus by PCR DETECTED (Not Detect); Streptococcus agalactiae(B)PCR Not Detected (Not Detect); Streptococcus by PCR Not Detected (Not Detect); Streptococcus pneumoniae PCR Not Detected (Not Detect); Streptococcus pyogenes (A) PCR Not Detected (Not Detect); mecA Methicillin-Resist Gene Not Detected (Not Detect)
[2020-08-26] MEDS ORDERED: Vancomycin 1,750 MG in 0.9 % Sodium Chloride 250 ML IVPB SCH (10:00)
[2020-08-26] MEDS ORDERED: Vancomycin 1,750 MG/517.5 ML IV.SOLN IVPB SCH (11:00)
[2020-08-26] MEDS: Azithromycin 250 MG TABLET PO SCH (15:02)
[2020-08-26] MEDS: carvediloL 6.25 MG TABLET PO SCH (15:02)
[2020-08-27] MEDS: 0.9 % Sodium Chloride 1,000 ML IVC SCH ×3 (00:46→15:42)
[2020-08-27 05:22] LABS: Hematocrit 41.2 % (37.5-50.1); Hemoglobin 13.4 g/dL (12.9-16.9); Mean Corpuscular HGB Conc 32.5 g/dL (31.6-35.5); Mean Corpuscular Hemoglobin 30.6 pg (28.0-33.3); Mean Corpuscular Volume 94.1 fL (83.0-100.0); Mean Platelet Volume 10.8 fL (9.4-12.4); Platelet Count 193 K/mcL (140-400); Red Blood Count 4.38 M/mcL (4.19-5.50); Red Cell Distribution Width 16.1 % (11.5-14.5); White Blood Count 6.1 K/mcL (4.3-11.1)
[2020-08-27 05:42] LABS: Albumin 3.5 g/dL (3.5-5.7); Albumin/Globulin Ratio 1.1 (1.1-2.2); Bilirubin,Total 0.6 mg/dL (0.3-1.0); Calcium 9.1 mg/dL (8.6-10.3); Globulin 3.1 g/dL (2.4-3.5); Potassium 3.6 mEq/L (3.5-5.1); Total Protein 6.6 g/dL (6.4-8.9)
[2020-08-27] MEDS: levETIRAcetam 250 MG TABLET PO SCH ×2 (08:06→20:37)
[2020-08-27] MEDS: carvediloL 6.25 MG TABLET PO SCH (08:06)
[2020-08-27] MEDS: Amantadine Oral Soln 50 MG/5 ML UDC PO SCH ×2 (08:06→20:37)
[2020-08-27] MEDS: Docusate Oral Soln 100 MG/10 ML UDC PO SCH ×2 (08:06→20:37)
[2020-08-27] MEDS: Sennosides/Docusate Sodium TABLET PO SCH ×2 (08:06→20:37)
[2020-08-27] MEDS: Apixaban 5 MG TABLET PO SCH ×2 (08:06→20:37)
[2020-08-27] MEDS: Vancomycin 1,750 MG/517.5 ML IV.SOLN IVPB SCH (13:17)
[2020-08-27] MEDS: carvediloL 25 MG TABLET PO SCH ×2 (13:17→20:37)
[2020-08-27] MEDS: Azithromycin 250 MG TABLET PO SCH (13:17)
[2020-08-28] MEDS: Vancomycin 1,750 MG/517.5 ML IV.SOLN IVPB SCH ×2 (00:13→13:23)
[2020-08-28 05:48] LABS: Hemoglobin 12.8 g/dL (12.9-16.9); Mean Corpuscular HGB Conc 32.8 g/dL (31.6-35.5); Mean Corpuscular Hemoglobin 31.1 pg (28.0-33.3); Mean Corpuscular Volume 94.9 fL (83.0-100.0); Platelet Count 197 K/mcL (140-400); Red Blood Count 4.11 M/mcL (4.19-5.50); White Blood Count 5.8 K/mcL (4.3-11.1)
[2020-08-28 06:10] LABS: Albumin 3.5 g/dL (3.5-5.7); Albumin/Globulin Ratio 1.2 (1.1-2.2); Bilirubin,Total 0.7 mg/dL (0.3-1.0); Calcium 8.9 mg/dL (8.6-10.3); Potassium 3.9 mEq/L (3.5-5.1); Total Protein 6.5 g/dL (6.4-8.9)
[2020-08-28] MEDS: Docusate Oral Soln 100 MG/10 ML UDC PO SCH ×2 (07:49→20:51)
[2020-08-28] MEDS: 0.9 % Sodium Chloride 1,000 ML IVC SCH (07:49)
[2020-08-28] MEDS: Amantadine Oral Soln 50 MG/5 ML UDC PO SCH ×2 (07:50→20:51)
[2020-08-28] MEDS: Sennosides/Docusate Sodium TABLET PO SCH ×2 (07:51→20:51)
[2020-08-28] MEDS: Apixaban 5 MG TABLET PO SCH ×2 (07:51→20:51)
[2020-08-28] MEDS: levETIRAcetam 250 MG TABLET PO SCH ×2 (07:51→20:52)
[2020-08-28] MEDS: carvediloL 25 MG TABLET PO SCH ×2 (07:52→20:52)
[2020-08-28] MEDS: Azithromycin 250 MG TABLET PO SCH (13:22)
[2020-08-28] MEDS: cefTRIAXone 2,000 MG in 0.9 % Sodium Chloride Mini Bag 100 ML IVPB SCH (15:26)
[2020-08-29] MEDS: 0.9 % Sodium Chloride 1,000 ML IVC SCH ×2 (00:05→13:39)
[2020-08-29 05:28] LABS: Hematocrit 39.2 % (37.5-50.1); Hemoglobin 12.7 g/dL (12.9-16.9); Mean Corpuscular HGB Conc 32.4 g/dL (31.6-35.5); Mean Corpuscular Hemoglobin 30.8 pg (28.0-33.3); Mean Corpuscular Volume 95.1 fL (83.0-100.0); Mean Platelet Volume 10.8 fL (9.4-12.4); Platelet Count 185 K/mcL (140-400); Red Blood Count 4.12 M/mcL (4.19-5.50); Red Cell Distribution Width 16.3 % (11.5-14.5); White Blood Count 5.4 K/mcL (4.3-11.1)
[2020-08-29 05:53] LABS: Albumin 3.3 g/dL (3.5-5.7); Albumin/Globulin Ratio 1.1 (1.1-2.2); Bilirubin,Total 0.7 mg/dL (0.3-1.0); Calcium 8.9 mg/dL (8.6-10.3); Globulin 3.1 g/dL (2.4-3.5); Total Protein 6.4 g/dL (6.4-8.9)
[2020-08-29] MEDS: cefTRIAXone 2,000 MG in 0.9 % Sodium Chloride Mini Bag 100 ML IVPB SCH (08:07)
[2020-08-29] MEDS: Amantadine Oral Soln 50 MG/5 ML UDC PO SCH ×2 (08:08→20:15)
[2020-08-29] MEDS: Sennosides/Docusate Sodium TABLET PO SCH ×2 (08:08→20:14)
[2020-08-29] MEDS: Docusate Oral Soln 100 MG/10 ML UDC PO SCH ×2 (08:08→20:15)
[2020-08-29] MEDS: carvediloL 25 MG TABLET PO SCH ×2 (08:08→20:15)
[2020-08-29] MEDS: levETIRAcetam 250 MG TABLET PO SCH ×2 (08:08→20:15)
[2020-08-29] MEDS: Apixaban 5 MG TABLET PO SCH ×2 (08:09→20:15)
[2020-08-29] MEDS: Azithromycin 250 MG TABLET PO SCH (13:36)
[2020-08-30] MEDS: 0.9 % Sodium Chloride 1,000 ML IVC SCH ×2 (03:14→17:03)
[2020-08-30 05:54] LABS: Hematocrit 40.6 % (37.5-50.1); Mean Corpuscular Hemoglobin 30.5 pg (28.0-33.3); Mean Corpuscular Volume 95.3 fL (83.0-100.0); Mean Platelet Volume 10.4 fL (9.4-12.4); Platelet Count 196 K/mcL (140-400); Red Blood Count 4.26 M/mcL (4.19-5.50); White Blood Count 5.2 K/mcL (4.3-11.1)
[2020-08-30 06:15] LABS: Albumin 3.4 g/dL (3.5-5.7); Albumin/Globulin Ratio 1.1 (1.1-2.2); Bilirubin,Total 0.6 mg/dL (0.3-1.0); Globulin 3.1 g/dL (2.4-3.5); Potassium 3.7 mEq/L (3.5-5.1); Total Protein 6.5 g/dL (6.4-8.9)
[2020-08-30] MEDS: levETIRAcetam 250 MG TABLET PO SCH ×2 (09:56→20:37)
[2020-08-30] MEDS: Amantadine Oral Soln 50 MG/5 ML UDC PO SCH ×2 (09:57→20:38)
[2020-08-30] MEDS: Sennosides/Docusate Sodium TABLET PO SCH ×2 (09:57→20:37)
[2020-08-30] MEDS: Apixaban 5 MG TABLET PO SCH ×2 (09:57→20:37)
[2020-08-30] MEDS: Docusate Oral Soln 100 MG/10 ML UDC PO SCH ×2 (09:57→20:37)
[2020-08-30] MEDS: carvediloL 25 MG TABLET PO SCH ×2 (09:57→20:37)
[2020-08-30] MEDS: cefTRIAXone 2,000 MG in 0.9 % Sodium Chloride Mini Bag 100 ML IVPB SCH (09:58)
[2020-08-30] MEDS: Azithromycin 250 MG TABLET PO SCH (17:03)
[2020-08-30] MEDS ORDERED: amLODIPine 5 MG TABLET PO ONE (23:57)
[2020-08-31 02:43] LABS: Hematocrit 42.9 % (37.5-50.1); Mean Corpuscular HGB Conc 32.6 g/dL (31.6-35.5); Mean Corpuscular Hemoglobin 31.3 pg (28.0-33.3); Mean Corpuscular Volume 95.8 fL (83.0-100.0); Mean Platelet Volume 10.6 fL (9.4-12.4); Platelet Count 195 K/mcL (140-400); Red Blood Count 4.48 M/mcL (4.19-5.50); Red Cell Distribution Width 16.3 % (11.5-14.5); White Blood Count 6.1 K/mcL (4.3-11.1)
[2020-08-31 03:04] LABS: Albumin 3.8 g/dL (3.5-5.7); Albumin/Globulin Ratio 1.1 (1.1-2.2); Bilirubin,Total 0.4 mg/dL (0.3-1.0); Calcium 9.3 mg/dL (8.6-10.3); Globulin 3.4 g/dL (2.4-3.5); Potassium 3.9 mEq/L (3.5-5.1); Total Protein 7.2 g/dL (6.4-8.9)
[2020-08-31] MEDS: 0.9 % Sodium Chloride 1,000 ML IVC SCH (07:52)
[2020-08-31] MEDS: Docusate Oral Soln 100 MG/10 ML UDC PO SCH ×2 (07:53→19:59)
[2020-08-31] MEDS: levETIRAcetam 250 MG TABLET PO SCH ×2 (07:53→19:59)
[2020-08-31] MEDS: carvediloL 25 MG TABLET PO SCH ×2 (07:53→19:59)
[2020-08-31] MEDS: Furosemide 20 MG TABLET PO SCH (07:53)
[2020-08-31] MEDS: Apixaban 5 MG TABLET PO SCH ×2 (07:53→19:59)
[2020-08-31] MEDS: cefTRIAXone 2,000 MG in 0.9 % Sodium Chloride Mini Bag 100 ML IVPB SCH (07:54)
[2020-08-31] MEDS: Sennosides/Docusate Sodium TABLET PO SCH ×2 (07:54→19:59)
[2020-08-31] MEDS: Amantadine Oral Soln 50 MG/5 ML UDC PO SCH ×2 (07:58→19:59)
[2020-08-31] MEDS: Azithromycin 250 MG TABLET PO SCH (14:10)
[2020-09-01 07:14] LABS: Hemoglobin 12.8 g/dL (12.9-16.9); Mean Corpuscular Hemoglobin 30.7 pg (28.0-33.3); Mean Corpuscular Volume 95.9 fL (83.0-100.0); Mean Platelet Volume 11.1 fL (9.4-12.4); Platelet Count 181 K/mcL (140-400); Red Blood Count 4.17 M/mcL (4.19-5.50); Red Cell Distribution Width 15.9 % (11.5-14.5)
[2020-09-01 07:37] LABS: Calcium 9.1 mg/dL (8.6-10.3); Potassium 3.8 mEq/L (3.5-5.1)
[2020-09-01] MEDS: Docusate Oral Soln 100 MG/10 ML UDC PO SCH ×2 (08:47→20:31)
[2020-09-01] MEDS: Amantadine Oral Soln 50 MG/5 ML UDC PO SCH ×2 (08:48→20:31)
[2020-09-01] MEDS: Sennosides/Docusate Sodium TABLET PO SCH ×2 (08:48→20:38)
[2020-09-01] MEDS: Apixaban 5 MG TABLET PO SCH ×2 (08:48→20:32)
[2020-09-01] MEDS: carvediloL 25 MG TABLET PO SCH ×2 (08:48→20:32)
[2020-09-01] MEDS: cefTRIAXone 2,000 MG in 0.9 % Sodium Chloride Mini Bag 100 ML IVPB SCH (08:48)
[2020-09-01] MEDS: Furosemide 20 MG TABLET PO SCH (08:48)
[2020-09-01] MEDS: levETIRAcetam 250 MG TABLET PO SCH ×2 (08:48→20:32)
[2020-09-02 06:38] VITALS: BP 126/84
[2020-09-02] MEDS: Docusate Oral Soln 100 MG/10 ML UDC PO SCH (07:46)
[2020-09-02] MEDS: levETIRAcetam 250 MG TABLET PO SCH (07:46)
[2020-09-02] MEDS: Amantadine Oral Soln 50 MG/5 ML UDC PO SCH (07:46)
[2020-09-02] MEDS: carvediloL 25 MG TABLET PO SCH (07:47)
[2020-09-02] MEDS: Furosemide 20 MG TABLET PO SCH (07:47)
[2020-09-02] MEDS: Apixaban 5 MG TABLET PO SCH (07:47)
[2020-09-02] MEDS: Sennosides/Docusate Sodium TABLET PO SCH (07:47)
[2020-09-02 11:14] LABS: Adenovirus Not Detected (Not Detect); Bordetella Pertussis Not Detected (Not Detect); Chlamydophila pneumoniae Not Detected (Not Detect); Coronavirus 229E Not Detected (Not Detect); Coronavirus HKU1 Not Detected (Not Detect); Coronavirus NL63 Not Detected (Not Detect); Coronavirus OC43 Not Detected (Not Detect); Human Metapneumovirus Not Detected (Not Detect); Human Rhinovirus/Enterovirus Not Detected (Not Detect); Influenza A Subtype 2009 H1 Not Detected (Not Detect); Influenza B Not Detected (Not Detect); Mycoplasma pneumoniae Not Detected (Not Detect); Parainfluenza Virus 1 Not Detected (Not Detect); Parainfluenza Virus 2 Not Detected (Not Detect); Parainfluenza Virus 3 Not Detected (Not Detect); Parainfluenza Virus 4 Not Detected (Not Detect); Respiratory Syncytial Virus Not Detected (Not Detect); SARS-CoV-2 Not Detected (Not Detect)
== END 2020-09-02 13:53 | DRG 469 ==
LOC: EMEROOARM 11:35 → 3BNU 11:35 → SUATTDRO 13:13 → 3BNU 14:13 → SUATTDRO 08-27 10:02
PROVIDERS: ADMIT Internal Medicine; ATTEND Internal Medicine

== ENCOUNTER 2021-03-11 19:48 | Inpatient (IN) ==
[2021-03-11 20:19] LABS: VBG HCO3 28 mEq/L (21-27); VBG PCO2 48 mmHg (41-51); VBG PH 7.37 pH Units (7.32-7.42); VBG PO2 81 mmHg (25-50)
[2021-03-11 20:20] LABS: Basophils % 0.6 %; Eosinophils # 0.1 K/mcL (0.0-0.6); Eosinophils % 1.7 %; Hematocrit 45.1 % (37.5-50.1); Hemoglobin 14.7 g/dL (12.9-16.9); Immature Granulocytes % 0.2 % (0-4); Lymphocytes # 2.4 K/mcL (0.6-4.6); Lymphocytes % 45.8 %; Mean Corpuscular HGB Conc 32.6 g/dL (31.6-35.5); Mean Corpuscular Hemoglobin 29.9 pg (28.0-33.3); Mean Corpuscular Volume 91.9 fL (83.0-100.0); Mean Platelet Volume 11.4 fL (9.4-12.4); Monocytes # 0.5 K/mcL (0.0-1.3); Monocytes % 9.2 %; Neutrophils # 2.3 K/mcL (1.6-8.9); Platelet Count 173 K/mcL (140-400); Red Blood Count 4.91 M/mcL (4.19-5.50); Red Cell Distribution Width 15.9 % (11.5-14.5); Segmented Neutrophils % 42.5 %; White Blood Count 5.3 K/mcL (4.3-11.1)
[2021-03-11 20:29] LABS: INR 1.3; Prothrombin Time 14.7 Seconds (9.4-12.1)
[2021-03-11 20:31] LABS: Activated Partial Thrombo Time 41.2 Seconds (26.0-36.0)
[2021-03-11 20:42] LABS: Alanine Aminotransferase 10 Units/L (7-52); Albumin 3.9 g/dL (3.5-5.7); Albumin/Globulin Ratio 1.2 (1.1-2.2); Alkaline Phosphatase 135 Units/L (34-104); Aspartate Amino Transferase 11 Units/L (13-39); BUN/Creatinine Ratio 20 (6-26); Bilirubin,Total 0.5 mg/dL (0.3-1.0); Blood Urea Nitrogen 40 mg/dL (6-20); Calcium 9.3 mg/dL (8.6-10.3); Carbon Dioxide 28 mEq/L (23-29); Chloride 103 mEq/L (98-107); Globulin 3.3 g/dL (2.4-3.5); Glucose 130 mg/dL (70-105); Osmolality,Calculated 300 (280-300); Potassium 4.1 mEq/L (3.5-5.1); Sodium 139 mEq/L (136-145); Total Protein 7.2 g/dL (6.4-8.9); Troponin I < 0.03 ng/mL (< 0.04); eGFR For African Americans 42 (> 60); eGFR For Non-African Americans 34 (> 60)
[2021-03-11 20:57] LABS: Amphetamine Screen,Urine Negative ng/mL (Cutoff=1000); Barbiturate Screen,Urine Negative ng/mL (Cutoff=200); Benzodiazepines Screen,Urine Negative ng/mL (Cutoff=200); Cannabinoid Screen,Urine Negative ng/mL (Cutoff = 50); Cocaine Screen,Urine Negative ng/mL (Cutoff= 300); Opiate Screen,Urine Negative ng/mL (Cutoff=300); Phencyclidine Screen,Urine Negative ng/mL (Cutoff=25)
[2021-03-12 00:08] LABS: Bacteria,Urine Few per hpf (None-Few); Bilirubin,Urine Negative (Negative); Blood,Urine Negative (Negative); Clarity,Urine Clear (Clear); Color,Urine Light-Yellow (Yellow); Glucose,Urine (UA) Normal (Normal); Hyaline Casts,Urine Few per lpf (None Seen); Ketones,Urine Negative (Negative); Leukocyte Esterase,Urine Moderate (Negative); Mucus,Urine Few per lpf (None-Few); Nitrite,Urine Negative (Negative); Protein,Urine Trace mg/dL (Neg-Trace); RBC,Urine 0-3 per hpf (0-3); Specific Gravity,Urine 1.015 (1.010-1.025); Urobilinogen,Urine Normal (Normal)
[2021-03-12] MEDS ORDERED: Vancomycin 2,000 MG/520 ML IV.SOLN IVPB ONE (00:44)
[2021-03-12] MEDS ORDERED: cefTRIAXone 1,000 MG in 0.9 % Sodium Chloride Mini Bag 100 ML IVPB ONE (00:45)
[2021-03-12] MEDS ORDERED: Ondansetron 4 MG/2 ML VIAL IVP PRN (02:23)
[2021-03-12] MEDS ORDERED: Naloxone 0.4 MG/ML INJ IVP PRN (02:23)
[2021-03-12] MEDS ORDERED: Acetaminophen 325 MG TABLET PO PRN (02:23)
[2021-03-12] MEDS ORDERED: 0.9 % Sodium Chloride 500 ML IVC PRN (03:25)
[2021-03-12] MEDS ORDERED: 0.9 % Sodium Chloride 1,000 ML ONE (04:58)
[2021-03-12 06:22] LABS: Basophils % 0.5 %; Eosinophils % 0.5 %; Hematocrit 45.1 % (37.5-50.1); Immature Granulocytes % 0.1 % (0-4); Lymphocytes # 2.2 K/mcL (0.6-4.6); Lymphocytes % 28.9 %; Mean Corpuscular HGB Conc 33.3 g/dL (31.6-35.5); Mean Corpuscular Hemoglobin 30.6 pg (28.0-33.3); Mean Platelet Volume 11.4 fL (9.4-12.4); Monocytes # 0.7 K/mcL (0.0-1.3); Monocytes % 9.3 %; Neutrophils # 4.7 K/mcL (1.6-8.9); Platelet Count 174 K/mcL (140-400); Red Cell Distribution Width 15.8 % (11.5-14.5); Segmented Neutrophils % 60.7 %; White Blood Count 7.7 K/mcL (4.3-11.1)
[2021-03-12 07:01] LABS: Potassium 3.8 mEq/L (3.5-5.1)
[2021-03-12 07:02] LABS: Calcium 9.2 mg/dL (8.6-10.3); Magnesium 2.2 mg/dL (1.6-2.6)
[2021-03-12] MEDS: cefTRIAXone 1,000 MG in 0.9 % Sodium Chloride Mini Bag 100 ML IVPB SCH (10:42)
[2021-03-12] MEDS: Vancomycin 2,000 MG/520 ML IV.SOLN IVPB SCH (16:16)
[2021-03-13 02:56] LABS: Basophils % 0.5 %; Eosinophils # 0.1 K/mcL (0.0-0.6); Eosinophils % 1.1 %; Hematocrit 42.5 % (37.5-50.1); Hemoglobin 13.9 g/dL (12.9-16.9); Immature Granulocytes % 0.1 % (0-4); Lymphocytes # 2.4 K/mcL (0.6-4.6); Lymphocytes % 32.6 %; Mean Corpuscular HGB Conc 32.7 g/dL (31.6-35.5); Mean Corpuscular Hemoglobin 30.4 pg (28.0-33.3); Mean Platelet Volume 11.1 fL (9.4-12.4); Monocytes # 0.8 K/mcL (0.0-1.3); Monocytes % 10.8 %; Platelet Count 176 K/mcL (140-400); Red Blood Count 4.57 M/mcL (4.19-5.50); Red Cell Distribution Width 15.9 % (11.5-14.5); Segmented Neutrophils % 54.9 %; White Blood Count 7.3 K/mcL (4.3-11.1)
[2021-03-13 03:12] LABS: Calcium 8.5 mg/dL (8.6-10.3); Magnesium 2.1 mg/dL (1.6-2.6); Phosphorous 3.5 mg/dL (2.7-4.5); Potassium 3.6 mEq/L (3.5-5.1)
[2021-03-13 06:16] LABS: Adenovirus Not Detected (Not Detect); Bordetella Pertussis Not Detected (Not Detect); Chlamydophila pneumoniae Not Detected (Not Detect); Coronavirus 229E Not Detected (Not Detect); Coronavirus HKU1 Not Detected (Not Detect); Coronavirus NL63 Not Detected (Not Detect); Coronavirus OC43 Not Detected (Not Detect); Human Metapneumovirus Not Detected (Not Detect); Human Rhinovirus/Enterovirus Not Detected (Not Detect); Influenza A Subtype 2009 H1 Not Detected (Not Detect); Influenza B Not Detected (Not Detect); Mycoplasma pneumoniae Not Detected (Not Detect); Parainfluenza Virus 1 Not Detected (Not Detect); Parainfluenza Virus 2 Not Detected (Not Detect); Parainfluenza Virus 3 Not Detected (Not Detect); Parainfluenza Virus 4 Not Detected (Not Detect); Respiratory Syncytial Virus Not Detected (Not Detect); SARS-CoV-2 Not Detected (Not Detect)
[2021-03-13] MEDS: cefTRIAXone 1,000 MG in 0.9 % Sodium Chloride Mini Bag 100 ML IVPB SCH (08:01)
[2021-03-13] MEDS ORDERED: levETIRAcetam 250 MG TABLET PO ONE (16:00)
[2021-03-13] MEDS: carvediloL 25 MG TABLET PO SCH (18:18)
[2021-03-13] MEDS: Vancomycin 2,000 MG/520 ML IV.SOLN IVPB SCH (18:18)
[2021-03-13] MEDS: Docusate Oral Soln 100 MG/10 ML UDC PO SCH (21:03)
[2021-03-13] MEDS: levETIRAcetam 250 MG TABLET PO SCH (21:03)
[2021-03-13] MEDS: Apixaban 5 MG TABLET PO SCH (21:03)
[2021-03-14 04:44] LABS: Basophils % 0.7 %; Eosinophils # 0.1 K/mcL (0.0-0.6); Eosinophils % 2.1 %; Hematocrit 47.1 % (37.5-50.1); Hemoglobin 15.3 g/dL (12.9-16.9); Immature Granulocytes % 0.2 % (0-4); Lymphocytes % 34.1 %; Mean Corpuscular HGB Conc 32.5 g/dL (31.6-35.5); Mean Corpuscular Hemoglobin 30.3 pg (28.0-33.3); Mean Corpuscular Volume 93.3 fL (83.0-100.0); Mean Platelet Volume 11.4 fL (9.4-12.4); Monocytes # 0.8 K/mcL (0.0-1.3); Monocytes % 13.6 %; Neutrophils # 2.9 K/mcL (1.6-8.9); Platelet Count 170 K/mcL (140-400); Red Blood Count 5.05 M/mcL (4.19-5.50); Red Cell Distribution Width 15.9 % (11.5-14.5); Segmented Neutrophils % 49.3 %; White Blood Count 5.8 K/mcL (4.3-11.1)
[2021-03-14 04:47] LABS: Calcium 9.1 mg/dL (8.6-10.3); Magnesium 2.1 mg/dL (1.6-2.6); Phosphorous 3.4 mg/dL (2.7-4.5); Potassium 3.6 mEq/L (3.5-5.1)
[2021-03-14] MEDS: carvediloL 25 MG TABLET PO SCH (09:37)
[2021-03-14] MEDS: cefTRIAXone 1,000 MG in 0.9 % Sodium Chloride Mini Bag 100 ML IVPB SCH (09:37)
[2021-03-14] MEDS: Docusate Oral Soln 100 MG/10 ML UDC PO SCH (09:37)
[2021-03-14] MEDS: Apixaban 5 MG TABLET PO SCH (09:37)
[2021-03-14] MEDS: levETIRAcetam 250 MG TABLET PO SCH (09:37)
[2021-03-14 11:56] VITALS: BP 118/77; PULSE 67; TEMP 97; O2SAT 95
[2021-03-14 12:40] LABS: Adenovirus Not Detected (Not Detect); Bordetella Pertussis Not Detected (Not Detect); Chlamydophila pneumoniae Not Detected (Not Detect); Coronavirus 229E Not Detected (Not Detect); Coronavirus HKU1 Not Detected (Not Detect); Coronavirus NL63 Not Detected (Not Detect); Coronavirus OC43 Not Detected (Not Detect); Human Metapneumovirus Not Detected (Not Detect); Human Rhinovirus/Enterovirus Not Detected (Not Detect); Influenza A Subtype 2009 H1 Not Detected (Not Detect); Influenza B Not Detected (Not Detect); Mycoplasma pneumoniae Not Detected (Not Detect); Parainfluenza Virus 1 Not Detected (Not Detect); Parainfluenza Virus 2 Not Detected (Not Detect); Parainfluenza Virus 3 Not Detected (Not Detect); Parainfluenza Virus 4 Not Detected (Not Detect); Respiratory Syncytial Virus Not Detected (Not Detect); SARS-CoV-2 Not Detected (Not Detect)
== END 2021-03-14 16:37 | DRG 871 ==
LOC: EMEROOARM 19:48 → 3NENU 03-12 02:39
PROVIDERS: ADMIT Internal Medicine; ATTEND Internal Medicine

== ENCOUNTER 2021-09-15 18:26 | Inpatient (IN) ==
[2021-09-15 21:02] LABS: Basophils % 0.3 %; Eosinophils % 0.4 %; Hematocrit 44.2 % (37.5-50.1); Hemoglobin 14.4 g/dL (12.9-16.9); Immature Granulocytes % 0.4 % (0-4); Lymphocytes # 1.4 K/mcL (0.6-4.6); Lymphocytes % 19.7 %; Mean Corpuscular HGB Conc 32.6 g/dL (31.6-35.5); Mean Corpuscular Hemoglobin 29.9 pg (28.0-33.3); Mean Corpuscular Volume 91.7 fL (83.0-100.0); Mean Platelet Volume 10.2 fL (9.4-12.4); Monocytes # 0.8 K/mcL (0.0-1.3); Monocytes % 10.8 %; Neutrophils # 4.8 K/mcL (1.6-8.9); Platelet Count 179 K/mcL (140-400); Red Blood Count 4.82 M/mcL (4.19-5.50); Red Cell Distribution Width 14.3 % (11.5-14.5); Segmented Neutrophils % 68.4 %; White Blood Count 7.1 K/mcL (4.3-11.1)
[2021-09-15 21:21] LABS: Calcium 9.3 mg/dL (8.6-10.3); Potassium 4.1 mEq/L (3.5-5.1)
[2021-09-15] MEDS ORDERED: 0.9 % Sodium Chloride 1,000 ML IVC ONE (21:25)
[2021-09-15 21:30] LABS: Troponin I 0.04 ng/mL (< 0.04)
[2021-09-15] MEDS ORDERED: Acetaminophen 325 MG TABLET PO PRN (22:17)
[2021-09-15] MEDS ORDERED: Ondansetron 4 MG/2 ML VIAL IVP PRN (22:17)
[2021-09-15] MEDS ORDERED: Naloxone 0.4 MG/ML INJ IVP PRN (22:17)
[2021-09-15] MEDS: 0.9 % Sodium Chloride 1,000 ML IVC SCH (23:48)
[2021-09-16 00:36] LABS: Basophils % 0.5 %; Eosinophils % 0.5 %; Hematocrit 42.1 % (37.5-50.1); Hemoglobin 13.4 g/dL (12.9-16.9); Immature Granulocytes % 0.2 % (0-4); Lymphocytes # 2.1 K/mcL (0.6-4.6); Lymphocytes % 33.6 %; Mean Corpuscular HGB Conc 31.8 g/dL (31.6-35.5); Mean Corpuscular Hemoglobin 29.1 pg (28.0-33.3); Mean Corpuscular Volume 91.5 fL (83.0-100.0); Mean Platelet Volume 10.4 fL (9.4-12.4); Monocytes # 0.7 K/mcL (0.0-1.3); Monocytes % 10.8 %; Neutrophils # 3.4 K/mcL (1.6-8.9); Platelet Count 178 K/mcL (140-400); Red Cell Distribution Width 14.3 % (11.5-14.5); Segmented Neutrophils % 54.4 %; White Blood Count 6.3 K/mcL (4.3-11.1)
[2021-09-16 00:43] LABS: INR 1.3; Prothrombin Time 14.9 Seconds (9.4-12.1)
[2021-09-16 00:55] LABS: Albumin 3.7 g/dL (3.5-5.7); Albumin/Globulin Ratio 1.2 (1.1-2.2); Bilirubin,Direct 0.1 mg/dL (0.0-0.2); Bilirubin,Indirect 0.4 mg/dL (0.0-1.0); Bilirubin,Total 0.5 mg/dL (0.3-1.0); Globulin 3.1 g/dL (2.4-3.5); Total Protein 6.8 g/dL (6.4-8.9)
[2021-09-16 00:58] LABS: Calcium 8.9 mg/dL (8.6-10.3); Magnesium 2.2 mg/dL (1.6-2.6); Phosphorous 3.8 mg/dL (2.7-4.5); Potassium 3.6 mEq/L (3.5-5.1)
[2021-09-16 01:04] LABS: Troponin I 0.06 ng/mL (< 0.04)
[2021-09-16] MEDS ORDERED: Perflutren Lipid Microsphere 1.3 ML in 0.9 % Sodium Chloride 8.7 ML IVP PRN (01:52)
[2021-09-16 05:05] LABS: Amphetamine Screen,Urine Negative ng/mL (Cutoff=1000); Barbiturate Screen,Urine Negative ng/mL (Cutoff=200); Benzodiazepines Screen,Urine Negative ng/mL (Cutoff=200); Cannabinoid Screen,Urine Negative ng/mL (Cutoff = 50); Cocaine Screen,Urine Negative ng/mL (Cutoff= 300); Opiate Screen,Urine Negative ng/mL (Cutoff=300); Phencyclidine Screen,Urine Negative ng/mL (Cutoff=25)
[2021-09-16 05:26] LABS: Bilirubin,Urine Negative (Negative); Blood,Urine Negative (Negative); Clarity,Urine Clear (Clear); Color,Urine Colorless (Yellow); Glucose,Urine (UA) Normal (Normal); Ketones,Urine Negative (Negative); Leukocyte Esterase,Urine Negative (Negative); Nitrite,Urine Negative (Negative); Protein,Urine Negative (Neg-Trace); Specific Gravity,Urine 1.011 (1.010-1.025); Urobilinogen,Urine Normal (Normal)
[2021-09-16] MEDS ORDERED: *HR* Metoprolol 5 MG/5 ML VIAL IVP ONE (05:32)
[2021-09-16] MEDS: Apixaban 5 MG TABLET PO SCH ×2 (08:40→20:50)
[2021-09-16] MEDS: carvediloL 25 MG TABLET PO SCH ×2 (08:40→16:39)
[2021-09-16] MEDS: levETIRAcetam 250 MG TABLET PO SCH ×2 (08:41→20:50)
[2021-09-16] MEDS: 0.9 % Sodium Chloride 1,000 ML IVC SCH (08:41)
[2021-09-16] MEDS: Docusate Oral Soln 100 MG/10 ML UDC PO SCH ×2 (08:42→20:51)
[2021-09-16] MEDS ORDERED: Furosemide 40 MG TABLET PO SCH (09:00)
[2021-09-16] MEDS: Amantadine Oral Soln 50 MG/5 ML UDC PO SCH (10:25)
[2021-09-16] MEDS ORDERED: polyethylene glycoL 3350 17 GM POWD.PACK PO PRN (14:22)
[2021-09-16] MEDS: Melatonin 3 MG TABLET PO SCH (20:51)
[2021-09-17 02:06] LABS: Hematocrit 42.1 % (37.5-50.1); Hemoglobin 13.8 g/dL (12.9-16.9); Mean Corpuscular HGB Conc 32.8 g/dL (31.6-35.5); Mean Corpuscular Hemoglobin 29.5 pg (28.0-33.3); Mean Platelet Volume 10.1 fL (9.4-12.4); Platelet Count 183 K/mcL (140-400); Red Blood Count 4.68 M/mcL (4.19-5.50); Red Cell Distribution Width 14.3 % (11.5-14.5); White Blood Count 5.6 K/mcL (4.3-11.1)
[2021-09-17 02:29] LABS: Calcium 8.9 mg/dL (8.6-10.3); Magnesium 2.3 mg/dL (1.6-2.6); Potassium 3.5 mEq/L (3.5-5.1)
[2021-09-17] MEDS: Docusate Oral Soln 100 MG/10 ML UDC PO SCH ×2 (10:05→20:06)
[2021-09-17] MEDS: Furosemide 40 MG TABLET PO SCH (10:06)
[2021-09-17] MEDS: Apixaban 5 MG TABLET PO SCH ×2 (10:06→20:02)
[2021-09-17] MEDS: levETIRAcetam 250 MG TABLET PO SCH ×2 (10:06→20:02)
[2021-09-17] MEDS: carvediloL 25 MG TABLET PO SCH ×2 (10:15→16:34)
[2021-09-17] MEDS: Melatonin 3 MG TABLET PO SCH (20:02)
[2021-09-18 03:05] LABS: Hematocrit 44.5 % (37.5-50.1); Hemoglobin 14.2 g/dL (12.9-16.9); Mean Corpuscular HGB Conc 31.9 g/dL (31.6-35.5); Mean Corpuscular Hemoglobin 29.3 pg (28.0-33.3); Mean Corpuscular Volume 91.8 fL (83.0-100.0); Mean Platelet Volume 10.4 fL (9.4-12.4); Platelet Count 196 K/mcL (140-400); Red Blood Count 4.85 M/mcL (4.19-5.50); Red Cell Distribution Width 14.3 % (11.5-14.5); White Blood Count 5.7 K/mcL (4.3-11.1)
[2021-09-18 03:35] LABS: Calcium 9.2 mg/dL (8.6-10.3); Potassium 3.6 mEq/L (3.5-5.1)
[2021-09-18] MEDS: Docusate Oral Soln 100 MG/10 ML UDC PO SCH ×2 (08:41→20:30)
[2021-09-18] MEDS: carvediloL 25 MG TABLET PO SCH ×2 (08:41→16:45)
[2021-09-18] MEDS: Apixaban 5 MG TABLET PO SCH ×2 (08:41→20:30)
[2021-09-18] MEDS: levETIRAcetam 250 MG TABLET PO SCH ×2 (08:41→20:29)
[2021-09-18] MEDS: Furosemide 40 MG TABLET PO SCH (08:42)
[2021-09-18] MEDS: lisinopriL 5 MG TABLET PO SCH (12:47)
[2021-09-18] MEDS: Metoclopramide HCl 10 MG TABLET PO SCH ×2 (12:48→16:52)
[2021-09-18] MEDS: Melatonin 3 MG TABLET PO SCH (20:29)
[2021-09-18] MEDS: Amantadine Oral Soln 50 MG/5 ML UDC PO SCH (20:30)
[2021-09-19 07:20] VITALS: O2SAT 95
[2021-09-19] MEDS: carvediloL 25 MG TABLET PO SCH (08:21)
[2021-09-19] MEDS: Apixaban 5 MG TABLET PO SCH (08:21)
[2021-09-19] MEDS: lisinopriL 5 MG TABLET PO SCH (08:21)
[2021-09-19] MEDS: Furosemide 40 MG TABLET PO SCH (08:21)
[2021-09-19] MEDS: levETIRAcetam 250 MG TABLET PO SCH (08:22)
[2021-09-19] MEDS: Docusate Oral Soln 100 MG/10 ML UDC PO SCH (08:22)
[2021-09-19] MEDS: Amantadine Oral Soln 50 MG/5 ML UDC PO SCH (08:22)
[2021-09-19] MEDS: Metoclopramide HCl 10 MG TABLET PO SCH ×2 (08:22→11:50)
[2021-09-19 09:13] LABS: Influenza A PCR Negative (Negative); Influenza B PCR Negative (Negative); Resp. Syncytial Virus PCR Negative (Negative); SARS-CoV-2 by PCR (In House) Negative (Negative)
[2021-09-19 10:55] VITALS: BP 125/88; PULSE 76; TEMP 98.6
== END 2021-09-19 14:32 | DRG 56 ==
LOC: EMEROOARM 18:26 → 2NENU 18:26 → SUATTDRO 22:17 → 2NENU 23:01
PROVIDERS: ADMIT Student in an Organized Health Care Education/Training Program; ATTEND Internal Medicine